=== PATIENT | male | born 1965 | race Caucasian/White ===

== ENCOUNTER 2018-03-26 18:21 | Inpatient (IN) | payer BC, OTHER ==
[2018-03-26] MEDS ORDERED: ONDANSETRON 4 MG/2 ML VIAL IVP STA ×2 (18:37→19:40)
[2018-03-26] MEDS ORDERED: SODIUM CHLORIDE 0.9% 1,000 ML IV ONE ×2 (18:37→19:39)
--- NOTE | 2018-03-26 18:42 | ED ---
General Adult HPI - General Chief complaint: Psychiatric Symptoms Stated complaint: EPS eval Time Seen by Provider: 03/26/18 18:25 Source: patient, EMS, RN notes reviewed Mode of arrival: EMS Limitations: no limitations - History of Present Illness Initial comments: This is a 53-year-old male presents emergency department because he is intoxicated. Patient states she's been vomiting all day today though he keeps drinking alcohol. Patient states she's here because it like to be detoxed. Patient denies any drug use. Patient denies suicidal or homicidal ideations. Patient denies any pain. Patient states his only complaint is a vomiting he wants to stop drinking. Patient denies headache patient denies numbness weakness. Patient denies chest pain palpitations difficulty breathing or shortness of breath. Patient denies any recent fever chills or cough. She denies abdominal pain. Patient remains nauseated. - Related Data Home Medications Medication Instructions Recorded Confirmed Losartan Potassium 100 mg PO DAILY 08/06/15 09/04/15 traZODone HCL 450 mg PO HS 08/06/15 09/04/15 Previous Rx's Medication Instructions Recorded ALPRAZolam [Xanax] 0.5 mg PO BID PRN #40 tablet 09/07/15 Omeprazole [PriLOSEC] 40 mg PO DAILY #30 capsule. 09/07/15 Allergies Allergy/AdvReac Type Severity Reaction Status Date / Time No Known Allergies Allergy Verified 03/26/18 18:27 Review of Systems ROS Statement: Those systems with pertinent positive or pertinent negative responses have been documented in the HPI. ROS Other: All systems not noted in ROS Statement are negative. Past Medical History Past Medical History: Hypertension, Pneumonia Additional Past Medical History / Comment(s): etoh abuse History of Any Multi-Drug Resistant Organisms: None Reported Past Surgical History: Breast Surgery Additional Past Surgical History / Comment(s): fatty mass removed from breast right 2005. wisdom teeth removed Past Anesthesia/Blood Transfusion Reactions: No Reported Reaction Past Psychological History: Anxiety, Depression Smoking Status: Former smoker Past Alcohol Use History: Abuse, Daily, Heavy Past Drug Use History: None Reported - Past Family History Father Additional Family Medical History / Comment(s): heavy etoh and depression General Exam - General Exam Comments Initial Comments: GENERAL: Patient is well-developed and well-nourished. Patient is nontoxic and well- hydrated and is in no acute distress. Patient appears intoxicated ENT: Neck is soft and supple. No significant lymphadenopathy is noted. Oropharynx is clear. Moist mucous membranes. Neck has full range of motion without eliciting any pain. EYES: The sclera were anicteric and conjunctiva were pink and moist. Extraocular movements were intact and pupils were equal round and reactive to light. Eyelids were unremarkable. PULMONARY: Unlabored respirations. Good breath sounds bilaterally. No audible rales rhonchi or wheezing was noted. CARDIOVASCULAR: There is a regular rate and rhythm without any murmurs gallops or rubs. ABDOMEN: Soft and nontender with normal bowel sounds. No palpable organomegaly was noted. There is no palpable pulsatile mass. SKIN: Skin is clear with no lesions or rashes and otherwise unremarkable. NEUROLOGIC: Patient is alert and oriented x3. Cranial nerves II through XII are grossly intact. Motor and sensory are also intact. Normal speech, volume and content. Symmetrical smile. MUSCULOSKELETAL: Normal extremities with adequate strength and full range of motion. No lower extremity swelling or edema. No calf tenderness. LYMPHATICS: No significant lymphadenopathy is noted PSYCHIATRIC: Normal psychiatric evaluation. Normal interpersonal interactions appears functionally intact in deals appropriately with others. No signs of depression. No signs of anxiety patient denies suicidal or homicidal ideations. Limitations: no limitations Course Vital Signs 03/26/18 18:27 Temperature 98.6 F Pulse Rate 104 H Respiratory 18 Rate Blood Pressure 132/70 O2 Sat by Pulse 98 Oximetry Medical Decision Making - Medical Decision Making Patient denied suicidal ideations to myself but he did tell nursing after I spoke with him that he was suicidal and he told EMS prior to me speaking to them that he was suicidal. Patient will be evaluated by psych after he is sober - Lab Data Result diagrams: 03/26/18 18:50 03/26/18 18:50 Lab Results 03/26/18 03/26/18 Range/Units 18:50 18:50 WBC 9.2 (3.8-10.6) k/uL RBC 4.98 (4.30-5.90) m/uL Hgb 16.3 (13.0-17.5) gm/dL Hct 48.0 (39.0-53.0) % MCV 96.4 (80.0-100.0) fL MCH 32.7 (25.0-35.0) pg MCHC 33.9 (31.0-37.0) g/dL RDW 17.7 H (11.5-15.5) % Plt Count 128 L (150-450) k/uL Neutrophils % 92 % Lymphocytes % 3 % Monocytes % 3 % Eosinophils % 1 % Basophils % 0 % Neutrophils # 8.5 H (1.3-7.7) k/uL Lymphocytes # 0.3 L (1.0-4.8) k/uL Monocytes # 0.3 (0-1.0) k/uL Eosinophils # 0.1 (0-0.7) k/uL Basophils # 0.0 (0-0.2) k/uL Anisocytosis Slight Macrocytosis Slight Sodium 137 (137-145) mmol/L Potassium 3.3 L (3.5-5.1) mmol/L Chloride 85 L (98-107) mmol/L Carbon Dioxide 18 L (22-30) mmol/L Anion Gap 34 mmol/L BUN 11 (9-20) mg/dL Creatinine 0.90 (0.66-1.25) mg/dL Est GFR (CKD-EPI)AfAm >90 (>60 ml/min/1.73 sqM) Est GFR (CKD-EPI)NonAf >90 (>60 ml/min/1.73 sqM) Glucose 115 H (74-99) mg/dL Calcium 8.4 (8.4-10.2) mg/dL Magnesium 1.9 (1.6-2.3) mg/dL Total Bilirubin 1.7 H (0.2-1.3) mg/dL AST 189 H (17-59) U/L ALT 163 H (21-72) U/L Alkaline Phosphatase 49 (38-126) U/L Total Protein 7.1 (6.3-8.2) g/dL Albumin 4.7 (3.5-5.0) g/dL Serum Alcohol 388 mg/dL Disposition Clinical Impression: Alcohol intoxication, Suicidal ideations Disposition: ADMITTED IP TO THIS HOSP Referrals: Wally Steward MD [Primary Care Provider] - 1-2 days Time of Disposition: 19:38
[2018-03-26] MEDS ORDERED: SODIUM CHLORIDE 0.9% 1,000 ML with MVI, ADULT NO.4 WITH VIT K 10 ML, THIAMINE 100 MG, F... IV ONE ×4 (19:00)
[2018-03-26 19:04] LABS: Anisocytosis Slight; Basophils % (A) 0 %; Eosinophils # (A) 0.1 k/uL (0-0.7); Eosinophils % (A) 1 %; HGB 16.3 gm/dL (13.0-17.5); Lymphocytes # (A) 0.3 k/uL (1.0-4.8); Lymphocytes % (A) 3 %; MCH 32.7 pg (25.0-35.0); MCHC 33.9 g/dL (31.0-37.0); MCV 96.4 fL (80.0-100.0); Macrocytosis Slight; Monocytes # (A) 0.3 k/uL (0-1.0); Monocytes % (A) 3 %; Neutrophils # (A) 8.5 k/uL (1.3-7.7); Neutrophils % (A) 92 %; Platelet Count 128 k/uL (150-450); RBC 4.98 m/uL (4.30-5.90); RDW 17.7 % (11.5-15.5); WBC 9.2 k/uL (3.8-10.6)
[2018-03-26 19:15] LABS: ALT 163 U/L (21-72); AST 189 U/L (17-59); Albumin 4.7 g/dL (3.5-5.0); Alkaline Phosphatase 49 U/L (38-126); Anion Gap 34 mmol/L; Blood Urea Nitrogen 11 mg/dL (9-20); Calcium 8.4 mg/dL (8.4-10.2); Carbon Dioxide 18 mmol/L (22-30); Chloride 85 mmol/L (98-107); Glucose 115 mg/dL (74-99); Magnesium 1.9 mg/dL (1.6-2.3); Potassium 3.3 mmol/L (3.5-5.1); Sodium 137 mmol/L (137-145); Total Bilirubin 1.7 mg/dL (0.2-1.3); Total Protein 7.1 g/dL (6.3-8.2)
[2018-03-26 19:29] LABS: Alcohol 388 mg/dL
[2018-03-26] MEDS ORDERED: LORazepam 2 MG/ML INJ IV PRN (19:39)
[2018-03-26] MEDS ORDERED: THIAMINE 100 MG/ML 2 ML VIAL IM STA (19:39)
[2018-03-26] MEDS: LORazepam 2 MG/ML INJ IV PRN ×3 (20:40→22:47)
[2018-03-26 21:49] LABS: Amphetamine Screen,Urine Not Detected (NotDetected); Barbiturate Screen,Urine Not Detected (NotDetected); Benzodiazepines Screen,Urine Not Detected (NotDetected); Cocaine Screen,Urine Not Detected (NotDetected); Methadone Screen, Urine Not Detected (NotDetected); Opiate Screen,Urine Not Detected (NotDetected); Oxycodone Screen, Urine Not Detected (NotDetected); Phencyclidine Screen,Urine Not Detected (NotDetected); Tricyclic Antidepressant,Urine Not Detected (NotDetected); Urn Cannabinoid Scrn Not Detected (NotDetected)
[2018-03-27] MEDS: LORazepam 2 MG/ML INJ IV PRN ×6 (01:55→23:24)
[2018-03-27] MEDS: ONDANSETRON 4 MG/2 ML VIAL IVP PRN (03:44)
[2018-03-27 07:17] LABS: Anisocytosis Slight; Basophils % (A) 0 %; Eosinophils # (A) 0.1 k/uL (0-0.7); Eosinophils % (A) 1 %; HCT 42.6 % (39.0-53.0); Lymphocytes # (A) 0.5 k/uL (1.0-4.8); Lymphocytes % (A) 5 %; MCH 31.7 pg (25.0-35.0); MCHC 32.8 g/dL (31.0-37.0); MCV 96.8 fL (80.0-100.0); Macrocytosis Slight; Monocytes # (A) 0.4 k/uL (0-1.0); Monocytes % (A) 4 %; Neutrophils # (A) 7.9 k/uL (1.3-7.7); Neutrophils % (A) 89 %; Platelet Count 128 k/uL (150-450); RDW 17.4 % (11.5-15.5)
[2018-03-27 07:29] LABS: Anion Gap 24 mmol/L; Blood Urea Nitrogen 17 mg/dL (9-20); Calcium 7.9 mg/dL (8.4-10.2); Carbon Dioxide 24 mmol/L (22-30); Chloride 87 mmol/L (98-107); Glucose 128 mg/dL (74-99); Potassium 3.6 mmol/L (3.5-5.1); Sodium 135 mmol/L (137-145)
[2018-03-27 07:35] LABS: Glucose,Whole Blood 143 mg/dL (75-99)
--- NOTE | 2018-03-27 08:44 | P.CONS ---
History of Present Illness - Reason for Consult Consult date: 03/27/18 GI bleed Requesting physician: Wally Steward - History of Present Illness 53-year-old male admitted with acute emesis intoxicated requesting assistance with alcohol abuse. Patient has been binge drinking liquor on a daily basis for 3 weeks. Prior to that he has been sober. He has a history of depression and EtOH abuse. Earlier this morning he had 2 large coffee-ground mixed burgundy-colored emesis total of about 300-400 mL. He is transferred to the ICU for further monitoring. Presently he is reporting some mild midepigastric discomfort. His last emesis was within a half hour personally witnessed a mixed of coffee-ground breast-colored bile. Sandostatin and intravenous Protonix started. Admission he will and 16.3 presently 14. Platelet 128. BUN 17. Creatinine 0.7. Total bilirubin 1.7. AST 189. ALT 163. Alkaline phosphates 49. Serum alcohol yesterday evening 388. Endoscopic history: 1. EGD August 2015 secondary to an upper GI bleed findings were severe erosive esophagitis with ulceration. Review of Systems Constitutional: Denies fever, chills, sweats, weight gain, or loss. HEENT: Negative for migraines, blurred vision or loss, earaches, drainage, tinnitus, oral mucosal lesions, dysphagia, or odynophagia. Cardiac: Negative for chest pain, arrhythmias, or palpitation. Respiratory: Negative for shortness of breath, hemoptysis, cough, or sputum production. Gastrointestinal: See HPI for pertinent findings. Genitourinary: Negative for hematuria, urgency, frequency, polyuria, dysuria, or penile discharge. Musculoskeletal: Negative for muscle aches, swelling, arthritis, and arthralgias. Neurologic: Negative for stroke or TIA. Endocrine: Negative for thyroid problems. Skin: Negative for rash or itching. Psychiatric: Negative history for depression and anxiety Past Medical History Past Medical History: Hypertension, Pneumonia Additional Past Medical History / Comment(s): etoh abuse History of Any Multi-Drug Resistant Organisms: None Reported Past Surgical History: Breast Surgery Additional Past Surgical History / Comment(s): fatty mass removed from breast right 2005. wisdom teeth removed Past Anesthesia/Blood Transfusion Reactions: No Reported Reaction Past Psychological History: Anxiety, Depression Smoking Status: Former smoker Past Alcohol Use History: Abuse, Daily, Heavy Past Drug Use History: None Reported - Past Family History Mother Family Medical History: No Reported History Father Additional Family Medical History / Comment(s): heavy etoh and depression Medications and Allergies Home Medications Medication Instructions Recorded Confirmed Type Losartan Potassium 100 mg PO DAILY 08/06/15 09/04/15 History traZODone HCL 450 mg PO HS 08/06/15 09/04/15 History ALPRAZolam [Xanax] 0.5 mg PO BID PRN #40 tablet 09/07/15 Rx Omeprazole [PriLOSEC] 40 mg PO DAILY #30 capsule. 09/07/15 Rx Allergies Allergy/AdvReac Type Severity Reaction Status Date / Time No Known Allergies Allergy Verified 03/26/18 18:27 Physical Exam Vitals: Vital Signs Temp Pulse Pulse Resp BP BP BP 03/27/18 06:59 98.7 F 141 H 20 125/77 03/27/18 04:17 99.3 F 120 H 18 136/70 03/26/18 22:36 99.8 F H 114 H 20 131/62 03/26/18 20:45 99.3 F 104 H 16 143/69 03/26/18 20:00 97.6 F 98 18 139/84 03/26/18 18:27 98.6 F 104 H 18 132/70 Pulse Ox 03/27/18 06:59 96 03/27/18 04:17 93 L 03/26/18 22:36 92 L 03/26/18 20:45 95 03/26/18 20:00 94 L 03/26/18 18:27 98 Intake and Output 03/26/18 03/27/18 03/27/18 22:59 06:59 14:59 Other: Voiding Method Toilet Urinal # Voids 2 2 Weight 90.718 kg General appearance: The patient is alert, oriented, in no acute distress. HET: Head is normocephalic and atraumatic. Pupils are equal and reactive. Oropharynx is clear without lesions. Neck: Supple without lymphadenopathy. Trachea midline. Heart: S1 S2. Regular rate and rhythm. Lungs: No crackles or wheezes are heard. Abdomen: Soft, mild midepigastric tenderness(, nondistended with bowel sounds. No peritoneal signs. No palpable organomegaly or masses. Extremities: Normal skin color and turgor. No cyanosis, rash, ulceration, clubbing, or edema. Radial and pedal pulses are 2/4 bilaterally. Neurological: No focal deficits. Strength and sensation are grossly intact. Results CBC & Chem 7: 03/27/18 07:05 03/27/18 07:05 Labs: Abnormal Lab Results - Last 24 Hours (Table) 03/26/18 03/26/18 03/27/18 Range/Units 18:50 18:50 07:05 RDW 17.7 H 17.4 H (11.5-15.5) % Plt Count 128 L 128 L (150-450) k/uL Neutrophils # 8.5 H 7.9 H (1.3-7.7) k/uL Lymphocytes # 0.3 L 0.5 L (1.0-4.8) k/uL Sodium (137-145) mmol/L Potassium 3.3 L (3.5-5.1) mmol/L Chloride 85 L (98-107) mmol/L Carbon Dioxide 18 L (22-30) mmol/L Glucose 115 H (74-99) mg/dL POC Glucose (mg/dL) (75-99) mg/dL Calcium (8.4-10.2) mg/dL Total Bilirubin 1.7 H (0.2-1.3) mg/dL AST 189 H (17-59) U/L ALT 163 H (21-72) U/L 03/27/18 03/27/18 Range/Units 07:05 07:32 RDW (11.5-15.5) % Plt Count (150-450) k/uL Neutrophils # (1.3-7.7) k/uL Lymphocytes # (1.0-4.8) k/uL Sodium 135 L (137-145) mmol/L Potassium (3.5-5.1) mmol/L Chloride 87 L (98-107) mmol/L Carbon Dioxide (22-30) mmol/L Glucose 128 H (74-99) mg/dL POC Glucose (mg/dL) 143 H (75-99) mg/dL Calcium 7.9 L (8.4-10.2) mg/dL Total Bilirubin (0.2-1.3) mg/dL AST (17-59) U/L ALT (21-72) U/L Assessment and Plan (1) Gastrointestinal hemorrhage Narrative/Plan: Acute upper GI bleed mixed coffee-ground mixed burgundy-colored emesis with a history of binge drinking daily 3 weeks underlying EtOH abuse and depression. Possible alcohol-induced erosive gastritis esophagitis possible peptic ulcer disease possible varices. Current Visit: No Status: Acute Code(s): K92.2 - GASTROINTESTINAL HEMORRHAGE , UNSPECIFIED SNOMED Code(s): 93785720 (2) Alcoholic hepatitis Current Visit: Yes Status: Acute Code(s): K70.10 - ALCOHOLIC HEPATITIS WITHOUT ASCITES SNOMED Code(s): 908436391 (3) Suicidal ideation Current Visit: Yes Status: Acute Code(s): R45.851 - SUICIDAL IDEATIONS SNOMED Code(s): 6052678 Plan: 1. EGD. Nothing by mouth. CBC every 6 hours. 2. IV Protonix 40 mg twice a day. Intravenous Sandostatin. 3. PT/INR. Serum alcohol reevaluation. 4. CIWA protocol. 5. Alcohol abstinence advised. 6. Social work consult patient requesting assistance for alcoholism. The premium service representative has discussed the risks, benefits and alternative therapies for the above-mentioned procedure and for both sedation/analgesia as well as necessary blood product administration, if indicated, as they pertain to this patient. The patient has indicated understanding and acceptance of the risks and procedures discussed. Thank you for this kind referral and the opportunity to participate in the care of your patient. This consultation was discussed with Dr. Do. The impression and plan of care have been directed as dictated.
[2018-03-27] MEDS: OCTREOTIDE 200 MCG in SODIUM CHLORIDE 0.9% 100 ML IV SCH ×2 (08:45→20:00)
[2018-03-27] MEDS ORDERED: SODIUM CHLORIDE 0.9% 1,000 ML IV ONE (09:01)
[2018-03-27 09:08] LABS: INR 1.1 (<1.2)
--- NOTE | 2018-03-27 09:08 | P.CNPUL ---
History of Present Illness Consult date: 03/27/18 Chief complaint: Upper GI bleeding History of present illness: A 53-year-old alcoholic coming in with acute alcohol intoxication and subsequently moved out to the ICU because of recurrent upper GI bleeding. His earlier this morning the patient has had multiple episodes of upper GI bleed was bringing up bright red blood and at times coffee-ground material in significant amounts. The patient has been estimated to throb approximately 400 mL of bloody material. He is feeling nauseous. No aspiration. No epistaxis. No melanotic stools. No abdominal pain. His alcohol level was above 300 at time of admission. He admits to binge drink alcohol. His been scoped approximately 3 years ago and he was found to have some distal esophagitis. He came in with a hemoglobin of 16.3 with subsequently dropped down to 14.0. He is tachycardic with a heart rate of 120 and going up to 1:30 sinus rhythm. He is producing urine output and he has adequate pulses in all 4 extremities. No ascites. He is awake and alert and following commands and answering questions appropriately. Renal function is also within normal limits. LFTs are abnormal with an AST of 189 and alkaline phosphatase of 49 and ALP of 163. GI is on the case. We are planning to do EGD within next few hours. Patient was started on IV Protonix. The patient was started on IV Sandostatin. Review of Systems Constitutional: Reports fatigue, Reports lethargy, Reports weight loss Eyes: denies blurred vision, denies bulging eye, denies decreased vision Ears: deny: decreased hearing, ear discharge, earache, tinnitus Ears, nose, mouth and throat: Denies headache, Denies sore throat Cardiovascular: Denies chest pain, Denies shortness of breath Respiratory: Denies cough Gastrointestinal: Reports bloating, Reports coffee ground emesis, Reports heartburn, Reports nausea Genitourinary: Reports as per HPI Musculoskeletal: Denies myalgias Musculoskeletal: absent: ankle pain, ankle stiffness, ankle swelling Integumentary: Denies pruritus, Denies rash Neurological: Denies numbness, Denies weakness Psychiatric: Denies anxiety, Denies depression Endocrine: Denies fatigue, Denies weight change Hematologic/Lymphatic: Reports as per HPI Allergic/Immunologic: Reports as per HPI Past Medical History Past Medical History: Hypertension, Pneumonia Additional Past Medical History / Comment(s): Alcoholism, previous history of upper GI bleed/esophagitis, anxiety, depression , hyperlipidemia History of Any Multi-Drug Resistant Organisms: None Reported Past Surgical History: Breast Surgery Additional Past Surgical History / Comment(s): fatty mass removed from breast right 2005, wisdom teeth removed Past Anesthesia/Blood Transfusion Reactions: No Reported Reaction Past Psychological History: Anxiety, Depression Smoking Status: Former smoker Past Alcohol Use History: Abuse, Daily, Heavy Additional Past Alcohol Use History / Comment(s): The patient binge drinks alcohol and he drank a fifth of vodka for yesterday. Past Drug Use History: None Reported - Past Family History Mother Family Medical History: No Reported History Father Additional Family Medical History / Comment(s): heavy etoh and depression Medications and Allergies Home Medications Medication Instructions Recorded Confirmed Type Losartan Potassium 100 mg PO DAILY 08/06/15 09/04/15 History traZODone HCL 450 mg PO HS 08/06/15 09/04/15 History ALPRAZolam [Xanax] 0.5 mg PO BID PRN #40 tablet 09/07/15 Rx Omeprazole [PriLOSEC] 40 mg PO DAILY #30 capsule. 09/07/15 Rx Allergies Allergy/AdvReac Type Severity Reaction Status Date / Time No Known Allergies Allergy Verified 03/26/18 18:27 Physical Exam Vitals: Vital Signs Temp Pulse Pulse Resp BP BP BP 03/27/18 06:59 98.7 F 141 H 20 125/77 03/27/18 04:17 99.3 F 120 H 18 136/70 03/26/18 22:36 99.8 F H 114 H 20 131/62 03/26/18 20:45 99.3 F 104 H 16 143/69 03/26/18 20:00 97.6 F 98 18 139/84 03/26/18 18:27 98.6 F 104 H 18 132/70 Pulse Ox 03/27/18 06:59 96 03/27/18 04:17 93 L 03/26/18 22:36 92 L 03/26/18 20:45 95 03/26/18 20:00 94 L 03/26/18 18:27 98 Intake and Output 03/26/18 03/27/18 03/27/18 22:59 06:59 14:59 Other: Voiding Method Toilet Urinal # Voids 2 2 Weight 90.718 kg Gen. appearance anxious, lethargic, looks fatigued and ill and he is having nausea and episodic emesis.Head exam was generally normal. There was no scleral icterus or corneal arcus. Mucous membranes were moist.Neck was supple and without jugular venous distension, thyromegaly, or carotid bruits. Carotids were easily palpable bilaterally. There was no adenopathy. Lung sounds are diminished and there is some scattered rhonchi heard total lung his bilaterally. No labored breathing.Cardiac exam revealed the PMI to be normally situated and sized. The rhythm was regular and no extrasystoles were noted during several minutes of auscultation. The first and second heart sounds were normal and physiologic splitting of the second heart sound was noted. There were no murmurs, rubs, clicks, or gallops.Abdominal exam revealed normal bowel sounds. The abdomen was soft, non-tender, and without masses, organomegaly, or appreciable enlargement of the abdominal aorta.Examination of the extremities revealed easily palpable radial, femoral and pedal pulses. There was no cyanosis , clubbing or edema.Examination of the skin revealed no evidence of significant rashes, suspicious appearing nevi or other concerning lesions. Neurologically awake and alert and is following commands and answering questions appropriately. Results - Laboratory Findings CBC and BMP: 03/27/18 07:05 03/27/18 07:05 Abnormal lab findings: Abnormal Labs 03/26/18 03/26/18 03/27/18 18:50 18:50 07:05 RDW 17.7 H 17.4 H Plt Count 128 L 128 L Neutrophils # 8.5 H 7.9 H Lymphocytes # 0.3 L 0.5 L Sodium Potassium 3.3 L Chloride 85 L Carbon Dioxide 18 L Glucose 115 H POC Glucose (mg/dL) Calcium Total Bilirubin 1.7 H AST 189 H ALT 163 H 03/27/18 03/27/18 07:05 07:32 RDW Plt Count Neutrophils # Lymphocytes # Sodium 135 L Potassium Chloride 87 L Carbon Dioxide Glucose 128 H POC Glucose (mg/dL) 143 H Calcium 7.9 L Total Bilirubin AST ALT Assessment and Plan Plan: Assessment 1 acute upper GI bleed, rule out esophageal variceal bleeding, rule out esophagitis, rule out peptic ulcer disease. 2 alcoholism 3 acute alcohol intoxication 4 alcoholic hepatitis 5 chronic anxiety/depression 6 sinus tachycardia secondary to above 7 questionable suicidal ideation/depression, psychiatric be asked to see the patient and the patient is a 24 hour sitter at all times. Plan Keep nothing by mouth. IV Protonix 40 minutes every 12 hours. Continue IV Sandostatin. Check amylase and lipase. Check correlation profile as soon as possible. Watch for any signs of delirium tremens and put the patient on CIWA protocol. Insert an NG tube. Stat GI consult for EGD. Check ammonia levels. SCD for DVT prophylaxis. Sitter at the bedside. Given an additional liter of IV fluids normal saline and continued IV NS at 150 mL an hour. Thiamine and folate. We'll continue to follow We'll continue to follow.
[2018-03-27 09:21] LABS: Amylase 58 U/L (30-110); Lipase 237 U/L (23-300)
[2018-03-27] MEDS ORDERED: SODIUM CHLORIDE 0.9% 2,000 ML IV ONE (10:09)
--- NOTE | 2018-03-27 10:15 | P.CN ---
Psychiatric Consult - . Consult date: 03/27/18 Consult:: IDENTIFYING DATA: Mr. Bauman is a 53-year-old male who has history of an alcohol use disorder. He presented to the ED on 03/26/2018 acutely intoxicated. He complained to the ED physician that he was vomiting all day although he continued to drink alcohol. He alleged came in hospital to "be detoxed." During the assessment process he expressed suicidal thoughts and the ED physician submitted a psychiatric consult. HISTORY OF PRESENT ILLNESS: Mr. Bauman was admitted to the ICU due to the severity of the alcohol withdrawal symptoms that included coffee-ground mixed burgundy colored emesis. I reviewed the medical record and attempted to interview the patient. He was in acute distress and was not able to fully engage in a psychiatric assessment. He stated he came to the hospital to stop drinking alcohol. He would be interested and referral to a residential substance abuse treatment once he is stable. At the time of our interview he denied thoughts of or suicide. PAST PSYCHIATRIC HISTORY: Unable to complete due to the severity of his medical symptoms. PAST MEDICAL HISTORY: According to record, he has a history of hypertension and pneumonia. ALLERGIES: NO KNOWN DRUG ALLERGIES. SUBSTANCE USE HISTORY: I was unable to give a detailed history of his alcohol use and alcohol use pattern because of the severity of his distress. He stated that he has been in several substance abuse treatment program including [facility] and [facility]. He has been involved with Alcoholics Anonymous intermittently since 2014. FAMILY PSYCHIATRIC/SUBSTANCE USE HISTORY: A cousin by suicide. SOCIAL HISTORY: At he lives alone in his home. MENTAL STATUS EXAM: He presented as a disheveled-appearing middle-aged male who was in acute distress. He was laying in a hospital bed with the one-to-one sitter and attendance. He had vomitus around his mouth and a basin next to him field with coffee ground emesis and bile-colored fluid. He had difficulty concentrating and attending to the interview. His speech was not spontaneous. He denied current suicidal ideation or wishes. He denied experiencing auditory, visual or olfactory hallucinations. IMPRESSIONS: Alcohol withdrawal, alcohol use disorder severe, alcohol induced mood disorder PLAN: Due to the severity of the patient distressed I was unable to complete a full psychiatric assessment. However, he denied current suicidal ideation, intent or plan. He is interested in substance abuse treatment and should be referred for residential substance abuse treatment prior to discharge. He is not appropriate for transfer to the psychiatric unit at this time. Thank you for the consult. 03/27/18 10:04
[2018-03-27 14:00] LABS: Anisocytosis Slight; HCT 28.2 % (39.0-53.0); MCH 32.5 pg (25.0-35.0); MCHC 32.6 g/dL (31.0-37.0); MCV 99.6 fL (80.0-100.0); Macrocytosis Slight; Mean Platelet Volume 8.5; Platelet Count 100 k/uL (150-450); RBC 2.83 m/uL (4.30-5.90); RDW 16.7 % (11.5-15.5); WBC 7.2 k/uL (3.8-10.6)
[2018-03-27 14:06] LABS: HGB 9.2 gm/dL (13.0-17.5)
[2018-03-27] MEDS: PANTOPRAZOLE 40 MG/10 ML VIAL IVP SCH ×2 (14:18→20:02)
[2018-03-27] MEDS: THIAMINE 100 MG TAB PO SCH ×2 (14:20→20:00)
[2018-03-27] MEDS ORDERED: IV FLUID CONTINUATION 1,000 ML IV ONE (16:02)
[2018-03-27] MEDS ORDERED: LIDOCAINE 1% INJ 10MG/ML (20 ML MDV) ONE (16:33)
[2018-03-27] MEDS ORDERED: PROPOFOL 10 MG/ML 20 ML VIAL IV ONE (16:33)
--- NOTE | 2018-03-27 17:23 | P.PCN ---
Date of Procedure: 03/27/18 Procedure(s) Performed: Procedure: Esophagogastroduodenoscopy Preoperative diagnosis: Upper GI bleeding and anemia. Postoperative diagnosis: 1. Hiatal hernia and significant esophagitis and possible, not actively bleeding, mucosal tear. 2. No esophageal varices. 3. Difficult evaluation of the stomach and duodenum because of significant amount of old dark blood and clots but no obvious pathology in the stomach and duodenum. Preparation and sedation: Were provided by anesthesia. Brief clinical history: Patient is a 53-year-old male admitted with acute emesis , intoxicated requesting assistance with alcohol abuse. Patient has been binge drinking liquor on a daily basis for 3 weeks. Prior to that he has been sober. He has a history of depression and EtOH abuse. The patient was moved to the intensive care unit because of ongoing vomiting of coffee-ground and burgundy colored material. Sandostatin and intravenous Protonix started. Admission Hb 16.3 then dropped to 14. Platelet 128. BUN 17. Creatinine 0.7. Total bilirubin 1.7. AST 189. ALT 163. Alkaline phosphates 49. Serum alcohol yesterday evening 388. Endoscopic history: EGD August 2015 secondary to an upper GI bleed findings were severe erosive esophagitis with ulceration. Other details are summarized in the history and physical and dictated consultation and progress notes. The patient continued to vomit dark blood and reddish secretions all morning and has been tachycardic and dropped his hemoglobin to 9.2. This evaluation is to assess for a source of active bleeding. Procedure: With the patient on his left lateral decubitus position and after informed consent and adequate sedation, I passed the Olympus-GIF 160 video upper endoscope through the cricopharyngeus down the esophagus. The endoscope was then passed into the stomach. Finally, the endoscope was passed the pylorus into the duodenum. I spent significant amount of time washing and observing for a source of bleeding. It was difficult to evaluate the stomach and duodenum because of significant amount of old dark blood and clots but I did not see any obvious pathology in the stomach and duodenum after thorough cleansing and suctioning. There was a hiatal hernia measuring around 2-3 cm and there was significant esophagitis with the esophagus almost completely covered with dark exudate. It is likely that there is a mucosal tear that is covered with exudate and not actively bleeding. I did not see any obvious esophageal varices. There was no active bleeding noted at the time of this exam. No biopsies or other interventions was indicated, then the endoscope was withdrawn. The patient tolerated the procedure well. Plan: The patient will be kept nothing by mouth except for ice chips. Will monitor his blood counts closely and continue PPI. He is also being managed for possible alcohol withdrawal.
[2018-03-27 18:37] LABS: Anisocytosis Slight; HCT 25.2 % (39.0-53.0); HGB 8.4 gm/dL (13.0-17.5); MCHC 33.2 g/dL (31.0-37.0); MCV 99.3 fL (80.0-100.0); Macrocytosis Slight; Mean Platelet Volume 8.9; Platelet Count 104 k/uL (150-450); RBC 2.53 m/uL (4.30-5.90); RDW 16.8 % (11.5-15.5); WBC 6.8 k/uL (3.8-10.6)
[2018-03-27] MEDS: SODIUM CHLORIDE 0.9% 1,000 ML IV SCH (20:01)
--- NOTE | 2018-03-27 22:15 | P.HPIM ---
History of Present Illness H&P Date: 03/27/18 Chief Complaint: Hematemesis This is a history and physical on a 53-year-old white male essentially admitted forRecurrent alcoholic binge drinking. Unfortunately, he has struggled with signitemesis at this hospitalization. He said upper GI/EGD done in the past which did not show significant varices or but's showed significant severe gastritis. He is not necessarily obtunded but Does not necessarily respond to commands but he gives me a familiar look almost seemingly recognizing who I am. The patient is otherwise a poor historian. Review of Systems ROS unobtainable: due to mental status All systems: negative Past Medical History Past Medical History: Hypertension, Pneumonia Additional Past Medical History / Comment(s): Alcoholism, previous history of upper GI bleed/esophagitis, anxiety, depression , hyperlipidemia History of Any Multi-Drug Resistant Organisms: None Reported Past Surgical History: Breast Surgery Additional Past Surgical History / Comment(s): fatty mass removed from breast right 2005, wisdom teeth removed Past Anesthesia/Blood Transfusion Reactions: No Reported Reaction Past Psychological History: Anxiety, Depression Smoking Status: Former smoker Past Alcohol Use History: Abuse, Daily, Heavy Additional Past Alcohol Use History / Comment(s): The patient binge drinks alcohol and he drank a fifth of vodka for yesterday. Past Drug Use History: None Reported - Past Family History Mother Family Medical History: No Reported History Father Additional Family Medical History / Comment(s): heavy etoh and depression Medications and Allergies Home Medications Medication Instructions Recorded Confirmed Type Losartan Potassium 100 mg PO DAILY 08/06/15 03/27/18 History traZODone HCL 450 mg PO HS 08/06/15 03/27/18 History Allergies Allergy/AdvReac Type Severity Reaction Status Date / Time No Known Allergies Allergy Verified 03/27/18 10:17 Physical Exam Vitals: Vital Signs Temp Pulse Pulse Resp BP BP BP 03/27/18 22:00 125 H 23 156/78 03/27/18 21:30 134 H 30 H 137/87 03/27/18 21:00 117 H 27 H 137/87 03/27/18 20:30 120 H 24 137/87 03/27/18 20:00 98.4 F 129 H 25 H 142/91 03/27/18 19:15 123 H 23 123/89 03/27/18 19:00 126 H 23 123/89 03/27/18 18:45 130 H 45 H 123/89 03/27/18 18:30 127 H 29 H 142/92 03/27/18 18:15 134 H 29 H 142/92 03/27/18 18:00 134 H 27 H 142/92 03/27/18 17:45 145 H 34 H 03/27/18 17:30 130 H 26 H 03/27/18 17:15 133 H 32 H 125/63 03/27/18 17:00 132 H 30 H 125/63 03/27/18 16:45 128 H 35 H 109/56 03/27/18 16:30 154 H 34 H 121/81 03/27/18 16:15 141 H 47 H 113/82 03/27/18 16:00 98.5 F 143 H 38 H 03/27/18 15:45 145 H 29 H 136/87 03/27/18 15:30 140 H 33 H 123/69 03/27/18 15:15 145 H 33 H 127/74 03/27/18 15:00 143 H 31 H 119/73 03/27/18 14:45 146 H 35 H 133/65 03/27/18 14:30 145 H 34 H 112/72 03/27/18 14:15 143 H 34 H 131/71 03/27/18 14:00 149 H 28 H 119/72 03/27/18 13:45 148 H 33 H 123/81 03/27/18 13:30 145 H 31 H 114/84 03/27/18 13:15 143 H 48 H 127/73 03/27/18 13:00 136 H 28 H 163/94 03/27/18 12:45 136 H 32 H 140/100 03/27/18 12:30 141 H 33 H 137/83 03/27/18 12:15 140 H 30 H 131/81 18 12:00 97.8 F 148 H 33 H 131/81 03/27/18 11:45 140 H 26 H 113/87 03/27/18 11:30 138 H 26 H 144/80 03/27/18 11:15 144 H 37 H 120/90 03/27/18 11:00 142 H 30 H 115/88 03/27/18 10:45 135 H 26 H 140/107 03/27/18 10:30 139 H 37 H 144/89 03/27/18 10:15 126 H 39 H 144/89 03/27/18 10:00 133 H 41 H 145/87 03/27/18 09:45 130 H 28 H 142/87 03/27/18 09:30 122 H 23 170/69 03/27/18 09:15 144 H 29 H 108/85 03/27/18 09:00 99.7 F H 132 H 37 H 149/99 03/27/18 08:45 138 H 22 134/77 03/27/18 08:30 140 H 43 H 134/77 03/27/18 08:15 129 H 43 H 140/100 03/27/18 08:09 139 H 25 H 140/100 03/27/18 06:59 98.7 F 141 H 20 125/77 03/27/18 04:17 99.3 F 120 H 18 136/70 03/26/18 22:36 99.8 F H 114 H 20 131/62 Pulse Ox 03/27/18 22:00 98 03/27/18 21:30 97 03/27/18 21:00 100 03/27/18 20:30 100 03/27/18 20:00 99 03/27/18 19:15 98 03/27/18 19:00 99 03/27/18 18:45 97 03/27/18 18:30 98 03/27/18 18:15 99 03/27/18 18:00 98 03/27/18 17:45 98 03/27/18 17:30 03/27/18 17:15 100 03/27/18 17:00 98 03/27/18 16:45 92 L 03/27/18 16:30 100 03/27/18 16:15 99 03/27/18 16:00 94 L 03/27/18 15:45 98 03/27/18 15:30 96 03/27/18 15:15 99 03/27/18 15:00 97 03/27/18 14:45 96 03/27/18 14:30 96 03/27/18 14:15 95 03/27/18 14:00 95 03/27/18 13:45 96 03/27/18 13:30 94 L 03/27/18 13:15 97 03/27/18 13:00 99 03/27/18 12:45 99 03/27/18 12:30 99 03/27/18 12:15 97 03/27/18 12:00 98 03/27/18 11:45 98 03/27/18 11:30 97 03/27/18 11:15 96 03/27/18 11:00 99 03/27/18 10:45 97 03/27/18 10:30 97 03/27/18 10:15 96 03/27/18 10:00 03/27/18 09:45 99 03/27/18 09:30 96 03/27/18 09:15 95 03/27/18 09:00 92 L 03/27/18 08:45 94 L 03/27/18 08:30 94 L 03/27/18 08:15 91 L 03/27/18 08:09 03/27/18 06:59 96 03/27/18 04:17 93 L 03/26/18 22:36 92 L Intake and Output 03/27/18 03/27/18 03/27/18 06:59 14:59 22:59 Intake Total 2750 1751 Output Total 1525 655 Balance 1225 1096 Intake: IV 2750 1650 0.9 2750 900 Intake, IV Titration 101 Amount Octreotide 200 mcg In 101 Sodium Chloride 0.9% 100 ml @ 25 MCG/HR 12.62 mls/ hr IV .Q8H1M [facility] Rx#: [id number] Output: Urine 925 655 Emesis 600 Other: Voiding Method Toilet Toilet Toilet Urinal Urinal Urinal # Voids 2 # Bowel Movements 1 - Constitutional General appearance: average body habitus, no cooperative, no no acute distress - EENT Eyes: no abnormal pupil - Respiratory Respiratory: bilateral: CTA - Cardiovascular Rhythm: regular Heart sounds: normal: S1, S2 Abnormal Heart Sounds: no S3 Gallop - Gastrointestinal General gastrointestinal: soft, no tenderness - Integumentary Integumentary: no rash - Neurologic Neurologic: CNII-XII intact - Psychiatric Psychiatric: no A&O x's 3, no intact judgment & insight Results CBC & Chem 7: 03/27/18 18:15 03/27/18 07:05 Labs: Abnormal Lab Results - Last 24 Hours (Table) 05/03/27/18 03/27/18 Range/Units 07:05 07:05 07:32 RBC (4.30-5.90) m/uL Hgb (13.0-17.5) gm/dL Hct (39.0-53.0) % RDW 17.4 H (11.5-15.5) % Plt Count 128 L (150-450) k/uL Neutrophils # 7.9 H (1.3-7.7) k/uL Lymphocytes # 0.5 L (1.0-4.8) k/uL Sodium 135 L (137-145) mmol/L Chloride 87 L (98-107) mmol/L Glucose 128 H (74-99) mg/dL POC Glucose (mg/dL) 143 H (75-99) mg/dL Calcium 7.9 L (8.4-10.2) mg/dL Ammonia (<30) umol/L 03/27/18 03/27/18 03/27/18 Range/Units 09:27 13:47 18:15 RBC 2.83 L 2.53 L (4.30-5.90) m/uL Hgb 9.2 L D 8.4 L (13.0-17.5) gm/dL Hct 28.2 L 25.2 L (39.0-53.0) % RDW 16.7 H 16.8 H (11.5-15.5) % Plt Count 100 L 104 L (150-450) k/uL Neutrophils # (1.3-7.7) k/uL Lymphocytes # (1.0-4.8) k/uL Sodium (137-145) mmol/L Chloride (98-107) mmol/L Glucose (74-99) mg/dL POC Glucose (mg/dL) (75-99) mg/dL Calcium (8.4-10.2) mg/dL Ammonia 56 H (<30) umol/L Assessment and Plan (1) Alcohol intoxication Current Visit: Yes Status: Acute Code(s): F10.129 - ALCOHOL ABUSE WITH INTOXICATION, UNSPECIFIED SNOMED Code(s): 16437007 (2) Alcoholic hepatitis Current Visit: Yes Status: Acute Code(s): K70.10 - ALCOHOLIC HEPATITIS WITHOUT ASCITES SNOMED Code(s): 337136551 (3) Gastrointestinal hemorrhage Current Visit: No Status: Acute Code(s): K92.2 - GASTROINTESTINAL HEMORRHAGE , UNSPECIFIED SNOMED Code(s): 15563005 Plan: The patient was transferred to the ICU for apprpriate observation and serial CBCs. We will go ahead and consult critical care and GI per Prognosis is guarded secondary to the significant hematemesis. We will continue to follow and check CBC in the a.m. Time with Patient: Greater than 30
[2018-03-27 22:51] LABS: Anisocytosis Slight; HCT 24.3 % (39.0-53.0); HGB 7.7 gm/dL (13.0-17.5); MCH 31.6 pg (25.0-35.0); MCHC 31.8 g/dL (31.0-37.0); MCV 99.2 fL (80.0-100.0); Macrocytosis Slight; Platelet Count 101 k/uL (150-450); RBC 2.45 m/uL (4.30-5.90); WBC 7.1 k/uL (3.8-10.6)
[2018-03-28] MEDS: LORazepam 2 MG/ML INJ IV PRN ×8 (00:30→23:23)
[2018-03-28] MEDS: ONDANSETRON 4 MG/2 ML VIAL IVP PRN (00:58)
[2018-03-28 01:57] LABS: Anisocytosis Slight; HGB 7.1 gm/dL (13.0-17.5); MCH 32.6 pg (25.0-35.0); MCHC 33.6 g/dL (31.0-37.0); MCV 97.1 fL (80.0-100.0); Macrocytosis Slight; Mean Platelet Volume 10.9; RBC 2.16 m/uL (4.30-5.90); RDW 16.7 % (11.5-15.5); WBC 5.5 k/uL (3.8-10.6)
[2018-03-28 02:29] LABS: ALT 343 U/L (21-72); AST 713 U/L (17-59); Albumin 2.8 g/dL (3.5-5.0); Alkaline Phosphatase 28 U/L (38-126); Anion Gap 11 mmol/L; Blood Urea Nitrogen 19 mg/dL (9-20); Calcium 6.9 mg/dL (8.4-10.2); Carbon Dioxide 28 mmol/L (22-30); Chloride 103 mmol/L (98-107); Glucose 130 mg/dL (74-99); Potassium 3.6 mmol/L (3.5-5.1); Sodium 142 mmol/L (137-145); Total Bilirubin 1.1 mg/dL (0.2-1.3); Total Protein 4.6 g/dL (6.3-8.2)
[2018-03-28 02:46] LABS: Platelet Count 78 k/uL (150-450)
[2018-03-28] MEDS: SODIUM CHLORIDE 0.9% 1,000 ML IV SCH ×4 (03:34→23:22)
[2018-03-28] MEDS ORDERED: Potassium Replacement Protocol 1 EACH MISC MISCELLANE PRN (04:34)
[2018-03-28] MEDS ORDERED: FUROSEMIDE 10 MG/ML 4 ML VIAL IV STA (05:53)
[2018-03-28] MEDS: POTASSIUM CHLORIDE 10 MEQ in WATER FOR INJECTION 1 100ML.BAG IVPB SCH ×4 (06:39→17:52)
[2018-03-28 07:10] LABS: Anisocytosis Slight; MCH 32.7 pg (25.0-35.0); MCHC 33.4 g/dL (31.0-37.0); MCV 97.8 fL (80.0-100.0); Macrocytosis Slight; Mean Platelet Volume 9.1; RBC 1.93 m/uL (4.30-5.90); RDW 16.6 % (11.5-15.5); WBC 4.3 k/uL (3.8-10.6)
[2018-03-28 07:17] LABS: HCT 18.9 % (39.0-53.0); HGB 6.3 gm/dL (13.0-17.5)
[2018-03-28 07:18] LABS: Platelet Count 94 k/uL (150-450)
--- NOTE | 2018-03-28 07:51 | P.PN ---
Subjective Progress Note Date: 03/28/18 Principal diagnosis: This is a continue present 53-year-old white male essentially admitted for hematemesis with binge alcohol episode. The patient struggles with depression. EGD did not show overt source of bleeding but most likely is a mucosal tear secondary to the severe hematemesis. No soft show varices is noted. No significant chest pain or shortness of breath. Significant agitation is noted and tremens is noted. Objective - Vital Signs Vital signs: Vital Signs Temp 99 F 03/28/18 05:53 Pulse 121 H 03/28/18 07:00 Resp 26 H 03/28/18 07:00 BP 148/87 03/28/18 07:00 Pulse Ox 100 03/28/18 07:00 Intake & Output 03/27/18 03/28/18 03/28/18 18:59 06:59 18:59 Intake Total 4051 1890 75 Output Total 1870 1635 350 Balance 2181 255 -275 Weight 83.6 kg Intake: IV 3950 1650 75 0.9 3200 1650 75 Intake, IV Titration 101 Amount Octreotide 200 mcg In 101 Sodium Chloride 0.9% 100 ml @ 25 MCG/HR 12.62 mls/ hr IV .Q8H1M [facility] Rx#: [id number] Oral 240 Output: Urine 1270 1635 350 Emesis 600 Other: Voiding Method Toilet Indwelling Catheter Urinal # Bowel Movements 1 1 - Constitutional General appearance: Present: average body habitus - EENT Eyes: Absent: abnormal pupil - Respiratory Respiratory: bilateral: CTA - Cardiovascular Rhythm: regular Heart sounds: normal: S1, S2 Abnormal Heart Sounds: Absent: S3 Gallop - Gastrointestinal General gastrointestinal: Present: soft. Absent: tenderness - Integumentary Integumentary: Absent: cyanotic, jaundiced - Psychiatric Psychiatric: Absent: intact judgment & insight - Labs CBC & Chem 7: 03/28/18 06:33 03/28/18 01:47 Labs: Abnormal Lab Results - Last 24 Hours (Table) 03/27/18 03/27/18 03/27/18 Range/Units 09:27 13:47 18:15 RBC 2.83 L 2.53 L (4.30-5.90) m/uL Hgb 9.2 L D 8.4 L (13.0-17.5) gm/dL Hct 28.2 L 25.2 L (39.0-53.0) % RDW 16.7 H 16.8 H (11.5-15.5) % Plt Count 100 L 104 L (150-450) k/uL Glucose (74-99) mg/dL Calcium (8.4-10.2) mg/dL AST (17-59) U/L ALT (21-72) U/L Alkaline Phosphatase (38-126) U/L Ammonia 56 H (<30) umol/L Total Protein (6.3-8.2) g/dL Albumin (3.5-5.0) g/dL Crossmatch 03/27/18 03/27/18 03/28/18 Range/Units 22:22 23:42 01:47 RBC 2.45 L 2.16 L (4.30-5.90) m/uL Hgb 7.7 L 7.1 L (13.0-17.5) gm/dL Hct 24.3 L 21.0 L (39.0-53.0) % RDW 17.0 H 16.7 H (11.5-15.5) % Plt Count 101 L 78 L (150-450) k/uL Glucose (74-99) mg/dL Calcium (8.4-10.2) mg/dL AST (17-59) U/L ALT (21-72) U/L Alkaline Phosphatase (38-126) U/L Ammonia (<30) umol/L Total Protein (6.3-8.2) g/dL Albumin (3.5-5.0) g/dL Crossmatch See Detail 03/28/18 03/28/18 Range/Units 01:47 06:33 RBC 1.93 L (4.30-5.90) m/uL Hgb 6.3 L* (13.0-17.5) gm/dL Hct 18.9 L* (39.0-53.0) % RDW 16.6 H (11.5-15.5) % Plt Count 94 L (150-450) k/uL Glucose 130 H (74-99) mg/dL Calcium 6.9 L (8.4-10.2) mg/dL AST 713 H (17-59) U/L ALT 343 H (21-72) U/L Alkaline Phosphatase 28 L (38-126) U/L Ammonia (<30) umol/L Total Protein 4.6 L (6.3-8.2) g/dL Albumin 2.8 L (3.5-5.0) g/dL Crossmatch Assessment and Plan (1) Alcohol intoxication Current Visit: Yes Status: Acute Code(s): F10.129 - ALCOHOL ABUSE WITH INTOXICATION, UNSPECIFIED SNOMED Code(s): 57508605 (2) Alcoholic hepatitis Current Visit: Yes Status: Acute Code(s): K70.10 - ALCOHOLIC HEPATITIS WITHOUT ASCITES SNOMED Code(s): 193046535 (3) Gastrointestinal hemorrhage Current Visit: No Status: Acute Code(s): K92.2 - GASTROINTESTINAL HEMORRHAGE , UNSPECIFIED SNOMED Code(s): 59721424 Plan: Transfuse per protocol. Watch H&H closely. Check CBC and CMP in a.m. Appreciate consultants input. See orders otherwise. Time with Patient: Greater than 30
--- NOTE | 2018-03-28 07:53 | XR ---
EXAMINATION TYPE: XR chest 1V portable DATE OF EXAM: 03/28/2018 COMPARISON: NONE INDICATION: Shortness of breath TECHNIQUE: Single frontal view of the chest is obtained. FINDINGS: The heart size is normal. The pulmonary vasculature is normal. The lungs are clear. Old left rib are evident. IMPRESSION: 1. No acute pulmonary process.
[2018-03-28] MEDS: PANTOPRAZOLE 40 MG/10 ML VIAL IVP SCH ×2 (08:13→20:24)
[2018-03-28] MEDS: PIPERACILLIN-TAZOBACTAM 3.375 GM in DEXTROSE/WATER 1 50ML.BAG IVPB SCH ×3 (08:28→23:36)
[2018-03-28 09:56] LABS: Glucose,Whole Blood 130 mg/dL (75-99)
[2018-03-28] MEDS: DILTIAZEM 50 MG in SODIUM CHLORIDE 0.9% 40 ML IV SCH ×4 (12:20→23:22)
[2018-03-28] MEDS: THIAMINE 100 MG TAB PO SCH ×2 (13:15→18:16)
--- NOTE | 2018-03-28 14:22 | P.PN ---
Subjective Progress Note Date: 03/28/18 53-year-old male patient is being seen in follow-up in the intensive care unit. The patient was admitted for upper GI bleeding. On today's evaluation, the patient is quite sedated. Overnight he went into delirium tremens and received a total of 60 mg of Ativan throughout the night. He is calm and comfortable and is currently into point restraints. No reported aspiration. He had a congested cough. He was started on empiric antibiotic coverage with IV Zosyn. He had a chest x-ray today that showed no acute abnormalities. In terms of the GI bleeding, the patient had upper GI bleed and this was further investigated by an EGD done yesterday which showed evidence of hiatal hernia and significant esophagitis and questionable mucosal tear that was not actively bleeding. There was no evidence of any portal hypertension or esophageal varices. There was significant amount of old dark blood and blood clots in the stomach and duodenum. The patient is on IV Protonix. The patient's hemoglobin had dropped down to 6.3 and the patient will be receiving 2 units of packed RBCs. Regulation profile is within normal limits. Renal function is also stable. Liver function tests are abnormal with an AST of 713 and an ALT of 343. The platelet count is at 94,000. Slightly tachycardic. Received approximately 5 L of IV fluids yesterday and the neck fluid balance over the past 24 hours has been in the order of 2.4 L positive. The patient subsequently this afternoon went into atrial fibrillation with rapid ventricular response. This was not associated with any hemodynamic instability. The patient was started on Cardizem drip at times becomes an hour for rate control. Echocardiogram is to follow. No chest pain for now. Objective - Vital Signs Vital signs: Vital Signs Temp 98.9 F 03/28/18 12:00 Pulse 118 H 03/28/18 13:00 Resp 22 03/28/18 13:00 BP 151/70 03/28/18 13:00 Pulse Ox 99 03/28/18 13:00 Intake & Output 03/27/18 03/28/18 03/28/18 18:59 06:59 18:59 Intake Total 4051 1890 1960.5 Output Total 1870 1635 1905 Balance 2181 255 55.5 Weight 83.6 kg Intake: IV 3950 1650 380 0.9 3200 1650 380 Intake, IV Titration 101 310.5 Amount Diltiazem 50 mg In Sodium 10.5 Chloride 0.9% 40 ml @ 10 MG/HR 10 mls/hr IV .Q5H [facility] Rx#:[id number] Octreotide 200 mcg In 101 Sodium Chloride 0.9% 100 ml @ 25 MCG/HR 12.62 mls/ hr IV .Q8H1M [facility] Rx#: [id number] Piperacillin-Tazobactam 3 50.0 .375 gm In Dextrose/Water 1 50ml.bag @ 12.5 mls/hr IVPB Q8HR [facility] Rx#: [id number] Potassium Chloride 10 meq 100 In Water For Injection 1 100ml.bag @ 100 mls/hr IVPB Q1H [facility] Rx#: [id number] Sodium Chloride 0.9% 1, 150 000 ml @ 150 mls/hr IV . Q6H40M [facility] Rx#:[id number] Oral 240 Blood Product 1220 Rc As-1 Unit 310 [id number] Rc As-1 Unit 310 [id number] Other 50 Rc As-1 Unit 50 [id number] Output: Urine 1270 1635 1905 Emesis 600 Other: Voiding Method Toilet Indwelling Catheter Incontinent Urinal Indwelling Catheter # Bowel Movements 1 1 - Exam Gen. appearance sedated and sleepy. No agitation. The patient is currently on 2 point restraints.. There was no scleral icterus or corneal arcus. Mucous membranes were moist.Neck was supple and without jugular venous distension, thyromegaly, or carotid bruits. Carotids were easily palpable bilaterally. There was no adenopathy. Lung sounds are diminished and there is some scattered rhonchi heard total lung his bilaterally. No labored breathing.Cardiac exam revealed the PMI to be normally situated and sized. The rhythm was regular and no extrasystoles were noted during several minutes of auscultation. The first and second heart sounds were normal and physiologic splitting of the second heart sound was noted. There were no murmurs, rubs, clicks, or gallops.Abdominal exam revealed normal bowel sounds. The abdomen was soft, non-tender, and without masses, organomegaly, or appreciable enlargement of the abdominal aorta.Examination of the extremities revealed easily palpable radial, femoral and pedal pulses. There was no cyanosis, clubbing or edema.Examination of the skin revealed no evidence of significant rashes, suspicious appearing nevi or other concerning lesions. Neurologically sedated this morning. The patient was having some agitation yesterday along with increased anxiety and restlessness and tremors consistent with delirium tremens. His neurologic exam remains nonfocal. - Labs CBC & Chem 7: 03/28/18 06:33 03/28/18 01:47 Labs: Abnormal Lab Results - Last 24 Hours (Table) 03/27/18 03/27/18 03/27/18 Range/Units 18:15 22:22 23:42 RBC 2.53 L 2.45 L (4.30-5.90) m/uL Hgb 8.4 L 7.7 L (13.0-17.5) gm/dL Hct 25.2 L 24.3 L (39.0-53.0) % RDW 16.8 H 17.0 H (11.5-15.5) % Plt Count 104 L 101 L (150-450) k/uL Glucose (74-99) mg/dL POC Glucose (mg/dL) (75-99) mg/dL Calcium (8.4-10.2) mg/dL AST (17-59) U/L ALT (21-72) U/L Alkaline Phosphatase (38-126) U/L Total Protein (6.3-8.2) g/dL Albumin (3.5-5.0) g/dL Crossmatch See Detail 03/28/18 03/28/18 03/28/18 Range/Units 01:47 01:47 06:33 RBC 2.16 L 1.93 L (4.30-5.90) m/uL Hgb 7.1 L 6.3 L* (13.0-17.5) gm/dL Hct 21.0 L 18.9 L* (39.0-53.0) % RDW 16.7 H 16.6 H (11.5-15.5) % Plt Count 78 L 94 L (150-450) k/uL Glucose 130 H (74-99) mg/dL POC Glucose (mg/dL) (75-99) mg/dL Calcium 6.9 L (8.4-10.2) mg/dL AST 713 H (17-59) U/L ALT 343 H (21-72) U/L Alkaline Phosphatase 28 L (38-126) U/L Total Protein 4.6 L (6.3-8.2) g/dL Albumin 2.8 L (3.5-5.0) g/dL Crossmatch 03/28/18 Range/Units 09:53 RBC (4.30-5.90) m/uL Hgb (13.0-17.5) gm/dL Hct (39.0-53.0) % RDW (11.5-15.5) % Plt Count (150-450) k/uL Glucose (74-99) mg/dL POC Glucose (mg/dL) 130 H (75-99) mg/dL Calcium (8.4-10.2) mg/dL AST (17-59) U/L ALT (21-72) U/L Alkaline Phosphatase (38-126) U/L Total Protein (6.3-8.2) g/dL Albumin (3.5-5.0) g/dL Crossmatch Assessment and Plan Plan: Assessment 1 acute upper GI bleed, secondary to severe distal esophagitis without evidence of an acute bleed. Is a questionable mucosal tear within the distal esophagus. The duodenum and the stomach are within normal limits. The patient had developed significant blood loss anemia secondary to upper GI bleeding. Hemoglobin dropped down to 6.3 and the patient will be receiving a total of 2 units of packed RBC today. 2 alcoholism, with acute alcohol intoxication, but admission 3 blood loss anemia secondary to upper GI bleeding, hemoglobin is down to 6.3 4 alcoholic hepatitis 5 chronic anxiety/depression 6 sinus tachycardia secondary to above 7 questionable suicidal ideation/depression, psychiatric ruled out this possibility of an acute suicidal ideation [place] please refer to their notes 8 alcoholic thrombocytopenia 9 sinus tachycardia secondary to intravascular volume depletion secondary to GI bleeding. 10 new-onset atrial fibrillation with rapid ventricular response, currently on Cardizem drip for rate control. Plan Keep nothing by mouth. Ativan for delirium tremens. Continue IV Protonix. Monitor mental status. Transfuse a total of 2 units of packed RBC and monitor the hemoglobin. Watch for any further signs of upper GI bleed. IV Sandostatin was discontinued. Sequential compression devices to lower extremities bilaterally for DVT prophylaxis. We'll continue to follow make further recommendations based on her progress. Obtain echocardiogram. Obtain thyroid function test. The patient will be kept in the intensive care unit.
[2018-03-28 15:08] LABS: Anisocytosis Slight; HCT 27.4 % (39.0-53.0); MCH 31.9 pg (25.0-35.0); MCHC 33.7 g/dL (31.0-37.0); MCV 94.5 fL (80.0-100.0); WBC 5.3 k/uL (3.8-10.6)
[2018-03-28 15:15] LABS: HGB 9.2 gm/dL (13.0-17.5); Platelet Count 90 k/uL (150-450)
[2018-03-28 18:14] LABS: Glucose,Whole Blood 108 mg/dL (75-99)
[2018-03-28 22:25] LABS: Potassium 3.5 mmol/L (3.5-5.1)
[2018-03-28] MEDS: POTASSIUM CHLORIDE ER 20 MEQ TAB.ER PO SCH (23:22)
[2018-03-28 23:26] LABS: Glucose,Whole Blood 92 mg/dL (75-99)
[2018-03-28] MEDS: INSULIN ASPART 100 UNIT/ML 1 ML 10 ML VIAL SQ SCH (23:28)
[2018-03-28] MEDS: MAG HYDROX/AL HYDROX/SIMETH 30 ML CUP PO PRN (23:39)
[2018-03-29] MEDS: POTASSIUM CHLORIDE ER 20 MEQ TAB.ER PO SCH (00:54)
[2018-03-29] MEDS ORDERED: LORazepam 2 MG/ML INJ ONE ×2 (02:00)
[2018-03-29 05:10] LABS: Hemoglobin A1C 5.1 % (4.0-6.0)
[2018-03-29 05:56] LABS: ALT 868 U/L (21-72); Albumin 2.5 g/dL (3.5-5.0); Alkaline Phosphatase 32 U/L (38-126); Anion Gap 9 mmol/L; Blood Urea Nitrogen 11 mg/dL (9-20); Calcium 7.2 mg/dL (8.4-10.2); Carbon Dioxide 31 mmol/L (22-30); Chloride 101 mmol/L (98-107); Glucose 77 mg/dL (74-99); Potassium 3.3 mmol/L (3.5-5.1); Sodium 141 mmol/L (137-145); Total Bilirubin 0.9 mg/dL (0.2-1.3); Total Protein 4.5 g/dL (6.3-8.2)
[2018-03-29 06:00] LABS: Anisocytosis Slight; HGB 7.8 gm/dL (13.0-17.5); MCH 32.3 pg (25.0-35.0); MCHC 34.1 g/dL (31.0-37.0); MCV 94.7 fL (80.0-100.0); Mean Platelet Volume 8.1; Platelet Count 107 k/uL (150-450); RBC 2.43 m/uL (4.30-5.90); WBC 3.9 k/uL (3.8-10.6)
[2018-03-29] MEDS: INSULIN ASPART 100 UNIT/ML 1 ML 10 ML VIAL SQ SCH ×4 (06:18→23:49)
[2018-03-29 06:19] LABS: Glucose,Whole Blood 88 mg/dL (75-99)
[2018-03-29 07:23] LABS: AST 1605 U/L (17-59)
--- NOTE | 2018-03-29 07:44 | P.PN ---
Subjective Principal diagnosis: This is a continue present 53-year-old white male essentially admitted for hematemesis with binge alcohol episode. The patient struggles with depression. EGD did not show overt source of bleeding but most likely is a mucosal tear secondary to the severe hematemesis. No soft show varices is noted. No significant chest pain or shortness of breath. Significant agitation is noted and tremens is noted. This continue present 53-year-old white male with alcoholic hepatitis and upper GI bleed most likely esophagitis with possible mucosal tear. However no active bleeding is otherwise noted as time. Hemoglobin was low yesterday he was given 2 units PRBC. Much more lucid today, no significant tremulousness. Objective - Vital Signs Vital signs: Vital Signs Temp 98.2 F 03/29/18 00:00 Pulse 85 03/29/18 07:00 Resp 23 03/29/18 07:00 BP 145/72 03/29/18 07:00 Pulse Ox 100 03/29/18 07:00 Intake & Output 03/28/18 03/29/18 03/29/18 18:59 06:59 18:59 Intake Total 2698.0 2057.667 Output Total 2147 805 Balance 551.0 1252.667 Weight 86.1 kg Intake: IV 380 1550 0.9 380 Piperacillin-Tazobactam 3 50 .375 gm In Dextrose/Water 1 50ml.bag @ 12.5 mls/hr IVPB Q8HR [facility] Rx#: [id number] Sodium Chloride 0.9% 1, 1500 000 ml @ 150 mls/hr IV . Q6H40M [facility] Rx#:[id number] Intake, IV Titration 1048.0 507.667 Amount Diltiazem 50 mg In Sodium 60.5 45.167 Chloride 0.9% 40 ml @ 10 MG/HR 10 mls/hr IV .Q5H [facility] Rx#:[id number] Piperacillin-Tazobactam 3 87.5 12.5 .375 gm In Dextrose/Water 1 50ml.bag @ 12.5 mls/hr IVPB Q8HR [facility] Rx#: [id number] Potassium Chloride 10 meq 100 In Water For Injection 1 100ml.bag @ 100 mls/hr IVPB Q1H [facility] Rx#: [id number] Potassium Chloride 10 meq 200 In Water For Injection 1 100ml.bag @ 100 mls/hr IVPB Q1H [facility] Rx#: [id number] Sodium Chloride 0.9% 1, 600 450 000 ml @ 150 mls/hr IV . Q6H40M [facility] Rx#:[id number] Blood Product 1220 Rc As-1 Unit 310 [id number] Rc As-1 Unit 310 [id number] Other 50 Rc As-1 Unit 50 [id number] Output: Urine 2147 805 Other: Voiding Method Incontinent Indwelling Catheter Indwelling Catheter # Bowel Movements 1 - Constitutional General appearance: Present: average body habitus - EENT Eyes: Absent: abnormal pupil - Neck Neck: Absent: lymphadenopathy - Respiratory Respiratory: bilateral: CTA - Cardiovascular Rhythm: regular Heart sounds: normal: S1, S2 Abnormal Heart Sounds: Absent: S3 Gallop - Gastrointestinal General gastrointestinal: Present: soft. Absent: tenderness - Neurologic Neurologic: Present: CNII-XII intact - Psychiatric Psychiatric: Present: A&O x's 3 - Labs CBC & Chem 7: 03/29/18 04:30 03/29/18 04:30 Labs: Abnormal Lab Results - Last 24 Hours (Table) 03/27/18 03/28/18 03/28/18 Range/Units 23:42 09:53 14:35 RBC 2.90 L (4.30-5.90) m/uL Hgb 9.2 L D (13.0-17.5) gm/dL Hct 27.4 L (39.0-53.0) % RDW 17.0 H (11.5-15.5) % Plt Count 90 L (150-450) k/uL Potassium (3.5-5.1) mmol/L Carbon Dioxide (22-30) mmol/L Creatinine (0.66-1.25) mg/dL POC Glucose (mg/dL) 130 H (75-99) mg/dL Calcium (8.4-10.2) mg/dL AST (17-59) U/L ALT (21-72) U/L Alkaline Phosphatase (38-126) U/L Total Protein (6.3-8.2) g/dL Albumin (3.5-5.0) g/dL Crossmatch See Detail 05/30/18 05/30/18 05/31/18 Range/Units 14:35 18:11 04:30 RBC (4.30-5.90) m/uL Hgb (13.0-17.5) gm/dL Hct (39.0-53.0) % RDW (11.5-15.5) % Plt Count (150-450) k/uL Potassium 3.1 L 3.3 L (3.5-5.1) mmol/L Carbon Dioxide 31 H (22-30) mmol/L Creatinine 0.59 L (0.66-1.25) mg/dL POC Glucose (mg/dL) 108 H (75-99) mg/dL Calcium 7.2 L (8.4-10.2) mg/dL AST 1605 H (17-59) U/L ALT 868 H (21-72) U/L Alkaline Phosphatase 32 L (38-126) U/L Total Protein 4.5 L (6.3-8.2) g/dL Albumin 2.5 L (3.5-5.0) g/dL Crossmatch 03/29/18 Range/Units 04:30 RBC 2.43 L (4.30-5.90) m/uL Hgb 7.8 L (13.0-17.5) gm/dL Hct 23.0 L (39.0-53.0) % RDW 17.0 H (11.5-15.5) % Plt Count 107 L (150-450) k/uL Potassium (3.5-5.1) mmol/L Carbon Dioxide (22-30) mmol/L Creatinine (0.66-1.25) mg/dL POC Glucose (mg/dL) (75-99) mg/dL Calcium (8.4-10.2) mg/dL AST (17-59) U/L ALT (21-72) U/L Alkaline Phosphatase (38-126) U/L Total Protein (6.3-8.2) g/dL Albumin (3.5-5.0) g/dL Crossmatch Assessment and Plan (1) Alcohol intoxication Current Visit: Yes Status: Acute Code(s): F10.129 - ALCOHOL ABUSE WITH INTOXICATION, UNSPECIFIED SNOMED Code(s): 40250639 (2) Alcoholic hepatitis Current Visit: Yes Status: Acute Code(s): K70.10 - ALCOHOLIC HEPATITIS WITHOUT ASCITES SNOMED Code(s): 631486221 (3) Gastrointestinal hemorrhage Current Visit: No Status: Acute Code(s): K92.2 - GASTROINTESTINAL HEMORRHAGE , UNSPECIFIED SNOMED Code(s): 30119360 Plan: Continue metabolic supplementation. Advance diet per consultants. Follow H&H and CBC closely. Check CBC and CMP in a.m. Hypokalemia, 20 meq to be added to IV fluid at this time. Prognosis is improving secondary to his stability. Appreciate support from consultants. Time with Patient: Less than 30
[2018-03-29] MEDS: 0.9% NACL WITH KCL 20 MEQ/L 1,000 ML IV SCH ×3 (08:10→20:25)
--- NOTE | 2018-03-29 08:12 | ECHOF ---
Referral Reason:new aFIB MEASUREMENTS -------- HEIGHT: 175.3 cm WEIGHT: 83.5 kg BP: 151/70 RVIDd: 3.0 cm (< 3.3) IVSd: 0.9 cm (0.6 - 1.1) LVIDd: 4.5 cm (3.9 - 5.3) LVPWd: 1.1 cm (0.6 - 1.1) IVSs: 1.1 cm LVIDs: 3.3 cm LVPWs: 1.2 cm LAESV Index (A-L): 18.65 ml/m Ao Diam: 3.6 cm (2.0 - 3.7) AV Cusp: 1.7 cm (1.5 - 2.6) LA Diam: 2.5 cm (2.7 - 3.8) MV E Christiano: 0.68 m/s MV DecT: 301 ms MV A Christiano: 0.84 m/s MV E/A Ratio: 0.81 RAP: 5.00 mmHg RVSP: 17.22 mmHg FINDINGS -------- Sinus rhythm. This was a technically adequate study. The left ventricular size is normal. Left ventricular wall thickness is normal. Overall left vent ricular systolic function is normal with, an EF between 55 - 60 %. The right ventricle is normal in size and function. Normal LA size by volume 22+/-6 ml/m2. The right atrium is normal in size. The aortic valve is trileaflet, and appears structurally normal. No aortic stenosis or regurgitation. The mitral valve is normal. There is trace to mild mitral regurgitation. Trace tricuspid regurgitation present. Right ventricular systolic pressure is normal at < 35 mmHg. There is no evidence of pulmonary hypertension. Trace/mild (physiologic) pulmonic regurgitation. The aortic root size is normal. Normal inferior vena cava with normal inspiratory collapse consistent with estimated right atrial pre ssure of 5 mmHg. There is no pericardial effusion. CONCLUSIONS -------- 1. Sinus rhythm. 2. This was a technically adequate study. 3. The left ventricular size is normal. 4. Left ventricular wall thickness is normal. 5. Overall left ventricular systolic function is normal with, an EF between 55 - 60 %. 6. Normal LA size by volume 22+/-6 ml/m2. 7. The aortic valve is trileaflet, and appears structurally normal. No aortic stenosis or regurgitati on. 8. There is trace to mild mitral regurgitation. 9. Trace tricuspid regurgitation present. 10. Right ventricular systolic pressure is normal at < 35 mmHg. 11. Trace/mild (physiologic) pulmonic regurgitation. 12. The aortic root size is normal. 13. There is no pericardial effusion. 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
[2018-03-29] MEDS: PANTOPRAZOLE 40 MG/10 ML VIAL IVP SCH ×2 (08:13→20:24)
[2018-03-29] MEDS: POTASSIUM BICARBONATE/CIT AC 20 MEQ TABLET.EFF NG-TUBE SCH ×2 (08:21→08:59)
[2018-03-29] MEDS: SODIUM CHLORIDE 0.9% 1,000 ML IV SCH (08:22)
[2018-03-29] MEDS: PIPERACILLIN-TAZOBACTAM 3.375 GM in DEXTROSE/WATER 1 50ML.BAG IVPB SCH ×3 (08:59→23:45)
[2018-03-29] MEDS: MAG HYDROX/AL HYDROX/SIMETH 30 ML CUP PO PRN ×3 (09:12→20:37)
--- NOTE | 2018-03-29 09:18 | P.PN ---
Subjective Progress Note Date: 03/29/18 Principal diagnosis: Acute upper GI bleed 53-year-old male admitted with acute hematemesis alcohol intoxication binge drinking 3 weeks status post EGD 2 days ago with findings of hiatal hernia and significant esophagitis not actively bleeding mucosal tear no esophageal varices. Experiencing some alcohol withdrawal yesterday as well as A. fib with RVR. IV Cardizem. No further hematemesis. Mild midepigastric discomfort. Hemoglobin 7.8. Elevated transaminases. Total bilirubin 0.9. Objective - Vital Signs Vital signs: Vital Signs Temp 99.4 F 03/29/18 08:00 Pulse 88 03/29/18 09:00 Resp 19 03/29/18 09:00 BP 140/83 03/29/18 09:00 Pulse Ox 100 03/29/18 09:00 Intake & Output 03/28/18 03/29/18 03/29/18 18:59 06:59 18:59 Intake Total 2698.0 2057.667 912.5 Output Total 2147 805 135 Balance 551.0 1252.667 777.5 Weight 86.1 kg Intake: IV 380 1550 47.5 0.9 380 Piperacillin-Tazobactam 3 50 12.5 .375 gm In Dextrose/Water 1 50ml.bag @ 12.5 mls/hr IVPB Q8HR [facility] Rx#: [id number] Sodium Chloride 0.9% 1, 1500 35 000 ml @ 150 mls/hr IV . Q6H40M [facility] Rx#:[id number] Intake, IV Titration 1048.0 507.667 265 Amount 0.9% NaCl with KCl 20 Meq 265 /l 1,000 ml @ 150 mls/hr IV .Q6H40M [facility] Rx#: [id number] Diltiazem 50 mg In Sodium 60.5 45.167 Chloride 0.9% 40 ml @ 10 MG/HR 10 mls/hr IV .Q5H [facility] Rx#:[id number] Piperacillin-Tazobactam 3 87.5 12.5 .375 gm In Dextrose/Water 1 50ml.bag @ 12.5 mls/hr IVPB Q8HR [facility] Rx#: [id number] Potassium Chloride 10 meq 100 In Water For Injection 1 100ml.bag @ 100 mls/hr IVPB Q1H [facility] Rx#: [id number] Potassium Chloride 10 meq 200 In Water For Injection 1 100ml.bag @ 100 mls/hr IVPB Q1H [facility] Rx#: [id number] Sodium Chloride 0.9% 1, 600 450 000 ml @ 150 mls/hr IV . Q6H40M [facility] Rx#:[id number] Oral 600 Blood Product 1220 Rc As-1 Unit 310 [id number] Rc As-1 Unit 310 [id number] Other 50 Rc As-1 Unit 50 [id number] Output: Urine 2147 805 135 Other: Voiding Method Incontinent Indwelling Catheter Indwelling Catheter Indwelling Catheter # Bowel Movements 1 - Exam General appearance: The patient is alert, oriented, in no acute distress. HET: Head is normocephalic and atraumatic. Pupils are equal and reactive. Oropharynx is clear without lesions. Neck: Supple without lymphadenopathy. Trachea midline. Heart: S1 S2. Lungs: No crackles or wheezes are heard. Abdomen: Soft, midepigastric tenderness, nondistended with bowel sounds. No peritoneal signs. No palpable organomegaly or masses. Extremities: Normal skin color and turgor. No cyanosis, rash, ulceration, clubbing, or edema. Radial and pedal pulses are 2/4 bilaterally. Aldana clear yady urine Neurological: No focal deficits. Strength and sensation are grossly intact. - Labs CBC & Chem 7: 03/29/18 04:30 03/29/18 04:30 Labs: Abnormal Lab Results - Last 24 Hours (Table) 03/27/18 03/28/18 03/28/18 Range/Units 23:42 09:53 14:35 RBC 2.90 L (4.30-5.90) m/uL Hgb 9.2 L D (13.0-17.5) gm/dL Hct 27.4 L (39.0-53.0) % RDW 17.0 H (11.5-15.5) % Plt Count 90 L (150-450) k/uL Potassium (3.5-5.1) mmol/L Carbon Dioxide (22-30) mmol/L Creatinine (0.66-1.25) mg/dL POC Glucose (mg/dL) 130 H (75-99) mg/dL Calcium (8.4-10.2) mg/dL AST (17-59) U/L ALT (21-72) U/L Alkaline Phosphatase (38-126) U/L Total Protein (6.3-8.2) g/dL Albumin (3.5-5.0) g/dL Crossmatch See Detail 03/28/18 03/28/18 03/29/18 Range/Units 14:35 18:11 04:30 RBC (4.30-5.90) m/uL Hgb (13.0-17.5) gm/dL Hct (39.0-53.0) % RDW (11.5-15.5) % Plt Count (150-450) k/uL Potassium 3.1 L 3.3 L (3.5-5.1) mmol/L Carbon Dioxide 31 H (22-30) mmol/L Creatinine 0.59 L (0.66-1.25) mg/dL POC Glucose (mg/dL) 108 H (75-99) mg/dL Calcium 7.2 L (8.4-10.2) mg/dL AST 1605 H (17-59) U/L ALT 868 H (21-72) U/L Alkaline Phosphatase 32 L (38-126) U/L Total Protein 4.5 L (6.3-8.2) g/dL Albumin 2.5 L (3.5-5.0) g/dL Crossmatch 03/29/18 Range/Units 04:30 RBC 2.43 L (4.30-5.90) m/uL Hgb 7.8 L (13.0-17.5) gm/dL Hct 23.0 L (39.0-53.0) % RDW 17.0 H (11.5-15.5) % Plt Count 107 L (150-450) k/uL Potassium (3.5-5.1) mmol/L Carbon Dioxide (22-30) mmol/L Creatinine (0.66-1.25) mg/dL POC Glucose (mg/dL) (75-99) mg/dL Calcium (8.4-10.2) mg/dL AST (17-59) U/L ALT (21-72) U/L Alkaline Phosphatase (38-126) U/L Total Protein (6.3-8.2) g/dL Albumin (3.5-5.0) g/dL Crossmatch Assessment and Plan (1) Gastrointestinal hemorrhage Narrative/Plan: Acute upper GI bleed status post EGD nonbleeding mucosal tear significant esophagitis no obvious pathology in the stomach or duodenum. No evidence of esophageal varices. Current Visit: No Status: Acute Code(s): K92.2 - GASTROINTESTINAL HEMORRHAGE , UNSPECIFIED SNOMED Code(s): 97510897 (2) Alcoholic hepatitis Current Visit: Yes Status: Acute Code(s): K70.10 - ALCOHOLIC HEPATITIS WITHOUT ASCITES SNOMED Code(s): 245002467 (3) Suicidal ideation Current Visit: Yes Status: Acute Code(s): R45.851 - SUICIDAL IDEATIONS SNOMED Code(s): 1116851 (4) Acute blood loss anemia Current Visit: Yes Status: Acute Code(s): D62 - ACUTE POSTHEMORRHAGIC ANEMIA SNOMED Code(s): 924316718 (5) Atrial fibrillation with RVR Current Visit: Yes Status: Acute Code(s): I48.91 - UNSPECIFIED ATRIAL FIBRILLATION SNOMED Code(s): 761482963651197 Plan: 1. Protonix 40 mg IV twice daily. CBC monitoring. Hepatitis screen. Ultrasound abdomen limited right upper quadrant. 2. Clear liquid diet advance as tolerated. We'll continue to follow. 3. CBC CMP PT/INR in a.m. Assessment and plan of care discussed with Dr. Bautista
[2018-03-29] MEDS: LORazepam 2 MG/ML INJ IV PRN ×4 (09:20→21:50)
[2018-03-29] MEDS: DILTIAZEM 50 MG in SODIUM CHLORIDE 0.9% 40 ML IV SCH ×2 (11:51→15:11)
[2018-03-29 12:14] LABS: Glucose,Whole Blood 107 mg/dL (75-99)
[2018-03-29 12:25] LABS: Anisocytosis Slight; Basophils % (A) 0 %; Eosinophils # (A) 0.1 k/uL (0-0.7); Eosinophils % (A) 1 %; HCT 24.4 % (39.0-53.0); HGB 8.5 gm/dL (13.0-17.5); Lymphocytes % (A) 24 %; MCH 32.6 pg (25.0-35.0); MCHC 34.8 g/dL (31.0-37.0); MCV 93.5 fL (80.0-100.0); Mean Platelet Volume 9.6; Monocytes # (A) 0.2 k/uL (0-1.0); Monocytes % (A) 3 %; Neutrophils % (A) 70 %; Platelet Count 119 k/uL (150-450); RBC 2.61 m/uL (4.30-5.90); RDW 16.5 % (11.5-15.5); WBC 4.3 k/uL (3.8-10.6)
[2018-03-29 12:29] LABS: Ionized Calcium 4.6 mg/dL (4.5-5.3)
[2018-03-29 12:34] LABS: Magnesium 2.2 mg/dL (1.6-2.3); Potassium 3.9 mmol/L (3.5-5.1)
[2018-03-29] MEDS: THIAMINE 100 MG TAB PO SCH ×2 (14:51→17:10)
--- NOTE | 2018-03-29 15:12 | US ---
EXAMINATION TYPE: US abdomen limited DATE OF EXAM: 03/29/2018 COMPARISON: NONE CLINICAL HISTORY: elevated liver enzymes. Elevated liver enzymes, exam done portable in ICU EXAM MEASUREMENTS: Liver Length: 18.2 cm Gallbladder Wall: 0.2 cm CBD: 0.5 cm Right Kidney: 9.4 x 6.0 x 6.3 cm Pancreas: tail obscured by overlying midline bowel gas Liver: mildly enlarged at 18.2cm, increased echogenicity throughout, heterogeneous limiting evaluati on for hepatic masses without any definite lesion seen at this time Gallbladder: Elongated, hyperechoic echoes with dependant portion, probable sludge, wall measures wn l Evidence for sonographic Rivas's sign: no CBD: visualized portions wnl, limited by overlying bowel gas Right Kidney: wnl IMPRESSION: 1. Elongated gallbladder approaching criteria for gallbladder hydrops. Biliary sludge with no other e vidence of acute cholecystitis. 2. Findings most compatible with hepatic steatosis, appearing moderate in degree.
--- NOTE | 2018-03-29 16:02 | P.PN ---
Subjective Progress Note Date: 03/29/18 53-year-old male patient is being seen in follow-up in the intensive care unit. The patient was admitted for upper GI bleeding. On today's evaluation, the patient is quite sedated. Overnight he went into delirium tremens and received a total of 60 mg of Ativan throughout the night. He is calm and comfortable and is currently into point restraints. No reported aspiration. He had a congested cough. He was started on empiric antibiotic coverage with IV Zosyn. He had a chest x-ray today that showed no acute abnormalities. In terms of the GI bleeding, the patient had upper GI bleed and this was further investigated by an EGD done yesterday which showed evidence of hiatal hernia and significant esophagitis and questionable mucosal tear that was not actively bleeding. There was no evidence of any portal hypertension or esophageal varices. There was significant amount of old dark blood and blood clots in the stomach and duodenum. The patient is on IV Protonix. The patient's hemoglobin had dropped down to 6.3 and the patient will be receiving 2 units of packed RBCs. Regulation profile is within normal limits. Renal function is also stable. Liver function tests are abnormal with an AST of 713 and an ALT of 343. The platelet count is at 94,000. Slightly tachycardic. Received approximately 5 L of IV fluids yesterday and the neck fluid balance over the past 24 hours has been in the order of 2.4 L positive. The patient subsequently this afternoon went into atrial fibrillation with rapid ventricular response. This was not associated with any hemodynamic instability. The patient was started on Cardizem drip at times becomes an hour for rate control. Echocardiogram is to follow. No chest pain for now. On today's evaluation of 03/29/2018, this patient is much more alert and awake following commands and answering questions. He is oriented to time and place and people. No focal neurological deficits. No hallucinations. No delusions. No suicidal ideation. No agitation. No tremors. The patient was able to tolerate some clear liquid diet. No ongoing episodes of upper GI bleeding. No abdominal distention. Abnormalities in the LFTs were noted and the patient has typical manifestation of alcoholic hepatitis with elevated in and AST and ALT. Nevertheless, there is no evidence of any hepatic encephalopathy and the patient is hemodynamically stable at this point. His hemoglobin is also stable. He received a total of 2 units of packed RBCs yesterday and his hemoglobin is up to 8.5. Renal function remains stable. His cardiac rhythm is sinus. Echo was done and the patient has an ejection fraction of 55-60%. No valvular abnormalities. No edema lower extremities. No other complaints otherwise for now. Objective - Vital Signs Vital signs: Vital Signs Temp 98.6 F 03/29/18 12:00 Pulse 100 03/29/18 15:00 Resp 13 03/29/18 15:00 BP 126/84 03/29/18 15:00 Pulse Ox 100 03/29/18 15:00 Intake & Output 03/28/18 03/29/18 03/29/18 18:59 06:59 18:59 Intake Total 2698.0 2107.667 1883.333 Output Total 2147 805 1335 Balance 551.0 1302.667 548.333 Weight 86.1 kg Intake: IV 380 1550 85.0 0.9 380 Piperacillin-Tazobactam 3 50 50.0 .375 gm In Dextrose/Water 1 50ml.bag @ 12.5 mls/hr IVPB Q8HR [facility] Rx#: [id number] Sodium Chloride 0.9% 1, 1500 35 000 ml @ 150 mls/hr IV . Q6H40M [facility] Rx#:[id number] Intake, IV Titration 1048.0 230.367 3766.333 Amount 0.9% NaCl with KCl 20 Meq 1165 /l 1,000 ml @ 150 mls/hr IV .Q6H40M [facility] Rx#: [id number] Diltiazem 50 mg In Sodium 60.5 95.167 33.333 Chloride 0.9% 40 ml @ 10 MG/HR 10 mls/hr IV .Q5H [facility] Rx#:[id number] Piperacillin-Tazobactam 3 87.5 12.5 .375 gm In Dextrose/Water 1 50ml.bag @ 12.5 mls/hr IVPB Q8HR [facility] Rx#: [id number] Potassium Chloride 10 meq 100 In Water For Injection 1 100ml.bag @ 100 mls/hr IVPB Q1H [facility] Rx#: [id number] Potassium Chloride 10 meq 200 In Water For Injection 1 100ml.bag @ 100 mls/hr IVPB Q1H [facility] Rx#: [id number] Sodium Chloride 0.9% 1, 600 450 000 ml @ 150 mls/hr IV . Q6H40M [facility] Rx#:[id number] Oral 600 Blood Product 1220 Rc As-1 Unit 310 [id number] Rc As-1 Unit 310 [id number] Other 50 Rc As-1 Unit 50 [id number] Output: Urine 2147 805 1335 Other: Voiding Method Incontinent Indwelling Catheter Indwelling Catheter Indwelling Catheter # Bowel Movements 1 - Exam Gen. appearance, comfortable awake and alert and there is no focal neurological deficits. Head is atraumatic normocephalic, There was no scleral icterus or corneal arcus. Mucous membranes were moist. Neck was supple and without jugular venous distension, thyromegaly, or carotid bruits. Carotids were easily palpable bilaterally. There was no adenopathy. Lung sounds are diminished and there is some scattered rhonchi heard total lung his bilaterally. No labored breathing. Cardiac exam revealed the PMI to be normally situated and sized. The rhythm was regular and no extrasystoles were noted during several minutes of auscultation. The first and second heart sounds were normal and physiologic splitting of the second heart sound was noted. There were no murmurs, rubs, clicks, or gallops. Abdominal exam revealed normal bowel sounds. The abdomen was soft, non-tender, and without masses, organomegaly, or appreciable enlargement of the abdominal aorta.Examination of the extremities revealed easily palpable radial, femoral and pedal pulses. There was no cyanosis, clubbing or edema. Examination of the skin revealed no evidence of significant rashes, suspicious appearing nevi or other concerning lesions. Neurologically the patient is intact awake and alert and there is no focal neurological deficit at this point. - Labs CBC & Chem 7: 03/29/18 12:08 03/29/18 12:08 Labs: Abnormal Lab Results - Last 24 Hours (Table) 03/28/18 03/29/18 03/29/18 Range/Units 18:11 04:30 04:30 RBC 2.43 L (4.30-5.90) m/uL Hgb 7.8 L (13.0-17.5) gm/dL Hct 23.0 L (39.0-53.0) % RDW 17.0 H (11.5-15.5) % Plt Count 107 L (150-450) k/uL Potassium 3.3 L (3.5-5.1) mmol/L Carbon Dioxide 31 H (22-30) mmol/L Creatinine 0.59 L (0.66-1.25) mg/dL POC Glucose (mg/dL) 108 H (75-99) mg/dL Calcium 7.2 L (8.4-10.2) mg/dL AST 1605 H (17-59) U/L ALT 868 H (21-72) U/L Alkaline Phosphatase 32 L (38-126) U/L Total Protein 4.5 L (6.3-8.2) g/dL Albumin 2.5 L (3.5-5.0) g/dL 03/29/18 03/29/18 Range/Units 12:08 12:12 RBC 2.61 L (4.30-5.90) m/uL Hgb 8.5 L (13.0-17.5) gm/dL Hct 24.4 L (39.0-53.0) % RDW 16.5 H (11.5-15.5) % Plt Count 119 L (150-450) k/uL Potassium (3.5-5.1) mmol/L Carbon Dioxide (22-30) mmol/L Creatinine (0.66-1.25) mg/dL POC Glucose (mg/dL) 107 H (75-99) mg/dL Calcium (8.4-10.2) mg/dL AST (17-59) U/L ALT (21-72) U/L Alkaline Phosphatase (38-126) U/L Total Protein (6.3-8.2) g/dL Albumin (3.5-5.0) g/dL Assessment and Plan Plan: Assessment 1 acute upper GI bleed, secondary to severe distal esophagitis without evidence of an acute bleed. Is a questionable mucosal tear within the distal esophagus. The duodenum and the stomach are within normal limits. The patient is stable and the patient is not having any further episodes of bleeding for now. His hemoglobin dropped as low as 6.3 and the patient got transfused with packed RBCs. He is currently on IV Protonix. He is tolerating clear liquid diet. 2 alcoholism, with acute alcohol intoxication at the time of admission which has recovered and the patient is back to normal mentation. 3 blood loss anemia secondary to upper GI bleeding, hemoglobin is up to 8.5 4 alcoholic hepatitis, with elevation in AST and ALT. We'll monitor the findings and will add steroids if there is persistent elevation of the liver function tests. 5 chronic anxiety/depression 6 sinus tachycardia secondary to above, improved 7 questionable suicidal ideation/depression, psychiatric, nonsuicidal based on psychiatric evaluation 8 alcoholic thrombocytopenia 9 sinus tachycardia secondary to intravascular volume depletion secondary to GI bleeding. 10 new-onset atrial fibrillation with rapid ventricular response, currently on Cardizem drip for rate control. The patient is converted back to normal sinus rhythm and the echo of the heart came back within normal limits. Plan We will advance diet as tolerated. Continue IV Protonix. Monitor hemoglobin. Monitor the cardiac rhythm. IV Zosyn as an empiric antibiotic coverage for any possible aspiration. Watch for any change in mentation or signs of the extremities. Monitor liver function tests and add steroids if the patient continues to have elevation of the LFTs. We'll continue to follow.
[2018-03-29 17:19] LABS: Glucose,Whole Blood 180 mg/dL (75-99)
[2018-03-29 18:39] LABS: Anisocytosis Slight; HGB 8.1 gm/dL (13.0-17.5); MCH 31.5 pg (25.0-35.0); MCHC 33.6 g/dL (31.0-37.0); MCV 93.7 fL (80.0-100.0); Platelet Count 135 k/uL (150-450); RBC 2.56 m/uL (4.30-5.90); RDW 16.5 % (11.5-15.5); WBC 4.4 k/uL (3.8-10.6)
[2018-03-29 18:49] LABS: Hepatitis A Antibody IgM Non-Reactive (Non-Reactive); Hepatitis B Core IgM Non-Reactive (Non-Reactive)
[2018-03-29 18:55] LABS: Magnesium 2.1 mg/dL (1.6-2.3); Potassium 3.6 mmol/L (3.5-5.1)
[2018-03-29] MEDS ORDERED: POTASSIUM BICARBONATE/CIT AC 20 MEQ TABLET.EFF NG-TUBE SCH (20:00)
[2018-03-29 23:18] LABS: Glucose,Whole Blood 134 mg/dL (75-99)
[2018-03-30] MEDS: LORazepam 2 MG/ML INJ IV PRN ×5 (00:11→23:58)
[2018-03-30 00:33] LABS: Anisocytosis Slight; HCT 23.7 % (39.0-53.0); MCH 31.9 pg (25.0-35.0); MCV 93.9 fL (80.0-100.0); Mean Platelet Volume 8.5; Platelet Count 147 k/uL (150-450); RBC 2.52 m/uL (4.30-5.90); RDW 16.5 % (11.5-15.5); WBC 4.1 k/uL (3.8-10.6)
[2018-03-30 00:42] LABS: Magnesium 2.2 mg/dL (1.6-2.3); Potassium 3.9 mmol/L (3.5-5.1)
[2018-03-30] MEDS: 0.9% NACL WITH KCL 20 MEQ/L 1,000 ML IV SCH (03:31)
[2018-03-30 04:54] LABS: Anisocytosis Slight; Basophils % (A) 0 %; Eosinophils # (A) 0.1 k/uL (0-0.7); Eosinophils % (A) 2 %; HCT 24.5 % (39.0-53.0); HGB 8.4 gm/dL (13.0-17.5); Lymphocytes # (A) 1.1 k/uL (1.0-4.8); Lymphocytes % (A) 28 %; MCH 32.3 pg (25.0-35.0); MCHC 34.2 g/dL (31.0-37.0); MCV 94.3 fL (80.0-100.0); Mean Platelet Volume 8.1; Monocytes # (A) 0.2 k/uL (0-1.0); Monocytes % (A) 4 %; Neutrophils # (A) 2.4 k/uL (1.3-7.7); Neutrophils % (A) 64 %; Platelet Count 166 k/uL (150-450); RBC 2.59 m/uL (4.30-5.90); RDW 16.4 % (11.5-15.5); WBC 3.7 k/uL (3.8-10.6)
[2018-03-30 05:08] LABS: ALT 963 U/L (21-72); Albumin 2.8 g/dL (3.5-5.0); Alkaline Phosphatase 36 U/L (38-126); Anion Gap 6 mmol/L; Blood Urea Nitrogen 6 mg/dL (9-20); Calcium 7.8 mg/dL (8.4-10.2); Carbon Dioxide 26 mmol/L (22-30); Chloride 102 mmol/L (98-107); Glucose 89 mg/dL (74-99); Magnesium 2.2 mg/dL (1.6-2.3); Sodium 134 mmol/L (137-145); Total Bilirubin 0.7 mg/dL (0.2-1.3); Total Protein 4.8 g/dL (6.3-8.2)
[2018-03-30 05:14] LABS: AST 920 U/L (17-59)
[2018-03-30 05:29] LABS: Phosphorus 1.2 mg/dL (2.5-4.5)
[2018-03-30] MEDS ORDERED: Phosphorus Replacement Protoco 1 EACH MISC MISCELLANE PRN (05:34)
[2018-03-30] MEDS: POTASSIUM PHOSPHATE 10 MMOL in SODIUM CHLORIDE 0.9% 250 ML IV SCH ×3 (06:23→11:44)
--- NOTE | 2018-03-30 08:14 | P.PN ---
Subjective Principal diagnosis: This is a continue present 53-year-old white male essentially admitted for hematemesis with binge alcohol episode. The patient struggles with depression. EGD did not show overt source of bleeding but most likely is a mucosal tear secondary to the severe hematemesis. No soft show varices is noted. No significant chest pain or shortness of breath. Significant agitation is noted and tremens is noted. This can impression a 53-year-old white male with known history of alcoholism and had binge episode with significant hematemesis. The patient is now stabilizing and through his withdrawal.. The patient states significant epigastric pain most likely related to the retching. Mucosal tears most likely however EGD does not show any source of active bleeding or significant ulceration or varices. Objective - Vital Signs Vital signs: Vital Signs Temp 98.3 F 03/30/18 04:00 Pulse 80 03/30/18 07:00 Resp 22 03/30/18 07:00 BP 151/93 03/30/18 07:00 Pulse Ox 97 03/30/18 07:00 Intake & Output 03/29/18 03/30/18 03/30/18 18:59 06:59 18:59 Intake Total 2368.166 1850 365 Output Total 1810 2305 500 Balance 558.166 -455 -135 Weight 88.9 kg Intake: IV 110.0 75 0 0.9 0 Piperacillin-Tazobactam 3 75.0 75 .375 gm In Dextrose/Water 1 50ml.bag @ 12.5 mls/hr IVPB Q8HR [facility] Rx#: [id number] Sodium Chloride 0.9% 1, 35 000 ml @ 150 mls/hr IV . Q6H40M [facility] Rx#:[id number] Intake, IV Titration 0320.749 3432 125 Amount 0.9% NaCl with KCl 20 Meq 1615 1650 /l 1,000 ml @ 150 mls/hr IV .Q6H40M [facility] Rx#: [id number] Diltiazem 50 mg In Sodium 43.166 Chloride 0.9% 40 ml @ 10 MG/HR 10 mls/hr IV .Q5H [facility] Rx#:[id number] Potassium Phosphate 10 125 125 mmol In Sodium Chloride 0 .9% 250 ml @ 125 mls/hr IV Q2H [facility] Rx#:[id number] Oral 600 240 Output: Urine 1810 2305 500 Other: Voiding Method Indwelling Catheter Indwelling Catheter # Voids 0 - Constitutional General appearance: Present: average body habitus - EENT Eyes: Absent: anicteric sclerae - Respiratory Respiratory: bilateral: CTA - Cardiovascular Rhythm: regular Heart sounds: normal: S1 Abnormal Heart Sounds: Absent: S3 Gallop - Gastrointestinal General gastrointestinal: Present: normal bowel sounds, soft - Musculoskeletal Musculoskeletal: Present: generalized weakness - Labs CBC & Chem 7: 03/30/18 04:27 03/30/18 04:27 Labs: Abnormal Lab Results - Last 24 Hours (Table) 03/29/18 03/29/18 03/29/18 Range/Units 12:08 12:12 17:18 WBC (3.8-10.6) k/uL RBC 2.61 L (4.30-5.90) m/uL Hgb 8.5 L (13.0-17.5) gm/dL Hct 24.4 L (39.0-53.0) % RDW 16.5 H (11.5-15.5) % Plt Count 119 L (150-450) k/uL Sodium (137-145) mmol/L BUN (9-20) mg/dL Creatinine (0.66-1.25) mg/dL POC Glucose (mg/dL) 107 H 180 H (75-99) mg/dL Calcium (8.4-10.2) mg/dL Phosphorus (2.5-4.5) mg/dL AST (17-59) U/L ALT (21-72) U/L Alkaline Phosphatase (38-126) U/L Total Protein (6.3-8.2) g/dL Albumin (3.5-5.0) g/dL 03/29/18 03/29/18 03/30/18 Range/Units 18:15 23:16 00:19 WBC (3.8-10.6) k/uL RBC 2.56 L 2.52 L (4.30-5.90) m/uL Hgb 8.1 L 8.0 L (13.0-17.5) gm/dL Hct 24.0 L 23.7 L (39.0-53.0) % RDW 16.5 H 16.5 H (11.5-15.5) % Plt Count 135 L 147 L (150-450) k/uL Sodium (137-145) mmol/L BUN (9-20) mg/dL Creatinine (0.66-1.25) mg/dL POC Glucose (mg/dL) 134 H (75-99) mg/dL Calcium (8.4-10.2) mg/dL Phosphorus (2.5-4.5) mg/dL AST (17-59) U/L ALT (21-72) U/L Alkaline Phosphatase (38-126) U/L Total Protein (6.3-8.2) g/dL Albumin (3.5-5.0) g/dL 03/30/18 03/30/18 Range/Units 04:27 04:27 WBC 3.7 L (3.8-10.6) k/uL RBC 2.59 L (4.30-5.90) m/uL Hgb 8.4 L (13.0-17.5) gm/dL Hct 24.5 L (39.0-53.0) % RDW 16.4 H (11.5-15.5) % Plt Count (150-450) k/uL Sodium 134 L (137-145) mmol/L BUN 6 L (9-20) mg/dL Creatinine 0.53 L (0.66-1.25) mg/dL POC Glucose (mg/dL) (75-99) mg/dL Calcium 7.8 L (8.4-10.2) mg/dL Phosphorus 1.2 L* (2.5-4.5) mg/dL AST 920 H (17-59) U/L ALT 963 H (21-72) U/L Alkaline Phosphatase 36 L (38-126) U/L Total Protein 4.8 L (6.3-8.2) g/dL Albumin 2.8 L (3.5-5.0) g/dL Assessment and Plan (1) Alcohol intoxication Current Visit: Yes Status: Acute Code(s): F10.129 - ALCOHOL ABUSE WITH INTOXICATION, UNSPECIFIED SNOMED Code(s): 75946803 (2) Alcoholic hepatitis Current Visit: Yes Status: Acute Code(s): K70.10 - ALCOHOLIC HEPATITIS WITHOUT ASCITES SNOMED Code(s): 281307929 (3) Gastrointestinal hemorrhage Current Visit: No Status: Acute Code(s): K92.2 - GASTROINTESTINAL HEMORRHAGE , UNSPECIFIED SNOMED Code(s): 16380442 Plan: Continue current regimen or treatment. Anticipate transfer once cleared by consultants. Dr. Billings's group will be covering for the weekend. Continue GI prophylaxis and advance diet as tolerated. Check CBC and CMP in a.m. See orders otherwise.
[2018-03-30] MEDS: INSULIN ASPART 100 UNIT/ML 1 ML 10 ML VIAL SQ SCH ×4 (08:35→20:59)
[2018-03-30] MEDS: PIPERACILLIN-TAZOBACTAM 3.375 GM in DEXTROSE/WATER 1 50ML.BAG IVPB SCH (08:35)
[2018-03-30] MEDS: PANTOPRAZOLE 40 MG/10 ML VIAL IVP SCH ×2 (08:35→20:55)
--- NOTE | 2018-03-30 08:40 | P.PN ---
Subjective Progress Note Date: 03/30/18 Principal diagnosis: Acute upper GI bleed 53-year-old male admitted with acute hematemesis alcohol intoxication binge drinking 3 weeks status post EGD 3 days ago with findings of hiatal hernia and significant esophagitis not actively bleeding mucosal tear with no evidence of esophageal varices. No further hematemesis. Mild midepigastric discomfort. Hemoglobin 8.4 Transaminases improving. Afebrile. US abdomen no focal mass; biliary sludge. Hepatomegaly. CBD 0.5 cm. Hepatitis screen pending. Objective - Vital Signs Vital signs: Vital Signs Temp 98.3 F 03/30/18 04:00 Pulse 72 03/30/18 06:00 Resp 17 03/30/18 06:00 BP 163/89 03/30/18 06:00 Pulse Ox 97 03/30/18 06:00 Intake & Output 03/29/18 03/30/18 03/30/18 18:59 06:59 18:59 Intake Total 2368.166 1850 Output Total 1810 2305 Balance 558.166 -455 Weight 88.9 kg Intake: IV 110.0 75 Piperacillin-Tazobactam 3 75.0 75 .375 gm In Dextrose/Water 1 50ml.bag @ 12.5 mls/hr IVPB Q8HR [facility] Rx#: [id number] Sodium Chloride 0.9% 1, 35 000 ml @ 150 mls/hr IV . Q6H40M [facility] Rx#:[id number] Intake, IV Titration 9810.237 2172 Amount 0.9% NaCl with KCl 20 Meq 1615 1650 /l 1,000 ml @ 150 mls/hr IV .Q6H40M [facility] Rx#: [id number] Diltiazem 50 mg In Sodium 43.166 Chloride 0.9% 40 ml @ 10 MG/HR 10 mls/hr IV .Q5H [facility] Rx#:[id number] Potassium Phosphate 10 125 mmol In Sodium Chloride 0 .9% 250 ml @ 125 mls/hr IV Q2H [facility] Rx#:[id number] Oral 600 Output: Urine 1810 2305 Other: Voiding Method Indwelling Catheter Indwelling Catheter # Voids 0 - Exam General appearance: The patient is alert, oriented, in no acute distress. HET: Head is normocephalic and atraumatic. Pupils are equal and reactive. Oropharynx is clear without lesions. Neck: Supple without lymphadenopathy. Trachea midline. Heart: S1 S2. Lungs: No crackles or wheezes are heard. Abdomen: Soft, midepigastric tenderness, nondistended with bowel sounds. No peritoneal signs. No palpable organomegaly or masses. Extremities: Normal skin color and turgor. No cyanosis, rash, ulceration, clubbing, or edema. Radial and pedal pulses are 2/4 bilaterally. Aldana clear yady urine Neurological: No focal deficits. Strength and sensation are grossly intact. - Labs CBC & Chem 7: 03/30/18 04:27 03/30/18 04:27 Labs: Abnormal Lab Results - Last 24 Hours (Table) 03/29/18 03/29/18 03/29/18 Range/Units 12:08 12:12 17:18 WBC (3.8-10.6) k/uL RBC 2.61 L (4.30-5.90) m/uL Hgb 8.5 L (13.0-17.5) gm/dL Hct 24.4 L (39.0-53.0) % RDW 16.5 H (11.5-15.5) % Plt Count 119 L (150-450) k/uL Sodium (137-145) mmol/L BUN (9-20) mg/dL Creatinine (0.66-1.25) mg/dL POC Glucose (mg/dL) 107 H 180 H (75-99) mg/dL Calcium (8.4-10.2) mg/dL Phosphorus (2.5-4.5) mg/dL AST (17-59) U/L ALT (21-72) U/L Alkaline Phosphatase (38-126) U/L Total Protein (6.3-8.2) g/dL Albumin (3.5-5.0) g/dL 03/29/18 03/29/18 03/30/18 Range/Units 18:15 23:16 00:19 WBC (3.8-10.6) k/uL RBC 2.56 L 2.52 L (4.30-5.90) m/uL Hgb 8.1 L 8.0 L (13.0-17.5) gm/dL Hct 24.0 L 23.7 L (39.0-53.0) % RDW 16.5 H 16.5 H (11.5-15.5) % Plt Count 135 L 147 L (150-450) k/uL Sodium (137-145) mmol/L BUN (9-20) mg/dL Creatinine (0.66-1.25) mg/dL POC Glucose (mg/dL) 134 H (75-99) mg/dL Calcium (8.4-10.2) mg/dL Phosphorus (2.5-4.5) mg/dL AST (17-59) U/L ALT (21-72) U/L Alkaline Phosphatase (38-126) U/L Total Protein (6.3-8.2) g/dL Albumin (3.5-5.0) g/dL 03/30/18 03/30/18 Range/Units 04:27 04:27 WBC 3.7 L (3.8-10.6) k/uL RBC 2.59 L (4.30-5.90) m/uL Hgb 8.4 L (13.0-17.5) gm/dL Hct 24.5 L (39.0-53.0) % RDW 16.4 H (11.5-15.5) % Plt Count (150-450) k/uL Sodium 134 L (137-145) mmol/L BUN 6 L (9-20) mg/dL Creatinine 0.53 L (0.66-1.25) mg/dL POC Glucose (mg/dL) (75-99) mg/dL Calcium 7.8 L (8.4-10.2) mg/dL Phosphorus 1.2 L* (2.5-4.5) mg/dL AST 920 H (17-59) U/L ALT 963 H (21-72) U/L Alkaline Phosphatase 36 L (38-126) U/L Total Protein 4.8 L (6.3-8.2) g/dL Albumin 2.8 L (3.5-5.0) g/dL Assessment and Plan (1) Gastrointestinal hemorrhage Narrative/Plan: Acute upper GI bleed status post EGD nonbleeding mucosal tear significant esophagitis no obvious pathology in the stomach or duodenum. No evidence of esophageal varices. Current Visit: No Status: Acute Code(s): K92.2 - GASTROINTESTINAL HEMORRHAGE , UNSPECIFIED SNOMED Code(s): 29907224 (2) Alcoholic hepatitis Current Visit: Yes Status: Acute Code(s): K70.10 - ALCOHOLIC HEPATITIS WITHOUT ASCITES SNOMED Code(s): 645197781 (3) Suicidal ideation Current Visit: Yes Status: Acute Code(s): R45.851 - SUICIDAL IDEATIONS SNOMED Code(s): 3514415 (4) Acute blood loss anemia Current Visit: Yes Status: Acute Code(s): D62 - ACUTE POSTHEMORRHAGIC ANEMIA SNOMED Code(s): 918375262 (5) Atrial fibrillation with RVR Current Visit: Yes Status: Acute Code(s): I48.91 - UNSPECIFIED ATRIAL FIBRILLATION SNOMED Code(s): 861946154906154 (6) Hepatomegaly Current Visit: Yes Status: Chronic Code(s): R16.0 - HEPATOMEGALY, NOT ELSEWHERE CLASSIFIED SNOMED Code(s): 96776711 Plan: 1. Protonix 40 mg IV twice daily. CBC monitoring. Hepatitis screen pending. Ultrasound abdomen reviewed. 2. Diet advance as tolerated. We'll continue to follow. 3. INR stable. Assessment and plan of care discussed with Dr. Bautista
--- NOTE | 2018-03-30 09:15 | P.PN ---
Subjective Progress Note Date: 03/30/18 Principal diagnosis: GI bleed secondary to severe distal esophagitis with questionable mucosal tear within the distal esophagus, alcoholism, blood loss anemia 53-year-old male patient is being seen in follow-up in the intensive care unit. The patient was admitted for upper GI bleeding. On today's evaluation, the patient is quite sedated. Overnight he went into delirium tremens and received a total of 60 mg of Ativan throughout the night. He is calm and comfortable and is currently into point restraints. No reported aspiration. He had a congested cough. He was started on empiric antibiotic coverage with IV Zosyn. He had a chest x-ray today that showed no acute abnormalities. In terms of the GI bleeding, the patient had upper GI bleed and this was further investigated by an EGD done yesterday which showed evidence of hiatal hernia and significant esophagitis and questionable mucosal tear that was not actively bleeding. There was no evidence of any portal hypertension or esophageal varices. There was significant amount of old dark blood and blood clots in the stomach and duodenum. The patient is on IV Protonix. The patient's hemoglobin had dropped down to 6.3 and the patient will be receiving 2 units of packed RBCs. Regulation profile is within normal limits. Renal function is also stable. Liver function tests are abnormal with an AST of 713 and an ALT of 343. The platelet count is at 94,000. Slightly tachycardic. Received approximately 5 L of IV fluids yesterday and the neck fluid balance over the past 24 hours has been in the order of 2.4 L positive. The patient subsequently this afternoon went into atrial fibrillation with rapid ventricular response. This was not associated with any hemodynamic instability. The patient was started on Cardizem drip at times becomes an hour for rate control. Echocardiogram is to follow. No chest pain for now. On today's evaluation of 03/29/2018, this patient is much more alert and awake following commands and answering questions. He is oriented to time and place and people. No focal neurological deficits. No hallucinations. No delusions. No suicidal ideation. No agitation. No tremors. The patient was able to tolerate some clear liquid diet. No ongoing episodes of upper GI bleeding. No abdominal distention. Abnormalities in the LFTs were noted and the patient has typical manifestation of alcoholic hepatitis with elevated in and AST and ALT. Nevertheless, there is no evidence of any hepatic encephalopathy and the patient is hemodynamically stable at this point. His hemoglobin is also stable. He received a total of 2 units of packed RBCs yesterday and his hemoglobin is up to 8.5. Renal function remains stable. His cardiac rhythm is sinus. Echo was done and the patient has an ejection fraction of 55-60%. No valvular abnormalities. No edema lower extremities. No other complaints otherwise for now. On 03/30/2018 patient seen again in the intensive care unit. He is awake alert , denies any acute distress, no further hematemesis, no tarry stools. Patient' s blood pressure this morning was noted to be elevated at 170/80, patient has been off vasopressors. His liver enzymes are trending down, hemoglobin is stable at 8.4, patient was transfused with 2 units of packed red blood cells this admission but has not required any blood transfusions in the last 24 hours. He remains in sinus tachycardia, heart rate is better controlled, at 100 -105 BPM. We will restart patient's losartan this morning, patient continues on Protonix IV twice a day. Patient continues on CIWA protocol, he denies any suicidal ideations, he was seen by psychiatry and suicidal precautions have been lifted. He remains stable, denies any dyspnea, denies any chest pain, lung sounds are clear to auscultation this morning, he is afebrile, no leukocytosis. We will discontinue the Zosyn. Increase activity, sit up in the chair, we'll discontinue the Aldana. Patient will transfer out of the unit to regular medical surgical floor today. Objective - Vital Signs Vital signs: Vital Signs Temp 98.3 F 03/30/18 04:00 Pulse 80 03/30/18 07:00 Resp 22 03/30/18 07:00 BP 151/93 03/30/18 07:00 Pulse Ox 97 03/30/18 07:00 Intake & Output 03/29/18 03/30/18 03/30/18 18:59 06:59 18:59 Intake Total 2368.166 1850 365 Output Total 1810 2305 500 Balance 558.166 -455 -135 Weight 88.9 kg Intake: IV 110.0 75 0 0.9 0 Piperacillin-Tazobactam 3 75.0 75 .375 gm In Dextrose/Water 1 50ml.bag @ 12.5 mls/hr IVPB Q8HR [facility] Rx#: [id number] Sodium Chloride 0.9% 1, 35 000 ml @ 150 mls/hr IV . Q6H40M [facility] Rx#:[id number] Intake, IV Titration 6177.655 5834 125 Amount 0.9% NaCl with KCl 20 Meq 1615 1650 /l 1,000 ml @ 150 mls/hr IV .Q6H40M [facility] Rx#: [id number] Diltiazem 50 mg In Sodium 43.166 Chloride 0.9% 40 ml @ 10 MG/HR 10 mls/hr IV .Q5H [facility] Rx#:[id number] Potassium Phosphate 10 125 125 mmol In Sodium Chloride 0 .9% 250 ml @ 125 mls/hr IV Q2H [facility] Rx#:[id number] Oral 600 240 Output: Urine 1810 2305 500 Other: Voiding Method Indwelling Catheter Indwelling Catheter # Voids 0 - Exam Gen. appearance, comfortable awake and alert and there is no focal neurological deficits. Head is atraumatic normocephalic, There was no scleral icterus or corneal arcus. Mucous membranes were moist. Neck was supple and without jugular venous distension, thyromegaly, or carotid bruits. Carotids were easily palpable bilaterally. There was no adenopathy. Lung sounds are clear. No labored breathing. Cardiac exam revealed the PMI to be normally situated and sized. The rhythm was regular and no extrasystoles were noted during several minutes of auscultation. The first and second heart sounds were normal and physiologic splitting of the second heart sound was noted. There were no murmurs, rubs, clicks, or gallops. Abdominal exam revealed normal bowel sounds. The abdomen was soft, non-tender, and without masses, organomegaly, or appreciable enlargement of the abdominal aorta.Examination of the extremities revealed easily palpable radial, femoral and pedal pulses. There was no cyanosis, clubbing or edema. Examination of the skin revealed no evidence of significant rashes, suspicious appearing nevi or other concerning lesions. Neurologically the patient is intact awake and alert and there is no focal neurological deficit at this point. - Labs CBC & Chem 7: 03/30/18 04:27 03/30/18 04:27 Labs: Abnormal Lab Results - Last 24 Hours (Table) 03/29/18 03/29/18 03/29/18 Range/Units 12:08 12:12 17:18 WBC (3.8-10.6) k/uL RBC 2.61 L (4.30-5.90) m/uL Hgb 8.5 L (13.0-17.5) gm/dL Hct 24.4 L (39.0-53.0) % RDW 16.5 H (11.5-15.5) % Plt Count 119 L (150-450) k/uL Sodium (137-145) mmol/L BUN (9-20) mg/dL Creatinine (0.66-1.25) mg/dL POC Glucose (mg/dL) 107 H 180 H (75-99) mg/dL Calcium (8.4-10.2) mg/dL Phosphorus (2.5-4.5) mg/dL AST (17-59) U/L ALT (21-72) U/L Alkaline Phosphatase (38-126) U/L Total Protein (6.3-8.2) g/dL Albumin (3.5-5.0) g/dL 03/29/18 03/29/18 03/30/18 Range/Units 18:15 23:16 00:19 WBC (3.8-10.6) k/uL RBC 2.56 L 2.52 L (4.30-5.90) m/uL Hgb 8.1 L 8.0 L (13.0-17.5) gm/dL Hct 24.0 L 23.7 L (39.0-53.0) % RDW 16.5 H 16.5 H (11.5-15.5) % Plt Count 135 L 147 L (150-450) k/uL Sodium (137-145) mmol/L BUN (9-20) mg/dL Creatinine (0.66-1.25) mg/dL POC Glucose (mg/dL) 134 H (75-99) mg/dL Calcium (8.4-10.2) mg/dL Phosphorus (2.5-4.5) mg/dL AST (17-59) U/L ALT (21-72) U/L Alkaline Phosphatase (38-126) U/L Total Protein (6.3-8.2) g/dL Albumin (3.5-5.0) g/dL 03/30/18 03/30/18 Range/Units 04:27 04:27 WBC 3.7 L (3.8-10.6) k/uL RBC 2.59 L (4.30-5.90) m/uL Hgb 8.4 L (13.0-17.5) gm/dL Hct 24.5 L (39.0-53.0) % RDW 16.4 H (11.5-15.5) % Plt Count (150-450) k/uL Sodium 134 L (137-145) mmol/L BUN 6 L (9-20) mg/dL Creatinine 0.53 L (0.66-1.25) mg/dL POC Glucose (mg/dL) (75-99) mg/dL Calcium 7.8 L (8.4-10.2) mg/dL Phosphorus 1.2 L* (2.5-4.5) mg/dL AST 920 H (17-59) U/L ALT 963 H (21-72) U/L Alkaline Phosphatase 36 L (38-126) U/L Total Protein 4.8 L (6.3-8.2) g/dL Albumin 2.8 L (3.5-5.0) g/dL Assessment and Plan Plan: Assessment 1 acute upper GI bleed, secondary to severe distal esophagitis without evidence of an acute bleed. Is a questionable mucosal tear within the distal esophagus. The duodenum and the stomach are within normal limits. The patient is stable and the patient is not having any further episodes of bleeding for now. His hemoglobin dropped as low as 6.3 and the patient got transfused with packed RBCs. He is currently on IV Protonix. He has been tolerating clear liquid diet , with no recurrence of GI bleeding, and patient's diet will be advanced to low fiber today. 2 alcoholism, with acute alcohol intoxication at the time of admission which has recovered and the patient is back to normal mentation. 3 blood loss anemia secondary to upper GI bleeding, hemoglobin is up to 8.5 4 alcoholic hepatitis, with elevation in AST and ALT. We'll monitor the findings and will add steroids if there is persistent elevation of the liver function tests. 5 chronic anxiety/depression 6 sinus tachycardia secondary to above, improved 7 questionable suicidal ideation/depression, psychiatric, nonsuicidal based on psychiatric evaluation 8 alcoholic thrombocytopenia 9 sinus tachycardia secondary to intravascular volume depletion secondary to GI bleeding. 10 new-onset atrial fibrillation with rapid ventricular response, currently on Cardizem drip for rate control. The patient is converted back to normal sinus rhythm and the echo of the heart came back within normal limits. Plan We'll discontinue patient's IV fluids, patient is tolerating clear liquid diet, his diet is being advanced to low fiber diet today. Remains hemodynamically stable, slightly hypertensive, will restart home dose losartan. Discontinue indwelling catheter, activity, with patient sit up at the bedside. We'll discontinue Zosyn. Hemoglobin remains stable, no recurrence of hematemesis or black tarry stools. Patient is stable to transfer to regular medical surgical floor. I performed a history & physical examination of the patient and discussed their management with my nurse practitioner, Carmella Chew. I reviewed the nurse practitioner's note and agree with the documented findings and plan of care. Lung sounds are clear. The findings and the impression was discussed with the patient. I attest to the documentation by the nurse practitioner. Time with Patient: Greater than 30
[2018-03-30] MEDS: LOSARTAN 50 MG TAB PO SCH (10:22)
[2018-03-30] MEDS: MAG HYDROX/AL HYDROX/SIMETH 30 ML CUP PO PRN (10:22)
[2018-03-30] MEDS: THIAMINE 100 MG TAB PO SCH ×2 (11:44→17:40)
[2018-03-30 11:51] LABS: Glucose,Whole Blood 121 mg/dL (75-99)
[2018-03-30 12:12] LABS: Glucose,Whole Blood 119 mg/dL (75-99)
[2018-03-30 14:37] VITALS: BMI 28.9
[2018-03-30 17:48] LABS: Glucose,Whole Blood 115 mg/dL (75-99)
[2018-03-30 20:37] LABS: Glucose,Whole Blood 129 mg/dL (75-99)
[2018-03-30 22:07] VITALS: RESP 16
[2018-03-31] MEDS: MAG HYDROX/AL HYDROX/SIMETH 30 ML CUP PO PRN ×2 (00:03→07:30)
[2018-03-31] MEDS: LORazepam 2 MG/ML INJ IV PRN ×3 (01:56→07:30)
[2018-03-31 06:30] VITALS: BP 163/101; PULSE 85; TEMP 98.7
[2018-03-31 07:24] LABS: Glucose,Whole Blood 99 mg/dL (75-99)
[2018-03-31 07:28] LABS: Anisocytosis Slight; Basophils % (A) 0 %; Eosinophils # (A) 0.1 k/uL (0-0.7); Eosinophils % (A) 2 %; HCT 26.4 % (39.0-53.0); HGB 8.9 gm/dL (13.0-17.5); Lymphocytes # (A) 1.2 k/uL (1.0-4.8); Lymphocytes % (A) 33 %; MCH 32.2 pg (25.0-35.0); MCHC 33.7 g/dL (31.0-37.0); MCV 95.7 fL (80.0-100.0); Macrocytosis Slight; Monocytes # (A) 0.3 k/uL (0-1.0); Monocytes % (A) 8 %; Neutrophils # (A) 2.1 k/uL (1.3-7.7); Neutrophils % (A) 55 %; Platelet Count 253 k/uL (150-450); RBC 2.75 m/uL (4.30-5.90); RDW 16.7 % (11.5-15.5); WBC 3.8 k/uL (3.8-10.6)
[2018-03-31] MEDS: INSULIN ASPART 100 UNIT/ML 1 ML 10 ML VIAL SQ SCH ×2 (07:29→12:54)
[2018-03-31] MEDS: LOSARTAN 50 MG TAB PO SCH (07:29)
[2018-03-31 07:38] LABS: ALT 577 U/L (21-72); AST 171 U/L (17-59); Albumin 2.8 g/dL (3.5-5.0); Alkaline Phosphatase 34 U/L (38-126); Anion Gap 9 mmol/L; Blood Urea Nitrogen 4 mg/dL (9-20); Calcium 8.1 mg/dL (8.4-10.2); Carbon Dioxide 25 mmol/L (22-30); Chloride 104 mmol/L (98-107); Glucose 92 mg/dL (74-99); Magnesium 2.2 mg/dL (1.6-2.3); Phosphorus 2.6 mg/dL (2.5-4.5); Potassium 3.7 mmol/L (3.5-5.1); Sodium 138 mmol/L (137-145); Total Bilirubin 0.4 mg/dL (0.2-1.3); Total Protein 4.8 g/dL (6.3-8.2)
[2018-03-31] MEDS ORDERED: PANTOPRAZOLE 40 MG TABLET PO SCH (09:00)
--- NOTE | 2018-03-31 10:02 | PN ---
PROGRESS NOTE DATE OF SERVICE: March 31, 2018 Patient is a 53-year-old white male with history of heavy alcoholism, admitted to the hospital with acute upper GI bleed. He underwent an upper endoscopy by Dr. Do 3 days ago and was noted to have severe esophagitis and hiatal hernia and large amount of blood in the stomach. The patient in the meantime continues to do well. He did not have any further episodes of nausea, vomiting. He is on a regular diet, tolerating well. He was also noted to have elevated serum transaminases during this hospitalization. Ultrasound of the abdomen showed hepatomegaly. Hepatitis serologies for A, B, and C are pending. PHYSICAL EXAMINATION: He appears comfortable in no apparent distress. Vital signs are stable. Blood pressure 174/90, pulse rate 90, temperature 98.5 HEENT examination unremarkable. Conjunctivae pink. Sclerae anicteric. Oral cavity no lesions. Neck no jugular venous distention or lymph node enlargement. Chest was clear to auscultation. HEART: Regular rate and rhythm. ABDOMEN: Soft. Bowel sounds are positive. No organomegaly. Extremities: No pedal edema. Skin no rashes. NEUROLOGIC: Alert and oriented x3. No focal deficits. LAB: At the time of admission to the hospital: AST was 1605 and today it is 171, ALT peaked at 963 and today it is 577, T bilirubin 0.4, alkaline phosphatase is 34. Hepatitis serologies for A, B, and C are negative. IMPRESSION: 1. Acute upper gastrointestinal bleed secondary to severe esophagitis and hiatal hernia. Presently on Protonix. No further bleeding. Hemoglobin remains stable. 2. Elevated serum transaminases with ALT and AST in the range of 1000, which are gradually improving. Hepatitis serologies for A, B, and C are negative. The patient does have a component of acute alcoholic hepatitis, but it is superimposed with other acute hepatitis possibly medication. In any event serum transaminases are gradually improving. Ultrasound of the abdomen showed hepatomegaly and fatty infiltration. 3. Chronic atrial fibrillation with RVR, which is under control. RECOMMENDATION: 1. Continue with regular diet. 2. Continue Protonix 40 mg twice daily. 3. Repeat LFTs in the morning and if he continues to improve, he can be discharged home with an outpatient follow up in 1-2 weeks. Thank you for this consultation. MMODL / IJN: [id number] /
[2018-03-31 11:14] LABS: Glucose,Whole Blood 149 mg/dL (75-99)
--- NOTE | 2018-03-31 12:03 | P.PN ---
Subjective Progress Note Date: 03/31/18 Principal diagnosis: Alcohol intoxication, suicidal ideation This is a 53-year-old male patient who presented to the hospital secondary to hematemesis with binge alcohol drinking. Patient underwent EGD that did not show any evidence of ulcer, he did have esophagitis and some noted blood clots stomach. Patient has been on Protonix and continues to describe discomfort when he tries to eat. He has not had any bloody bowel movements and his hemoglobin is stable. Patient states he has good stable outpatient plan for his psychiatric needs including a designated counselor, family and work support. Patient denies any suicidal ideations at this time. He denies any chest discomfort or shortness of breath. Objective - Vital Signs Vital signs: Vital Signs Temp 98.7 F 03/31/18 05:40 Pulse 85 03/31/18 05:40 Resp 16 03/31/18 05:40 BP 163/101 03/31/18 05:40 Pulse Ox 100 03/31/18 05:40 Intake & Output 03/30/18 03/31/18 03/31/18 18:59 06:59 18:59 Intake Total 1105 1190 Output Total 3900 700 280 Balance -2795 490 -280 Weight 88.9 kg 86 kg Intake: IV 500 600 0.9 0 600 Potassium Phosphate 10 500 mmol In Sodium Chloride 0 .9% 250 ml @ 125 mls/hr IV Q2H [facility] Rx#:[id number] Intake, IV Titration 125 Amount Potassium Phosphate 10 125 mmol In Sodium Chloride 0 .9% 250 ml @ 125 mls/hr IV Q2H [facility] Rx#:[id number] Oral 480 590 Output: Urine 3900 700 280 Other: Voiding Method Indwelling Catheter Toilet Toilet Urinal Urinal Incontinent Incontinent # Voids 0 6 - Labs CBC & Chem 7: 03/31/18 06:48 03/31/18 06:48 Labs: Abnormal Lab Results - Last 24 Hours (Table) 03/30/18 03/30/18 03/30/18 Range/Units 11:58 17:32 20:35 RBC (4.30-5.90) m/uL Hgb (13.0-17.5) gm/dL Hct (39.0-53.0) % RDW (11.5-15.5) % BUN (9-20) mg/dL Creatinine (0.66-1.25) mg/dL POC Glucose (mg/dL) 119 H 115 H 129 H (75-99) mg/dL Calcium (8.4-10.2) mg/dL AST (17-59) U/L ALT (21-72) U/L Alkaline Phosphatase (38-126) U/L Total Protein (6.3-8.2) g/dL Albumin (3.5-5.0) g/dL 03/31/18 03/31/18 03/31/18 Range/Units 06:48 06:48 11:12 RBC 2.75 L (4.30-5.90) m/uL Hgb 8.9 L (13.0-17.5) gm/dL Hct 26.4 L (39.0-53.0) % RDW 16.7 H (11.5-15.5) % BUN 4 L (9-20) mg/dL Creatinine 0.47 L (0.66-1.25) mg/dL POC Glucose (mg/dL) 149 H (75-99) mg/dL Calcium 8.1 L (8.4-10.2) mg/dL AST 171 H (17-59) U/L ALT 577 H (21-72) U/L Alkaline Phosphatase 34 L (38-126) U/L Total Protein 4.8 L (6.3-8.2) g/dL Albumin 2.8 L (3.5-5.0) g/dL Assessment and Plan Assessment: Acute GI bleed, upper Alcohol intoxication Alcoholic hepatitis Suicidal ideation Plan: Continue with current regimen. The patient is receiving PPI and Maalox but continues to have discomfort. I will add Carafate to his medication regimen. Recheck labs in the morning and continue to follow his liver enzymes and hemoglobin closely.
--- NOTE | 2018-03-31 12:28 | P.PN ---
Subjective Progress Note Date: 03/31/18 Principal diagnosis: GI bleed secondary to severe distal esophagitis with questionable mucosal tear within the distal esophagus, alcoholism, blood loss anemia. 53-year-old male patient is being seen in follow-up in the intensive care unit. The patient was admitted for upper GI bleeding. On today's evaluation, the patient is quite sedated. Overnight he went into delirium tremens and received a total of 60 mg of Ativan throughout the night. He is calm and comfortable and is currently into point restraints. No reported aspiration. He had a congested cough. He was started on empiric antibiotic coverage with IV Zosyn. He had a chest x-ray today that showed no acute abnormalities. In terms of the GI bleeding, the patient had upper GI bleed and this was further investigated by an EGD done yesterday which showed evidence of hiatal hernia and significant esophagitis and questionable mucosal tear that was not actively bleeding. There was no evidence of any portal hypertension or esophageal varices. There was significant amount of old dark blood and blood clots in the stomach and duodenum. The patient is on IV Protonix. The patient's hemoglobin had dropped down to 6.3 and the patient will be receiving 2 units of packed RBCs. Regulation profile is within normal limits. Renal function is also stable. Liver function tests are abnormal with an AST of 713 and an ALT of 343. The platelet count is at 94,000. Slightly tachycardic. Received approximately 5 L of IV fluids yesterday and the neck fluid balance over the past 24 hours has been in the order of 2.4 L positive. The patient subsequently this afternoon went into atrial fibrillation with rapid ventricular response. This was not associated with any hemodynamic instability. The patient was started on Cardizem drip at times becomes an hour for rate control. Echocardiogram is to follow. No chest pain for now. On today's evaluation of 03/29/2018, this patient is much more alert and awake following commands and answering questions. He is oriented to time and place and people. No focal neurological deficits. No hallucinations. No delusions. No suicidal ideation. No agitation. No tremors. The patient was able to tolerate some clear liquid diet. No ongoing episodes of upper GI bleeding. No abdominal distention. Abnormalities in the LFTs were noted and the patient has typical manifestation of alcoholic hepatitis with elevated in and AST and ALT. Nevertheless, there is no evidence of any hepatic encephalopathy and the patient is hemodynamically stable at this point. His hemoglobin is also stable. He received a total of 2 units of packed RBCs yesterday and his hemoglobin is up to 8.5. Renal function remains stable. His cardiac rhythm is sinus. Echo was done and the patient has an ejection fraction of 55-60%. No valvular abnormalities. No edema lower extremities. No other complaints otherwise for now. On 03/30/2018 patient seen again in the intensive care unit. He is awake alert , denies any acute distress, no further hematemesis, no tarry stools. Patient' s blood pressure this morning was noted to be elevated at 170/80, patient has been off vasopressors. His liver enzymes are trending down, hemoglobin is stable at 8.4, patient was transfused with 2 units of packed red blood cells this admission but has not required any blood transfusions in the last 24 hours. He remains in sinus tachycardia, heart rate is better controlled, at 100 -105 BPM. We will restart patient's losartan this morning, patient continues on Protonix IV twice a day. Patient continues on CIWA protocol, he denies any suicidal ideations, he was seen by psychiatry and suicidal precautions have been lifted. He remains stable, denies any dyspnea, denies any chest pain, lung sounds are clear to auscultation this morning, he is afebrile, no leukocytosis. We will discontinue the Zosyn. Increase activity, sit up in the chair, we'll discontinue the Aldana. Patient will transfer out of the unit to regular medical surgical floor today. The patient is seen again today 03/31/2018 in follow-up on the regular medical floor. He is currently resting quite comfortably in bed. No complaints currently. He is maintaining good O2 saturations up to the 100% on room air. He has been afebrile. No tachycardia. No tachypnea. Slightly hypertensive. Current hemoglobin 8.9. No further active bleeding. Objective - Vital Signs Vital signs: Vital Signs Temp 98.7 F 03/31/18 05:40 Pulse 85 03/31/18 05:40 Resp 16 03/31/18 05:40 BP 163/101 03/31/18 05:40 Pulse Ox 100 03/31/18 05:40 Intake & Output 03/30/18 03/31/18 03/31/18 18:59 06:59 18:59 Intake Total 1105 1190 Output Total 3900 700 280 Balance -2795 490 -280 Weight 88.9 kg 86 kg Intake: IV 500 600 0.9 0 600 Potassium Phosphate 10 500 mmol In Sodium Chloride 0 .9% 250 ml @ 125 mls/hr IV Q2H [facility] Rx#:[id number] Intake, IV Titration 125 Amount Potassium Phosphate 10 125 mmol In Sodium Chloride 0 .9% 250 ml @ 125 mls/hr IV Q2H [facility] Rx#:[id number] Oral 480 590 Output: Urine 3900 700 280 Other: Voiding Method Indwelling Catheter Toilet Toilet Urinal Urinal Incontinent Incontinent # Voids 0 6 - Exam Gen. appearance, comfortable awake and alert and there is no focal neurological deficits. Head is atraumatic normocephalic, There was no scleral icterus or corneal arcus. Mucous membranes were moist. Neck was supple and without jugular venous distension, thyromegaly, or carotid bruits. Carotids were easily palpable bilaterally. There was no adenopathy. Lung sounds are clear. No labored breathing. Cardiac exam revealed the PMI to be normally situated and sized. The rhythm was regular and no extrasystoles were noted during several minutes of auscultation. The first and second heart sounds were normal and physiologic splitting of the second heart sound was noted. There were no murmurs, rubs, clicks, or gallops. Abdominal exam revealed normal bowel sounds. The abdomen was soft, non-tender, and without masses, organomegaly, or appreciable enlargement of the abdominal aorta.Examination of the extremities revealed easily palpable radial, femoral and pedal pulses. There was no cyanosis, clubbing or edema. Examination of the skin revealed no evidence of significant rashes, suspicious appearing nevi or other concerning lesions. Neurologically the patient is intact awake and alert and there is no focal neurological deficit at this point. - Labs CBC & Chem 7: 03/31/18 06:48 03/31/18 06:48 Labs: Abnormal Lab Results - Last 24 Hours (Table) 03/30/18 03/30/18 03/31/18 Range/Units 17:32 20:35 06:48 RBC 2.75 L (4.30-5.90) m/uL Hgb 8.9 L (13.0-17.5) gm/dL Hct 26.4 L (39.0-53.0) % RDW 16.7 H (11.5-15.5) % BUN (9-20) mg/dL Creatinine (0.66-1.25) mg/dL POC Glucose (mg/dL) 115 H 129 H (75-99) mg/dL Calcium (8.4-10.2) mg/dL AST (17-59) U/L ALT (21-72) U/L Alkaline Phosphatase (38-126) U/L Total Protein (6.3-8.2) g/dL Albumin (3.5-5.0) g/dL 03/31/18 03/31/18 Range/Units 06:48 11:12 RBC (4.30-5.90) m/uL Hgb (13.0-17.5) gm/dL Hct (39.0-53.0) % RDW (11.5-15.5) % BUN 4 L (9-20) mg/dL Creatinine 0.47 L (0.66-1.25) mg/dL POC Glucose (mg/dL) 149 H (75-99) mg/dL Calcium 8.1 L (8.4-10.2) mg/dL AST 171 H (17-59) U/L ALT 577 H (21-72) U/L Alkaline Phosphatase 34 L (38-126) U/L Total Protein 4.8 L (6.3-8.2) g/dL Albumin 2.8 L (3.5-5.0) g/dL Assessment and Plan Assessment: Assessment 1 acute upper GI bleed, secondary to severe distal esophagitis without evidence of an acute bleed. Is a questionable mucosal tear within the distal esophagus. The duodenum and the stomach are within normal limits. The patient is stable and the patient is not having any further episodes of bleeding for now. His hemoglobin dropped as low as 6.3 and the patient got transfused with packed RBCs. He is currently on IV Protonix. He has been tolerating a low fiber diet , with no recurrence of GI bleeding, 2 alcoholism, with acute alcohol intoxication at the time of admission which has recovered and the patient is back to normal mentation. 3 blood loss anemia secondary to upper GI bleeding, hemoglobin is up to 8.9 4 alcoholic hepatitis, with elevation in AST and ALT. Improving. 5 chronic anxiety/depression 6 sinus tachycardia secondary to above, improved 7 questionable suicidal ideation/depression, psychiatric, nonsuicidal based on psychiatric evaluation 8 alcoholic thrombocytopenia 9 sinus tachycardia secondary to intravascular volume depletion secondary to GI bleeding. 10 new-onset atrial fibrillation with rapid ventricular response, currently on Cardizem drip for rate control. The patient is converted back to normal sinus rhythm and the echo of the heart came back within normal limits. Plan The patient was seen and evaluated by Dr. Garcia. He is stable from the pulmonary and critical care standpoint. We'll see the patient on as-needed basis. I, the cosigning physician, performed a history & physical examination of the patient. Lungs sounds are clear. Maintaining good O2 saturations in the 90s on room air. I discussed the assessment and plan of care with my nurse practitioner, Jess Cordova. I attest to the above note as dictated by her.
[2018-03-31] MEDS ORDERED: SUCRALFATE 1 GM TAB PO SCH (12:30)
[2018-03-31 12:37] LABS: Glucose,Whole Blood 129 mg/dL (75-99)
--- NOTE | 2018-03-31 12:48 | P.DS ---
Providers Date of admission: 03/27/18 09:13 Attending physician: Wally Steward Consults: 03/26/18 19:41 Consult Physician Urgent Consulting Provider: Dillon Blum Consult Reason/Comments: Suicidal ideations Do you want consulting provider notified?: Yes 03/27/18 07:10 Consult Physician Routine Consulting Provider: Huma Bautista Consult Reason/Comments: gi bleed, etoh Do you want consulting provider notified?: Yes 03/27/18 07:11 Consult Physician Routine Consulting Provider: Frank Alves Consult Reason/Comments: icu management Do you want consulting provider notified?: Yes Primary care physician: Wally Steward Hospital Course: Please see progress note dated for today. The patient was reevaluated and he is ready for discharge home. He will follow-up with his primary care physician and resume his psychiatric care. Patient has no evidence of delirium tremens. He is awake alert and oriented. Ambulating without any difficulties. Patient Condition at Discharge: Stable Plan - Discharge Summary New Discharge Prescriptions: New Mag Hydrox/Al Hydrox/Simeth [Maalox] 20 ml PO QID PRN #30 cup PRN Reason: Heartburn Omeprazole [PriLOSEC] 20 mg PO AC-BID #60 cap Thiamine [Vitamin B-1] 100 mg PO BID@1200,1700 #30 tab Metoprolol Tartrate 25 mg PO BID #60 tab Continue Losartan Potassium 100 mg PO DAILY Discontinued traZODone HCL 450 mg PO HS Discharge Medication List Losartan Potassium 100 mg PO DAILY 08/06/15 [History] Mag Hydrox/Al Hydrox/Simeth [Maalox] 20 ml PO QID PRN #30 cup 03/31/18 [Rx] Metoprolol Tartrate 25 mg PO BID #60 tab 03/31/18 [Rx] Omeprazole [PriLOSEC] 20 mg PO AC-BID #60 cap 03/31/18 [Rx] Thiamine [Vitamin B-1] 100 mg PO BID@1200,1700 #30 tab 03/31/18 [Rx] Follow up Appointment(s)/Referral(s): Wally Steward MD [Primary Care Provider] - 3 Days Discharge Disposition: HOME SELF-CARE
[2018-03-31] MEDS: THIAMINE 100 MG TAB PO SCH (13:06)
== END 2018-03-31 14:22 | disposition home or self-care (01) | DRG 391 ==
LOC: EC 18:21 → 4MS4W 19:38 → 6ICU 03-27 08:08 → OBSVTOIN 03-27 09:13 → 5MS5E 03-30 15:23
PROVIDERS: ADMIT Family Medicine; ATTEND Family Medicine
PROC: 0DJ08ZZ Inspection of Upper Intestinal Tract, Via Natural or Artificial Opening Endoscopic (ICD-10-PCS; principal; 2018-03-27 08:05)
PROC: 30233N1 Transfusion of Nonautologous Red Blood Cells into Peripheral Vein, Percutaneous Approach (ICD-10-PCS; 2018-03-28)
DX: K20.9 Esophagitis, unspecified (principal); K22.6 Gastro-esophageal laceration-hemorrhage syndrome; D62 Acute posthemorrhagic anemia; F10.231 Alcohol dependence with withdrawal delirium; R45.851 Suicidal ideations; D69.6 Thrombocytopenia, unspecified; E78.5 Hyperlipidemia, unspecified; E86.9 Volume depletion, unspecified; F10.229 Alcohol dependence with intoxication, unspecified; F32.9 Major depressive disorder, single episode, unspecified; F41.9 Anxiety disorder, unspecified; I10 Essential (primary) hypertension; I48.2 Chronic atrial fibrillation; K22.8 Other specified diseases of esophagus; K29.70 Gastritis, unspecified, without bleeding; K44.9 Diaphragmatic hernia without obstruction or gangrene; K70.10 Alcoholic hepatitis without ascites; Z79.899 Other long term (current) drug therapy; Z81.8 Family history of other mental and behavioral disorders; Z87.19 Personal history of other diseases of the digestive system; Z87.891 Personal history of nicotine dependence; Y90.8 Blood alcohol level of 240 mg/100 ml or more
CPT/HCPCS: 36415; 43235; 71045; 76705; 80048; 80053; 80074; 80306; 80320; 82075; 82140; 82150; 82330; 83036; 83690; 83735; 84100; 84132; 84443; 85025; 85027; 85610; 86850; 86900; 86901; 86920; 93306; 96365; 96366; 96372; 96375; 96376; 99285

== ENCOUNTER 2020-01-06 17:08 | Inpatient (IN) | payer OTHER ==
[2020-01-06] MEDS ORDERED: OCTREOTIDE 500 MCG in SODIUM CHLORIDE 0.9% 250 ML IV STA (17:26)
[2020-01-06] MEDS ORDERED: OCTREOTIDE 100 MCG/ML INJ IVP STA (17:26)
[2020-01-06] MEDS ORDERED: PANTOPRAZOLE 40 MG/10 ML VIAL IVP STA (17:26)
[2020-01-06] MEDS ORDERED: SODIUM CHLORIDE 0.9% 1,000 ML IV STA ×3 (17:26→18:31)
[2020-01-06] MEDS ORDERED: METOCLOPRAMIDE 5 MG/ML 2 ML VIAL IVP STA (17:28)
[2020-01-06 18:01] LABS: Basophils % (A) 0 %; Eosinophils % (A) 0 %; HCT 45.5 % (39.0-53.0); HGB 15.3 gm/dL (13.0-17.5); Lymphocytes # (A) 1.9 k/uL (1.0-4.8); Lymphocytes % (A) 15 %; MCH 28.9 pg (25.0-35.0); MCHC 33.7 g/dL (31.0-37.0); MCV 85.8 fL (80.0-100.0); Mean Platelet Volume 7.9; Monocytes # (A) 0.8 k/uL (0-1.0); Monocytes % (A) 6 %; Neutrophils # (A) 10.3 k/uL (1.3-7.7); Neutrophils % (A) 78 %; Platelet Count 398 k/uL (150-450); RDW 14.1 % (11.5-15.5); WBC 13.1 k/uL (3.8-10.6)
[2020-01-06 18:16] LABS: ALT 37 U/L (4-49); AST 100 U/L (17-59); African American GFR (CKD) >90 (>60 ml/min/1.73 sqM); Albumin 4.5 g/dL (3.5-5.0); Alkaline Phosphatase 55 U/L (38-126); Anion Gap 19 mmol/L; Blood Urea Nitrogen 16 mg/dL (9-20); Calcium 8.3 mg/dL (8.4-10.2); Carbon Dioxide 23 mmol/L (22-30); Chloride 93 mmol/L (98-107); Glucose 100 mg/dL (74-99); Magnesium 2.7 mg/dL (1.6-2.3); Non-African American GFR(CKD) >90 (>60 ml/min/1.73 sqM); Sodium 135 mmol/L (137-145); Total Bilirubin 1.2 mg/dL (0.2-1.3); Total Protein 7.6 g/dL (6.3-8.2)
[2020-01-06 18:27] LABS: Potassium 5.1 mmol/L (3.5-5.1)
[2020-01-06 18:28] LABS: Alcohol 364 mg/dL; INR 0.9 (<1.2); Prothrombin Time 9.9 sec (9.0-12.0)
--- NOTE | 2020-01-06 18:55 | ED ---
GI Bleed HPI - General Chief complaint: GI Bleed Stated complaint: ETOH/GI Bleed Time Seen by Provider: 01/06/20 17:13 Source: EMS Mode of arrival: EMS Limitations: altered mental status - History of Present Illness Initial comments: This 54-year-old white male presents via EMS for some hematemesis. He presents from home and apparently has been drinking heavily. He apparently does have a history of alcohol abuse but was sober for 2 years up until last week. The patient is severely intoxicated and will not give any relevant history. He apparently does have a history of previous esophageal varices from 2 years ago. He is unable to give me any history in regard to how much she drinks per day, or how much blood he vomited up. History is extremely limited due to the degree of intoxication. He does present with hiccups. - Related Data Home Medications Medication Instructions Recorded Confirmed Losartan Potassium 100 mg PO DAILY 08/06/15 03/27/18 Previous Rx's Medication Instructions Recorded Mag Hydrox/Al Hydrox/Simeth 20 ml PO QID PRN #30 cup 03/31/18 [Maalox] Metoprolol Tartrate 25 mg PO BID #60 tab 03/31/18 Omeprazole [PriLOSEC] 20 mg PO AC-BID #60 cap 03/31/18 Thiamine [Vitamin B-1] 100 mg PO BID@1200,1700 #30 tab 03/31/18 Allergies Allergy/AdvReac Type Severity Reaction Status Date / Time No Known Allergies Allergy Verified 03/27/18 10:17 Review of Systems ROS Statement: Those systems with pertinent positive or pertinent negative responses have been documented in the HPI. ROS Other: All systems not noted in ROS Statement are negative. Past Medical History Past Medical History: Hypertension, Pneumonia Additional Past Medical History / Comment(s): Alcoholism, previous history of upper GI bleed/esophagitis, anxiety, depression , hyperlipidemia History of Any Multi-Drug Resistant Organisms: None Reported Past Surgical History: Breast Surgery Additional Past Surgical History / Comment(s): fatty mass removed from breast right 2005, wisdom teeth removed Past Anesthesia/Blood Transfusion Reactions: No Reported Reaction Past Psychological History: Anxiety, Depression Smoking Status: Former smoker Past Alcohol Use History: Abuse, Daily, Heavy Past Drug Use History: None Reported - Past Family History Mother Family Medical History: No Reported History Father Additional Family Medical History / Comment(s): heavy etoh and depression General Exam - General Exam Comments Initial Comments: GENERAL: The patient is well nourished and well hydrated. VITAL SIGNS: Heart rate, blood pressure, respiratory rate reviewed as recorded in nurse's notes. EYES: Pupils are round and reactive. Extraocular movements are intact. No conjunctival / lid redness or swelling. ENT: No external evidence of injury, swelling, or ecchymosis. Airway is patent. Throat is clear. NECK: Nontender. No swelling or evidence of injury. No subcutaneous emphysema. Trachea is midline. No thyroid mass. HEART: Regular rate and rhythm. Good peripheral pulses. LUNGS/CHEST: Breath sounds clear and equal bilaterally. No rales, rhonchi, or wheezes. No ecchymosis, subcutaneous emphysema, or tenderness. ABDOMEN: Abdomen soft without tenderness. No palpable masses or organomegaly. No peritoneal signs. No abdominal wall swelling or ecchymosis. EXTREMITIES: No extremity tenderness. Normal muscle tone and function. No thoracolumbar tenderness. NEUROLOGIC: Slurred speech noted which is essentially unintelligible. Not following commands well, appears intoxicated, strong order of alcohol present. SKIN: No abrasions or ecchymosis is noted. No induration or masses noted. PSYCHIATRIC: Alert but appears intoxicated. Limitations: altered mental status Course Vital Signs 01/06/20 01/06/20 17:15 18:19 Temperature 97.9 F Pulse Rate 110 H Respiratory 16 Rate Blood Pressure 153/93 125/84 O2 Sat by Pulse 98 Oximetry Procedures - Nitro Protocol (Time Out) Nurse: Inna Rose Medical Decision Making - Medical Decision Making The patient was seen and examined. All diagnostics were reviewed. An IV is established. He does receive IV fluids and Protonix intravenously. He also receives some octreotide bolus and drip. The patient has a significantly elevated alcohol level at 354. His lactic acid is also elevated. He does have the pickups and therefore some Reglan is also started. He also receives some Zofran intravenously and route to the hospital. The patient is appearing stable on recheck. It is felt as though he would require admission to the hospital for further treatment. Case is discussed with Dr. Steward and he would like gastroenterology to consult. - Lab Data Result diagrams: 01/06/20 17:14 01/06/20 17:14 Lab Results 01/06/20 01/06/20 01/06/20 Range/Units 17:14 17:14 17:14 WBC 13.1 H (3.8-10.6) k/uL RBC 5.30 (4.30-5.90) m/uL Hgb 15.3 (13.0-17.5) gm/dL Hct 45.5 (39.0-53.0) % MCV 85.8 (80.0-100.0) fL MCH 28.9 (25.0-35.0) pg MCHC 33.7 (31.0-37.0) g/dL RDW 14.1 (11.5-15.5) % Plt Count 398 (150-450) k/uL Neutrophils % 78 % Lymphocytes % 15 % Monocytes % 6 % Eosinophils % 0 % Basophils % 0 % Neutrophils # 10.3 H (1.3-7.7) k/uL Lymphocytes # 1.9 (1.0-4.8) k/uL Monocytes # 0.8 (0-1.0) k/uL Eosinophils # 0.0 (0-0.7) k/uL Basophils # 0.0 (0-0.2) k/uL PT 9.9 (9.0-12.0) sec INR 0.9 (<1.2) APTT 23.0 (22.0-30.0) sec Sodium 135 L (137-145) mmol/L Potassium 5.1 (3.5-5.1) mmol/L Chloride 93 L (98-107) mmol/L Carbon Dioxide 23 (22-30) mmol/L Anion Gap 19 mmol/L BUN 16 (9-20) mg/dL Creatinine 0.76 (0.66-1.25) mg/dL Est GFR (CKD-EPI)AfAm >90 (>60 ml/min/1.73 sqM) Est GFR (CKD-EPI)NonAf >90 (>60 ml/min/1.73 sqM) Glucose 100 H (74-99) mg/dL Plasma Lactic Acid Sukh (0.7-2.0) mmol/L Calcium 8.3 L (8.4-10.2) mg/dL Magnesium 2.7 H (1.6-2.3) mg/dL Total Bilirubin 1.2 (0.2-1.3) mg/dL AST 100 H (17-59) U/L ALT 37 (4-49) U/L Alkaline Phosphatase 55 (38-126) U/L Troponin I (0.000-0.034) ng/mL Total Protein 7.6 (6.3-8.2) g/dL Albumin 4.5 (3.5-5.0) g/dL Serum Alcohol 364 H* mg/dL Blood Type Blood Type Recheck Bld Type Recheck Status Antibody Screen Spec Expiration Date 01/06/20 01/06/20 01/06/20 Range/Units 17:14 17:14 17:14 WBC (3.8-10.6) k/uL RBC (4.30-5.90) m/uL Hgb (13.0-17.5) gm/dL Hct (39.0-53.0) % MCV (80.0-100.0) fL MCH (25.0-35.0) pg MCHC (31.0-37.0) g/dL RDW (11.5-15.5) % Plt Count (150-450) k/uL Neutrophils % % Lymphocytes % % Monocytes % % Eosinophils % % Basophils % % Neutrophils # (1.3-7.7) k/uL Lymphocytes # (1.0-4.8) k/uL Monocytes # (0-1.0) k/uL Eosinophils # (0-0.7) k/uL Basophils # (0-0.2) k/uL PT (9.0-12.0) sec INR (<1.2) APTT (22.0-30.0) sec Sodium (137-145) mmol/L Potassium (3.5-5.1) mmol/L Chloride (98-107) mmol/L Carbon Dioxide (22-30) mmol/L Anion Gap mmol/L BUN (9-20) mg/dL Creatinine (0.66-1.25) mg/dL Est GFR (CKD-EPI)AfAm (>60 ml/min/1.73 sqM) Est GFR (CKD-EPI)NonAf (>60 ml/min/1.73 sqM) Glucose (74-99) mg/dL Plasma Lactic Acid Sukh 4.5 H* (0.7-2.0) mmol/L Calcium (8.4-10.2) mg/dL Magnesium (1.6-2.3) mg/dL Total Bilirubin (0.2-1.3) mg/dL AST (17-59) U/L ALT (4-49) U/L Alkaline Phosphatase (38-126) U/L Troponin I <0.012 (0.000-0.034) ng/mL Total Protein (6.3-8.2) g/dL Albumin (3.5-5.0) g/dL Serum Alcohol mg/dL Blood Type A Positive Blood Type Recheck A Pos Bld Type Recheck Status No Antibody Screen NEGATIVE Spec Expiration Date 01/09/2020 - 2313 Disposition Clinical Impression: Alcohol intoxication, Upper GI bleed, Alcohol abuse, Dehydration, Lactic acidosis, Esophageal varices Disposition: ADMITTED IP TO THIS HOSP Condition: Fair Is patient prescribed a controlled substance at d/c from ED?: No Time of Disposition: 19:02 Decision Date: 01/06/20 Decision Time: 19:02
[2020-01-06] MEDS ORDERED: NALOXONE 0.4 MG/ML 1 ML VIAL IV PRN (19:05)
[2020-01-06] MEDS ORDERED: THIAMINE 100 MG/ML 2 ML VIAL IM STA (19:08)
[2020-01-06] MEDS ORDERED: LORazepam 2 MG/ML INJ IV PRN ×2 (19:08)
[2020-01-06] MEDS: THIAMINE 100 MG TAB PO SCH (19:12)
[2020-01-06] MEDS: PANTOPRAZOLE 40 MG/10 ML VIAL IV SCH (21:24)
[2020-01-06] MEDS: LORazepam 2 MG/ML INJ IV PRN (22:36)
[2020-01-07 03:53] LABS: Basophils % (A) 0 %; Eosinophils % (A) 0 %; HCT 36.2 % (39.0-53.0); Lymphocytes # (A) 1.3 k/uL (1.0-4.8); Lymphocytes % (A) 14 %; MCH 29.3 pg (25.0-35.0); MCHC 33.8 g/dL (31.0-37.0); MCV 86.8 fL (80.0-100.0); Mean Platelet Volume 7.7; Monocytes # (A) 0.6 k/uL (0-1.0); Monocytes % (A) 7 %; Neutrophils % (A) 77 %; Platelet Count 272 k/uL (150-450); RBC 4.17 m/uL (4.30-5.90); RDW 13.9 % (11.5-15.5)
[2020-01-07 04:05] LABS: African American GFR (CKD) >90 (>60 ml/min/1.73 sqM); Anion Gap 12 mmol/L; Blood Urea Nitrogen 15 mg/dL (9-20); Calcium 7.5 mg/dL (8.4-10.2); Carbon Dioxide 25 mmol/L (22-30); Chloride 97 mmol/L (98-107); Glucose 77 mg/dL (74-99); Non-African American GFR(CKD) >90 (>60 ml/min/1.73 sqM); Potassium 3.9 mmol/L (3.5-5.1); Sodium 134 mmol/L (137-145)
[2020-01-07 04:46] LABS: HGB 12.2 gm/dL (13.0-17.5)
[2020-01-07] MEDS: LORazepam 2 MG/ML INJ IV PRN ×8 (05:03→23:57)
--- NOTE | 2020-01-07 07:16 | P.HPIM ---
History of Present Illness H&P Date: 01/07/20 Chief Complaint: Acute alcohol intoxication This is history of physical 54-year-old white male with known history of recurrent alcoholism. He he has had difficulty at work and was slowly working to obtain his [employer] license back. However, he had an episode of binge drinki ng for the last 24-48 hours. He was appropriately evaluated and because of his hematemesis, he is admitted for appropriate treatment. GIs now consulted. No fever or chills. He is starting to come back to lucidity and does answer questions appropriately. I do remember if there is a history of delirium tremens in the past. Review of Systems Constitutional: Reports fatigue, Denies chronic pain Ears, nose, mouth and throat: Denies headache, Denies sore throat Cardiovascular: Denies chest pain, Denies shortness of breath Respiratory: Denies cough Gastrointestinal: Reports hematemesis, Reports nausea, Reports vomiting, Denies abdominal pain, Denies diarrhea Musculoskeletal: Denies myalgias Past Medical History Past Medical History: Hypertension, Pneumonia Additional Past Medical History / Comment(s): Alcoholism, previous history of upper GI bleed/esophagitis, anxiety, depression , hyperlipidemia History of Any Multi-Drug Resistant Organisms: None Reported Past Surgical History: Breast Surgery Additional Past Surgical History / Comment(s): fatty mass removed from breast right 2005, wisdom teeth removed Past Anesthesia/Blood Transfusion Reactions: No Reported Reaction Past Psychological History: Anxiety, Depression Smoking Status: Never smoker Past Alcohol Use History: Abuse, Daily, Heavy Additional Past Alcohol Use History / Comment(s): The patient binge drinks alcohol and he drank a fifth of vodka today and every day for the past few weeks. Past Drug Use History: None Reported - Past Family History Mother Family Medical History: No Reported History Father Additional Family Medical History / Comment(s): heavy etoh and depression Medications and Allergies Home Medications Medication Instructions Recorded Confirmed Type Losartan Potassium 100 mg PO DAILY 08/06/15 01/06/20 History traZODone HCL 450 mg PO HS 01/06/20 01/06/20 History Allergies Allergy/AdvReac Type Severity Reaction Status Date / Time No Known Allergies Allergy Verified 01/06/20 19:21 Physical Exam Vitals: Vital Signs Temp Pulse Pulse Resp BP BP Pulse Ox 01/07/20 01:00 99.2 F 95 117/66 93 L 01/06/20 21:25 98.6 F 98 18 119/74 96 01/06/20 20:30 98.2 F 103 H 18 132/72 95 01/06/20 19:37 109 H 18 138/78 96 01/06/20 18:57 124 H 16 129/77 92 L 01/06/20 18:19 125/84 01/06/20 17:15 97.9 F 110 H 16 153/93 98 Intake and Output 01/06/20 01/07/20 01/07/20 22:59 06:59 14:59 Output Total 150 Balance -150 Output: Emesis 150 Other: # Voids 1 Weight 95.254 kg - Constitutional General appearance: no acute distress - EENT Eyes: EOMI - Neck Neck: no lymphadenopathy - Respiratory Respiratory: bilateral: CTA - Cardiovascular Rhythm: regular Heart sounds: normal: S1, S2 Abnormal Heart Sounds: no S3 Gallop - Gastrointestinal General gastrointestinal: soft - Integumentary Integumentary: no cellulitis - Neurologic Neurologic: CNII-XII intact Results CBC & Chem 7: 01/07/20 03:38 01/07/20 03:38 Labs: Abnormal Lab Results - Last 24 Hours (Table) 01/06/20 01/06/20 01/06/20 Range/Units 17:14 17:14 17:14 WBC 13.1 H (3.8-10.6) k/uL RBC (4.30-5.90) m/uL Hgb (13.0-17.5) gm/dL Hct (39.0-53.0) % Neutrophils # 10.3 H (1.3-7.7) k/uL Sodium 135 L (137-145) mmol/L Chloride 93 L (98-107) mmol/L Glucose 100 H (74-99) mg/dL Plasma Lactic Acid Sukh 4.5 H* (0.7-2.0) mmol/L Calcium 8.3 L (8.4-10.2) mg/dL Magnesium 2.7 H (1.6-2.3) mg/dL AST 100 H (17-59) U/L Serum Alcohol 364 H* mg/dL 01/06/20 01/06/20 01/07/20 Range/Units 19:45 23:42 03:38 WBC (3.8-10.6) k/uL RBC 4.17 L (4.30-5.90) m/uL Hgb 12.2 L D (13.0-17.5) gm/dL Hct 36.2 L (39.0-53.0) % Neutrophils # (1.3-7.7) k/uL Sodium (137-145) mmol/L Chloride (98-107) mmol/L Glucose (74-99) mg/dL Plasma Lactic Acid Sukh 3.7 H* 3.3 H* (0.7-2.0) mmol/L Calcium (8.4-10.2) mg/dL Magnesium (1.6-2.3) mg/dL AST (17-59) U/L Serum Alcohol mg/dL 01/07/20 01/07/20 Range/Units 03:38 03:38 WBC (3.8-10.6) k/uL RBC (4.30-5.90) m/uL Hgb (13.0-17.5) gm/dL Hct (39.0-53.0) % Neutrophils # (1.3-7.7) k/uL Sodium 134 L (137-145) mmol/L Chloride 97 L (98-107) mmol/L Glucose (74-99) mg/dL Plasma Lactic Acid Sukh 2.9 H* (0.7-2.0) mmol/L Calcium 7.5 L (8.4-10.2) mg/dL Magnesium (1.6-2.3) mg/dL AST (17-59) U/L Serum Alcohol mg/dL Thrombosis Risk Factor Assmnt - Choose All That Apply Any of the Below Risk Factors Present?: Yes Each Factor Represents 1 point: Age 41-60 years, Obesity (BMI >25) Other Risk Factors: No Other congenital or acquired thrombophilia - If yes, enter type in comment: No Thrombosis Risk Factor Assessment Total Risk Factor Score: 2 Thrombosis Risk Factor Assessment Level: Low Risk Assessment and Plan (1) Alcohol abuse Current Visit: Yes Status: Acute Code(s): F10.10 - ALCOHOL ABUSE, UNCOMPLICATED SNOMED Code(s): 37705868 (2) Alcohol intoxication Current Visit: Yes Status: Acute Code(s): F10.129 - ALCOHOL ABUSE WITH INTOXICATION, UNSPECIFIED SNOMED Code(s): 45283396 (3) Esophageal varices Current Visit: Yes Status: Acute Code(s): I85.00 - ESOPHAGEAL VARICES WITHOUT BLEEDING SNOMED Code(s): 89296570 (4) Upper GI bleed Current Visit: Yes Status: Acute Code(s): K92.2 - GASTROINTESTINAL HEMORRHAGE, UNSPECIFIED SNOMED Code(s): 60338531 Plan: Approach with standard appropriate alcohol withdrawal protocols. Better B-12, thiamine and folate supplementation as needed. Check CBC and CMP in a.m. Because of his hematemesis, consult GI. Question need for EGD if he continues to have hematemesis. Prognosis is guarded time. Restart home medications when nothing by mouth was resolved.
[2020-01-07] MEDS: THIAMINE 100 MG TAB PO SCH ×2 (09:46→17:24)
[2020-01-07] MEDS: MULTIVITAMINS, THERA 1 EACH TAB PO SCH (09:46)
[2020-01-07] MEDS: PANTOPRAZOLE 40 MG/10 ML VIAL IV SCH ×2 (09:46→20:28)
[2020-01-07] MEDS: LOSARTAN 50 MG TAB PO SCH (09:46)
[2020-01-07] MEDS: ONDANSETRON 4 MG/2 ML VIAL IVP PRN (11:02)
--- NOTE | 2020-01-08 00:13 | CONS ---
CONSULTATION DATE OF SERVICE: 01/07/2020 REQUESTING PHYSICIAN: Dr. Steward. REASON FOR CONSULTATION: Hematemesis. The patient is a 54-year-old pleasant white male who came into the emergency room after having several episodes of hematemesis that started yesterday. He has history of heavy alcoholism and he was drinking for the last two days. He had about 3 or 4 episodes of hematemesis, came into the emergency room and subsequently admitted to the hospital for further evaluation. Hemoglobin is stable at 12.8 g/dL. At admission it was 15 g/dL. Had a similar episode two years ago and had an upper endoscopy which revealed severe esophagitis. PAST MEDICAL HISTORY: Alcohol abuse, hypertension, anxiety, depression and gastroesophageal reflux disease. PAST SURGICAL HISTORY: Right breast fatty mass removed and EGD in the past. SOCIAL HISTORY: Heavy alcohol use. No smoking. MEDICATIONS AT HOME: Losartan and Trazodone. ALLERGIES: None. FAMILY HISTORY: Mother, unremarkable. Father, alcohol use and depression. SOCIAL HISTORY: Heavy alcohol use. REVIEW OF SYSTEMS: CARDIOPULMONARY: No chest pain, shortness of breath. : No dysuria or hematuria. MUSCULOSKELETAL: Unremarkable. SKIN: Unremarkable. ENDOCRINE: Unremarkable. PSYCHIATRY: Unremarkable. NEUROLOGY: Unremarkable. ENT/VISION: Unremarkable. CONSTITUTIONAL: No weight loss. No fever, chills. PHYSICAL EXAMINATION: Appears comfortable, no apparent distress. Vital signs are stable. Blood pressure is a 124/72, pulse rate 87, temperature 98.8. HEENT examination unremarkable. Conjunctivae pink. Sclerae anicteric. Oral cavity, no lesions. NECK: No JVD or lymph node enlargement. CHEST: Clear to auscultation. HEART: Regular rate and rhythm. ABDOMEN: Soft. Mild tenderness in the epigastric area. Bowel sounds are positive. No organomegaly. EXTREMITIES: No pedal edema. SKIN: No rashes. NEURO: He is alert and oriented x3. No focal deficits. LABS: WBC 9, hemoglobin 12.2, platelets normal. Basic metabolic panel is within normal limits. Plasma lactic acid was 3.3, today it was 1.2. ALT and AST, T-bilirubin, alkaline phosphatase are all within normal limits except for AST of 100. Serum alcohol level was 364. IMPRESSION: 1. Acute alcoholic intoxication, gradually improving. 2. Upper gastrointestinal bleed. The patient had several episodes of hematemesis. Hemoglobin dropped from 15 to 12.2 g/dL. He is currently hemodynamically stable. He did not have any episodes of upper gastrointestinal bleed since being in the hospital, most likely related to severe esophagitis, but cannot rule out peptic ulcer disease or esophageal varices. RECOMMENDATIONS: 1. Protonix 40 mg q.12 hours. 2. Clear liquid diet. 3. We will proceed with an upper endoscopy tomorrow. Discussed with him the risks, benefits and complications of the procedure and he is agreeable to it. Thank you for this consultation. MMODL / IJN: [id number] /
[2020-01-08] MEDS: MULTIVITAMINS, THERA 1 EACH TAB PO SCH (07:07)
[2020-01-08] MEDS: THIAMINE 100 MG TAB PO SCH ×2 (07:08→17:31)
[2020-01-08 07:19] LABS: HCT 35.6 % (39.0-53.0); HGB 11.6 gm/dL (13.0-17.5); MCH 28.7 pg (25.0-35.0); MCHC 32.6 g/dL (31.0-37.0); MCV 88.1 fL (80.0-100.0); Mean Platelet Volume 7.5; Platelet Count 235 k/uL (150-450); RBC 4.04 m/uL (4.30-5.90); RDW 13.9 % (11.5-15.5); WBC 7.5 k/uL (3.8-10.6)
[2020-01-08] MEDS: LOSARTAN 50 MG TAB PO SCH (07:25)
[2020-01-08] MEDS: ONDANSETRON 4 MG/2 ML VIAL IVP PRN (07:25)
[2020-01-08] MEDS: PANTOPRAZOLE 40 MG/10 ML VIAL IV SCH ×2 (07:25→19:51)
[2020-01-08 07:27] LABS: ALT 34 U/L (4-49); AST 56 U/L (17-59); African American GFR (CKD) >90 (>60 ml/min/1.73 sqM); Albumin 3.1 g/dL (3.5-5.0); Alkaline Phosphatase 41 U/L (38-126); Anion Gap 5 mmol/L; Blood Urea Nitrogen 9 mg/dL (9-20); Calcium 8.3 mg/dL (8.4-10.2); Carbon Dioxide 31 mmol/L (22-30); Chloride 97 mmol/L (98-107); Glucose 92 mg/dL (74-99); Non-African American GFR(CKD) >90 (>60 ml/min/1.73 sqM); Potassium 3.9 mmol/L (3.5-5.1); Sodium 133 mmol/L (137-145); Total Bilirubin 0.9 mg/dL (0.2-1.3); Total Protein 5.4 g/dL (6.3-8.2)
[2020-01-08] MEDS: LORazepam 2 MG/ML INJ IV PRN ×3 (10:46→16:19)
[2020-01-08] MEDS ORDERED: PROPOFOL 10 MG/ML 20 ML VIAL IV ONE (13:14)
[2020-01-08] MEDS ORDERED: LIDOCAINE 1% INJ 10MG/ML (20 ML MDV) ONE (13:14)
[2020-01-08] MEDS ORDERED: IV FLUID CONTINUATION 1,000 ML IV ONE (13:18)
--- NOTE | 2020-01-08 13:28 | P.PCN ---
Date of Procedure: 01/08/20 Procedure(s) Performed: BRIEF HISTORY: Patient is a 54-year-old, pleasant, white male with history of heavy alcoholism admitted to the hospital with hematemesis.. PROCEDURE PERFORMED: Esophagogastroduodenoscopy with biopsy. PREOPERATIVE DIAGNOSIS: UGI bleed. IV sedation per anesthesia. PROCEDURE: After informed consent was obtained, the patient was brought into the endoscopy unit. IV sedation was administered by Anesthesia under continuous monitoring. Initially the Olympus GIF-140 video endoscope was inserted into the mouth. Esophagus intubated without any difficulty. It was gradually advanced into the stomach and duodenum and carefully examined. The bulb and the second part of the duodenum appeared normal. The scope at this time was withdrawn to the stomach, adequately insufflated with air, and upon careful examination, mucosa of the antrum, body, cardia and the fundus appeared normal. The scope was then withdrawn into the esophagus. The GE junction was located at 39 cm from the incisors. There was a 2 cm ulceration noted at the GE junction which was biopsied. There was a severe ulcerated esophagitis extending from 25-40 cm from the incisors consistent with severe reflux esophagitis. Also there was a small segment of Landa's esophagus extending from 35-35 cm from the incisors and multiple biopsies were done from this area. Proximal cervical esophagus appeared normal and the patient tolerated the procedure well. IMPRESSION: 1. Severe ulcerative esophagitis extending from 30-40 cm from the incisors consistent with severe reflux esophagitis. 2. Long segment Landa's esophagus extending from 25-35 cm from the incisors status post multiple biopsies. 3. 2 cm clean-based GE junction ulcer status post biopsy RECOMMENDATIONS: The findings of this examination were discussed with the patient. He will continue with Protonix 40 mg twice daily and remain abstinent from alcohol. Start him on a full liquid diet and advance as tolerated. Repeat CBC in the morning..
--- NOTE | 2020-01-09 08:39 | P.DS ---
Providers Date of admission: 01/06/20 19:03 Attending physician: Wally Steward Consults: 01/06/20 19:06 Consult Physician Urgent Consulting Provider: Huma Bautista Consult Reason/Comments: gi bleed, hx varices Do you want consulting provider notified?: Yes Primary care physician: Wally Steward - Discharge Diagnosis(es) (1) Alcohol abuse Current Visit: Yes Status: Acute (2) Alcohol intoxication Current Visit: Yes Status: Acute (3) Esophageal varices Current Visit: Yes Status: Acute (4) Upper GI bleed Current Visit: Yes Status: Acute Hospital Course: This is a discharge summary 54-year-old white male essentially admitted for alcoholic binge. GI bleed was noted. He ended up having EGD which showed reflux esophagitis. The patient is not tolerating diet. Once GI clears the patient anticipate discharge later today. The patient's follow-up with me in 5- 7 days Patient Condition at Discharge: Fair Plan - Discharge Summary Discharge Rx Participant: Yes New Discharge Prescriptions: New Pantoprazole Sodium [Protonix] 40 mg PO BID #60 tablet. Continue Losartan Potassium 100 mg PO DAILY traZODone HCL 450 mg PO HS Discharge Medication List Losartan Potassium 100 mg PO DAILY 08/06/15 [History] traZODone HCL 450 mg PO HS 01/06/20 [History] Pantoprazole Sodium [Protonix] 40 mg PO BID #60 tablet. 01/09/20 [Rx]
[2020-01-09 08:45] VITALS: BP 149/91; PULSE 87; RESP 18; TEMP 98.8
[2020-01-09] MEDS: PANTOPRAZOLE 40 MG/10 ML VIAL IV SCH (08:53)
[2020-01-09] MEDS: LOSARTAN 50 MG TAB PO SCH (08:53)
[2020-01-09] MEDS: MULTIVITAMINS, THERA 1 EACH TAB PO SCH (08:53)
[2020-01-09] MEDS: THIAMINE 100 MG TAB PO SCH (08:53)
[2020-01-09] MEDS ORDERED: PANTOPRAZOLE 40 MG TABLET PO STA (11:04)
--- NOTE | 2020-01-09 11:44 | CDI ---
Documentation Clarification Form Date: 01/09/2020 11:41:22 AM From: Kirsten Saucedo RN, CCDS Admit Date: 01/06/2020 07:03:00 PM Patient Name: Maik Bauman Visit Number: [id number] ATTENTION: The Clinical Documentation Specialists (CDI) and [facility] Coding Staff appreciate your assistance in clarifying documentation. Please respond to the clarification below the line at the bottom and electronically sign. The CDI & [facility] Coding staff will review the response and follow-up if needed. Please note: Queries are made part of the Legal Health Record. If you have any questions, please contact the author of this message via ITS. Dr. Wally Vásquez declining Hgb and Hct have been noted and lacks specificity to accurately reflect your patients severity of condition and clarification is needed. History/Risk Factors: ETOH, Upper GIB, Esophagitis Clinical indicators: 01/07 EGD:"heavy alcoholism admitted to the hospital with hematemesis. Severe ulcerative esophagitis extending from 30-40 cm from the incisors consistent with severe reflux esophagitis. Long segment Landa's esophagus extending from 25-35 cm from the incisors status post multiple biopsies. 2 cm clean-based GE junction ulcer status post biopsy." 01/05-01/07 Hemoglobin: 15.3/12.2/11.6 01/05-01/07 Hematocrit: 45.5/36.2/35.6 Treatment: Monitoring labs 01/05 2L IVF bolus 0.9% NS In order to capture the severity of condition, please clarify the clinical significance of the declining Hgb/Hct in a patient with an upper GIB and etiology if known: Acute blood loss anemia-This is the correct additional dx Acute on chronic blood loss anemia Chronic blood loss anemia Iron deficiency anemia Nutritional anemia Anemia of chronic disease Unable to determine Other, please specify (Last Revision: July 2017) MTDD
--- NOTE | 2020-01-10 00:05 | PN ---
PROGRESS NOTE DATE OF SERVICE: 01/09/2020 The patient is a 54 -year-old pleasant white male admitted to the hospital with upper GI bleed. He underwent an upper endoscopy yesterday that showed severe reflux esophagitis in the GE junction as well as Landa's esophagus. He is on Protonix 40 mg twice daily. No further bleeding. He wants to be discharged home today. PHYSICAL EXAMINATION: Appears comfortable in no apparent distress. Vital signs stable. Blood pressure 149/91. Pulse rate 87. Temperature 98.8. HEENT: Unremarkable. Conjunctivae pink. Sclerae anicteric. Oral cavity no lesions. NECK: No JVD or lymph node enlargement. CHEST: Clear to auscultation. HEART: Regular rate and rhythm. ABDOMEN: Soft. Bowel sounds are positive. No organomegaly. EXTREMITIES no pedal edema. NEUROLOGICAL: He is alert and oriented times three. No focal deficits. LAB DATA: WBC 4.8. Hemoglobin 7.6, platelets normal. Basic metabolic panel within normal limits. IMPRESSION: 1. Acute upper gastrointestinal bleed status post EGD ulcerative esophagitis and Landa's esophagus as well as 2 cm GE junction ulcer that was biopsied, which are still pending. Presently on Protonix 40 mg twice daily, doing well. No further episodes of bleeding. 2. Heavy alcohol abuse. RECOMMENDATIONS: 1. Start him on Prilosec 20 mg twice daily. 2. Abstinence from alcohol. 3. Await biopsy results. 4. Follow up in the office in 2 weeks. Thank you for this consultation. MMODL / IJN: [id number] /
--- NOTE | 2020-01-14 11:54 | CDI ---
Documentation Clarification Form Date: 01/14/2020 11:25:46 AM From: Shelly Romeo Phone: If you have a question about this query, please contact Paloma Bansal [employer] at [phone] between 8am and 5pm. Admit Date: 01/06/2020 07:03:00 PM Patient Name: Maik Bauman Visit Number: [id number] Discharge Date: 01/09/2020 03:33:00 PM ATTENTION: The Clinical Documentation Specialists (CDI) and [facility] Coding Staff appreciate your assistance in clarifying documentation. Please respond to the clarification below the line at the bottom and electronically sign. The CDI & [facility] Coding staff will review the response and follow-up if needed. Please note: Queries are made part of the Legal Health Record. If you have any questions, please contact the author of this message via ITS. Dr. Wally Steward Patient presents with alcohol intoxication and hematemesis. ER notes and DCS document esophageal varices. Please clarify if esophageal varices were the cause of the hematemesis. If esophageal varices were bleeding. EGD/colonoscopy performed and findings: severe ulceratiave esophagitis with severe reflux esophagitis. Long segment lo's esophagus. Clean based GE junction ulcer. Vital Signs: 97.9 F, 110 bpm, 153/93 98% RA Other Clinical Indicators: hematemesis. ABLA Treatment: EGD BX Medication: Protinix abstain from alcohol Consults: GI In your professional opinion, can you please clarify the underlying cause of GI bleed if known? Esophageal varices with bleeding Reflux Esophagitis Lo's esophagus Other, please specify Unable to determine-this is the correct findings for this patient. MTDD
== END 2020-01-09 15:33 | disposition home or self-care (01) | DRG 381 ==
LOC: EC 17:08 → 4SSUR 19:03
PROVIDERS: ADMIT Family Medicine; ATTEND Family Medicine
PROC: 0DB58ZX Excision of Esophagus, Via Natural or Artificial Opening Endoscopic, Diagnostic (ICD-10-PCS; principal; 2020-01-08 11:50)
PROC: 0DB48ZX Excision of Esophagogastric Junction, Via Natural or Artificial Opening Endoscopic, Diagnostic (ICD-10-PCS; principal; 2020-01-08 11:50)
DX: K22.11 Ulcer of esophagus with bleeding (principal); E87.2 Acidosis; D62 Acute posthemorrhagic anemia; I85.00 Esophageal varices without bleeding; K21.0 Gastro-esophageal reflux disease with esophagitis; F10.229 Alcohol dependence with intoxication, unspecified; F32.9 Major depressive disorder, single episode, unspecified; F41.9 Anxiety disorder, unspecified; I10 Essential (primary) hypertension; Y90.8 Blood alcohol level of 240 mg/100 ml or more; E78.5 Hyperlipidemia, unspecified; E86.0 Dehydration; K25.9 Gastric ulcer, unspecified as acute or chronic, without hemorrhage or perforation; Z81.8 Family history of other mental and behavioral disorders; Z87.891 Personal history of nicotine dependence; Z87.01 Personal history of pneumonia (recurrent)
CPT/HCPCS: 36415; 43239; 80048; 80053; 80320; 83605; 83735; 84484; 85025; 85027; 85610; 85730; 86850; 86900; 86901; 88305; 88312; 88313; 93005; 96361; 96365; 96366; 96372; 96375; 96376; 99285

== ENCOUNTER 2020-01-31 21:18 | Observation (INO) | payer OTHER ==
[2020-01-31] MEDS ORDERED: SODIUM CHLORIDE 0.9% 500 ML 500 ML IV STA (21:27)
[2020-01-31] MEDS ORDERED: LORazepam 2 MG/ML INJ IV PRN ×2 (21:27)
[2020-01-31] MEDS ORDERED: SODIUM CHLORIDE 0.9% 1,000 ML IV STA ×3 (21:27→22:25)
[2020-01-31] MEDS ORDERED: THIAMINE 100 MG/ML 2 ML VIAL IM STA (21:27)
[2020-01-31] MEDS ORDERED: ONDANSETRON 4 MG/2 ML VIAL IVP STA (21:27)
[2020-01-31] MEDS ORDERED: PANTOPRAZOLE 40 MG/10 ML VIAL IVP STA (21:27)
--- NOTE | 2020-01-31 21:30 | ED ---
Alcohol HPI - General Chief Complaint: Alcohol Stated Complaint: ETOH Time Seen by Provider: 01/31/20 21:27 Source: patient, EMS, RN notes reviewed, old records reviewed Mode of arrival: EMS Limitations: altered mental status, physical limitation - History of Present Illness MD Complaint: alcohol intoxication, alcohol dependence Last Drink: just M[employer] -: hour(s) Previous Visits for Alcohol Intoxication?: Yes Recent Trauma: No Associated Symptoms: nausea, vomiting, hematemesis Treatments Prior to Arrival: none Chronic Alcohol Use: Yes - Related Data Home Medications Medication Instructions Recorded Confirmed Losartan Potassium 100 mg PO DAILY 08/06/15 01/06/20 traZODone HCL 450 mg PO HS 01/06/20 01/06/20 Previous Rx's Medication Instructions Recorded Omeprazole [PriLOSEC] 40 mg PO BID #60 cap 01/09/20 Allergies Allergy/AdvReac Type Severity Reaction Status Date / Time No Known Allergies Allergy Verified 01/31/20 21:31 Review of Systems ROS Statement: Those systems with pertinent positive or pertinent negative responses have been documented in the HPI. ROS Other: All systems not noted in ROS Statement are negative. Past Medical History Past Medical History: Hypertension, Pneumonia Additional Past Medical History / Comment(s): Alcoholism, previous history of upper GI bleed/esophagitis, anxiety, depression , hyperlipidemia History of Any Multi-Drug Resistant Organisms: None Reported Past Surgical History: Breast Surgery Additional Past Surgical History / Comment(s): fatty mass removed from breast right 2005, wisdom teeth removed Past Anesthesia/Blood Transfusion Reactions: No Reported Reaction Past Psychological History: Anxiety, Depression Smoking Status: Never smoker Past Alcohol Use History: Abuse, Daily, Heavy Past Drug Use History: None Reported - Past Family History Mother Family Medical History: No Reported History Father Additional Family Medical History / Comment(s): heavy etoh and depression General Exam Limitations: altered mental status, physical limitation General appearance: appears intoxicated, anxious Head exam: Present: atraumatic, normocephalic, normal inspection Eye exam: Present: normal appearance, PERRL, EOMI. Absent: scleral icterus, conjunctival injection, periorbital swelling ENT exam: Present: normal exam, mucous membranes dry Neck exam: Present: normal inspection. Absent: tenderness, meningismus, lymphadenopathy Respiratory exam: Present: normal lung sounds bilaterally. Absent: respiratory distress, wheezes, rales, rhonchi, stridor Cardiovascular Exam: Present: normal rhythm, tachycardia, normal heart sounds. Absent: systolic murmur, diastolic murmur, rubs, gallop, clicks GI/Abdominal exam: Present: soft, normal bowel sounds. Absent: distended, tenderness, guarding, rebound, rigid Extremities exam: Present: normal inspection, full ROM, normal capillary refill. Absent: tenderness, pedal edema, joint swelling, calf tenderness Back exam: Present: normal inspection Neurological exam: Present: alert, oriented X3, CN II-XII intact Psychiatric exam: Present: normal affect, normal mood Skin exam: Present: warm, dry, intact, normal color. Absent: rash Course Vital Signs 01/31/20 01/31/20 21:20 22:04 Temperature 98.2 F Pulse Rate 122 H 110 H Respiratory 18 26 H Rate Blood Pressure 155/92 140/89 O2 Sat by Pulse 100 97 Oximetry - Reevaluation(s) Reevaluation #1: 01/31/20 22:22 medical record is reviewed Reevaluation #2: 01/31/20 22:22 Patient with no active vomiting of blood Medical Decision Making - Lab Data Result diagrams: 01/31/20 21:35 01/31/20 21:35 Lab Results 01/31/20 01/31/20 01/31/20 Range/Units 21:35 21:35 21:35 WBC 9.9 (3.8-10.6) k/uL RBC 4.90 (4.30-5.90) m/uL Hgb 14.3 (13.0-17.5) gm/dL Hct 42.1 (39.0-53.0) % MCV 86.0 (80.0-100.0) fL MCH 29.2 (25.0-35.0) pg MCHC 33.9 (31.0-37.0) g/dL RDW 14.3 (11.5-15.5) % Plt Count 430 (150-450) k/uL Neutrophils % 78 % Lymphocytes % 15 % Monocytes % 4 % Eosinophils % 1 % Basophils % 1 % Neutrophils # 7.7 (1.3-7.7) k/uL Lymphocytes # 1.5 (1.0-4.8) k/uL Monocytes # 0.4 (0-1.0) k/uL Eosinophils # 0.1 (0-0.7) k/uL Basophils # 0.1 (0-0.2) k/uL PT 9.7 (9.0-12.0) sec INR 0.9 (<1.2) Sodium 138 (137-145) mmol/L Potassium 5.4 H (3.5-5.1) mmol/L Chloride 94 L (98-107) mmol/L Carbon Dioxide 25 (22-30) mmol/L Anion Gap 19 mmol/L BUN 15 (9-20) mg/dL Creatinine 0.72 (0.66-1.25) mg/dL Est GFR (CKD-EPI)AfAm >90 (>60 ml/min/1.73 sqM) Est GFR (CKD-EPI)NonAf >90 (>60 ml/min/1.73 sqM) Glucose 89 (74-99) mg/dL Calcium 8.5 (8.4-10.2) mg/dL Phosphorus 4.6 H (2.5-4.5) mg/dL Magnesium 2.2 (1.6-2.3) mg/dL Total Bilirubin 1.0 (0.2-1.3) mg/dL AST 80 H (17-59) U/L ALT 56 H (4-49) U/L Alkaline Phosphatase 64 (38-126) U/L Ammonia (<30) umol/L Total Protein 7.6 (6.3-8.2) g/dL Albumin 4.7 (3.5-5.0) g/dL Lipase 238 (23-300) U/L Serum Alcohol 447 H* mg/dL Blood Type Blood Type Recheck Bld Type Recheck Status Antibody Screen Spec Expiration Date 01/31/20 01/31/20 Range/Units 21:35 21:35 WBC (3.8-10.6) k/uL RBC (4.30-5.90) m/uL Hgb (13.0-17.5) gm/dL Hct (39.0-53.0) % MCV (80.0-100.0) fL MCH (25.0-35.0) pg MCHC (31.0-37.0) g/dL RDW (11.5-15.5) % Plt Count (150-450) k/uL Neutrophils % % Lymphocytes % % Monocytes % % Eosinophils % % Basophils % % Neutrophils # (1.3-7.7) k/uL Lymphocytes # (1.0-4.8) k/uL Monocytes # (0-1.0) k/uL Eosinophils # (0-0.7) k/uL Basophils # (0-0.2) k/uL PT (9.0-12.0) sec INR (<1.2) Sodium (137-145) mmol/L Potassium (3.5-5.1) mmol/L Chloride (98-107) mmol/L Carbon Dioxide (22-30) mmol/L Anion Gap mmol/L BUN (9-20) mg/dL Creatinine (0.66-1.25) mg/dL Est GFR (CKD-EPI)AfAm (>60 ml/min/1.73 sqM) Est GFR (CKD-EPI)NonAf (>60 ml/min/1.73 sqM) Glucose (74-99) mg/dL Calcium (8.4-10.2) mg/dL Phosphorus (2.5-4.5) mg/dL Magnesium (1.6-2.3) mg/dL Total Bilirubin (0.2-1.3) mg/dL AST (17-59) U/L ALT (4-49) U/L Alkaline Phosphatase (38-126) U/L Ammonia <9 (<30) umol/L Total Protein (6.3-8.2) g/dL Albumin (3.5-5.0) g/dL Lipase (23-300) U/L Serum Alcohol mg/dL Blood Type A Positive Blood Type Recheck A Pos Bld Type Recheck Status No Antibody Screen NEGATIVE Spec Expiration Date 02/03/2020 9364 Critical Care Time Critical Care Time: Yes Total Critical Care Time: 31 Disposition Clinical Impression: Alcohol abuse, Dehydration, Upper GI bleed Disposition: ADMITTED IP TO THIS [facility] Condition: Serious Is patient prescribed a controlled substance at d/c from ED?: No Referrals: Wally Steward MD [Primary Care Provider] - 1-2 days
[2020-01-31 21:52] LABS: Basophils # (A) 0.1 k/uL (0-0.2); Basophils % (A) 1 %; Eosinophils # (A) 0.1 k/uL (0-0.7); Eosinophils % (A) 1 %; HCT 42.1 % (39.0-53.0); HGB 14.3 gm/dL (13.0-17.5); Lymphocytes # (A) 1.5 k/uL (1.0-4.8); Lymphocytes % (A) 15 %; MCH 29.2 pg (25.0-35.0); MCHC 33.9 g/dL (31.0-37.0); Monocytes # (A) 0.4 k/uL (0-1.0); Monocytes % (A) 4 %; Neutrophils # (A) 7.7 k/uL (1.3-7.7); Neutrophils % (A) 78 %; Platelet Count 430 k/uL (150-450); RDW 14.3 % (11.5-15.5); WBC 9.9 k/uL (3.8-10.6)
[2020-01-31 22:02] LABS: ALT 56 U/L (4-49); AST 80 U/L (17-59); African American GFR (CKD) >90 (>60 ml/min/1.73 sqM); Albumin 4.7 g/dL (3.5-5.0); Alkaline Phosphatase 64 U/L (38-126); Anion Gap 19 mmol/L; Blood Urea Nitrogen 15 mg/dL (9-20); Calcium 8.5 mg/dL (8.4-10.2); Carbon Dioxide 25 mmol/L (22-30); Chloride 94 mmol/L (98-107); Glucose 89 mg/dL (74-99); Magnesium 2.2 mg/dL (1.6-2.3); Non-African American GFR(CKD) >90 (>60 ml/min/1.73 sqM); Phosphorus 4.6 mg/dL (2.5-4.5); Potassium 5.4 mmol/L (3.5-5.1); Sodium 138 mmol/L (137-145); Total Protein 7.6 g/dL (6.3-8.2)
[2020-01-31 22:04] LABS: INR 0.9 (<1.2); Prothrombin Time 9.7 sec (9.0-12.0)
[2020-01-31 22:14] LABS: Alcohol 447 mg/dL
[2020-01-31] MEDS ORDERED: SODIUM CHLORIDE 0.9% 1,000 ML IV ONE (22:25)
[2020-01-31] MEDS: THIAMINE 100 MG TAB PO SCH (23:33)
[2020-02-01 00:08] LABS: Appearance,Urine Clear (Clear); Bilirubin,Urine Negative (Negative); Blood,Urine Trace (Negative); Color,Urine Yellow; Glucose,Urine (UA) Negative (Negative); Ketones,Urine 3+ (Negative); Leukocyte Esterase,Urine Negative (Negative); Mucus,Urine Occasional /hpf; Nitrite,Urine Negative (Negative); PH, Urine 5.5 (5.0-8.0); Protein,Urine 1+ (Negative); RBC,Urine <1 /hpf (0-5); Specific Gravity,Urine 1.016 (1.001-1.035); Urobilinogen,Urine <2.0 mg/dL (<2.0); WBC,Urine 1 /hpf (0-5)
[2020-02-01 00:12] LABS: Amphetamine Screen,Urine Not Detected (NotDetected); Barbiturate Screen,Urine Not Detected (NotDetected); Benzodiazepines Screen,Urine Not Detected (NotDetected); Cocaine Screen,Urine Not Detected (NotDetected); Methadone Screen, Urine Not Detected (NotDetected); Opiate Screen,Urine Not Detected (NotDetected); Oxycodone Screen, Urine Not Detected (NotDetected); Phencyclidine Screen,Urine Not Detected (NotDetected); Tricyclic Antidepressant,Urine Not Detected (NotDetected); Urn Cannabinoid Scrn Detected (NotDetected)
[2020-02-01] MEDS: LORazepam 2 MG/ML INJ IV PRN ×3 (03:47→13:48)
[2020-02-01 04:33] LABS: Basophils % (A) 0 %; Eosinophils % (A) 0 %; HCT 39.5 % (39.0-53.0); HGB 13.1 gm/dL (13.0-17.5); Lymphocytes % (A) 21 %; MCH 28.9 pg (25.0-35.0); MCHC 33.2 g/dL (31.0-37.0); MCV 86.9 fL (80.0-100.0); Mean Platelet Volume 6.7; Monocytes # (A) 0.4 k/uL (0-1.0); Monocytes % (A) 4 %; Neutrophils # (A) 6.9 k/uL (1.3-7.7); Neutrophils % (A) 72 %; Platelet Count 423 k/uL (150-450); RBC 4.55 m/uL (4.30-5.90); RDW 14.4 % (11.5-15.5); WBC 9.5 k/uL (3.8-10.6)
[2020-02-01] MEDS: THIAMINE 100 MG TAB PO SCH ×2 (07:57→17:21)
[2020-02-01 09:36] LABS: Basophils % (A) 0 %; Eosinophils % (A) 0 %; HCT 36.8 % (39.0-53.0); HGB 11.9 gm/dL (13.0-17.5); Lymphocytes # (A) 0.9 k/uL (1.0-4.8); Lymphocytes % (A) 13 %; MCH 28.7 pg (25.0-35.0); MCHC 32.4 g/dL (31.0-37.0); MCV 88.5 fL (80.0-100.0); Mean Platelet Volume 7.1; Monocytes # (A) 0.3 k/uL (0-1.0); Monocytes % (A) 4 %; Neutrophils # (A) 5.5 k/uL (1.3-7.7); Neutrophils % (A) 81 %; Platelet Count 334 k/uL (150-450); RBC 4.16 m/uL (4.30-5.90); RDW 14.3 % (11.5-15.5); WBC 6.7 k/uL (3.8-10.6)
--- NOTE | 2020-02-01 11:04 | P.HPIM ---
History of Present Illness On-call hospitalist covering Dr. Steward over the weekend, Dr. Steward will resume the care of the patient on Monday02/03/20 This is a pleasant 55 years old male with past medical history of GI bleed, depression, hypertension Was recently admitted to the hospital earlier this month, his status post EGD showing severe ulcerative esophagitis about 10 cm and long segment Landa's esophagus, with pathology report of the biopsy is Negative for intestinal metaplasia and negative for fungal organisms 2 cm gastroesophageal junction ulcer with pathology report is Negative for intestinal metaplasia He presents with nausea vomiting about twice and hematemesis, as it was blood in his vomitus. However he denies abdominal pain, no dizziness. Also patient was complaining of from drinking problem and he wants to quit drinking, is drinking about fifth of liquor/vodka Every day He was drinking alcohol just prior to coming to the hospital, also I denies smoking but he admits to dipping marijuana He denies chest pain or dyspnea He denies depression or suicidal ideation Vital showing patient is tachycardic about 109, he is afebrile on blood pressure is a stable at 106/68 this morning, his saturating 98% on 3 L. Hemoglobin is dropping slightly from 13.1 down to 11.9, CBC is unremarkable, mild hyperkalemia at 5.4, results BMP is unremarkable, ever enzymes slightly elevated with AST at 80 and ALT at 56. Urine analysis is not suspicious of infection. Urine drug screen is positive for marijuana Alcohol level was elevated at 447 on admission On admission he was started on Protonix IV, he got elbowed 3 L and a half of normal saline and continued at a rate of 100 mL per hour, also started on CIWA protocol and same Review of Systems CONSTITUTIONAL: No fever, no malaise, no fatigue. HEENT: No recent visual problems or hearing problems. Denied any sore throat. CARDIOVASCULAR: No orthopnea, PND, no palpitations, no syncope. PULMONARY: No shortness of breath, no cough, no hemoptysis. GASTROINTESTINAL: No diarrhea, Normoactive bowel sounds. NEUROLOGICAL: No headaches, no weakness, no numbness. HEMATOLOGICAL: Denies any bleeding or petechiae. GENITOURINARY: Denies any burning micturition, frequency, or urgency. MUSCULOSKELETAL/RHEUMATOLOGICAL: Denies any joint pain, swelling, or any muscle pain. ENDOCRINE: Denies any polyuria or polydipsia. Past Medical History Past Medical History: Hypertension, Pneumonia Additional Past Medical History / Comment(s): Alcoholism, previous history of upper GI bleed/esophagitis, anxiety, depression , hyperlipidemia History of Any Multi-Drug Resistant Organisms: None Reported Past Surgical History: Breast Surgery Additional Past Surgical History / Comment(s): fatty mass removed from breast right 2005, wisdom teeth removed Past Anesthesia/Blood Transfusion Reactions: No Reported Reaction Past Psychological History: Anxiety, Depression Smoking Status: Unknown if ever smoked Past Alcohol Use History: Abuse, Daily, Heavy Additional Past Alcohol Use History / Comment(s): The patient binge drinks alcohol and he drank a fifth of vodka today and every day for the past few w eeks. Past Drug Use History: None Reported - Past Family History Mother Family Medical History: No Reported History Father Additional Family Medical History / Comment(s): Heavy ETOH and depression. Medications and Allergies Home Medications Medication Instructions Recorded Confirmed Type Losartan Potassium 100 mg PO DAILY 08/06/15 01/06/20 History traZODone HCL 450 mg PO HS 01/06/20 01/06/20 History Omeprazole [PriLOSEC] 40 mg PO BID #60 cap 01/09/20 Rx Allergies Allergy/AdvReac Type Severity Reaction Status Date / Time No Known Allergies Allergy Verified 01/31/20 21:31 Physical Exam Vitals: Vital Signs Temp Pulse Pulse Resp BP BP Pulse Ox 02/01/20 07:49 109 H 18 02/01/20 05:00 98.4 F 109 H 18 116/68 98 01/31/20 23:00 97.6 F 96 103 H 18 107/67 158/86 96 01/31/20 22:04 110 H 26 H 140/89 97 01/31/20 21:20 98.2 F 122 H 18 155/92 100 Intake and Output 01/31/20 02/01/20 02/01/20 22:59 06:59 14:59 Intake Total 2400 Balance 2400 Intake: Amount of Fluid Infused ( 700 ml) Intake, IV Titration 1700 Amount Sodium Chloride 0.9% 1, 700 000 ml @ 100 mls/hr IV . Q10H [facility] Rx#:[id number] Sodium Chloride 0.9% 1, 1000 000 ml @ 999 mls/hr IV . Q1H1M [facility] Rx#:[id number] Other: Voiding Method Urinal Urinal # Voids 3 4 # Bowel Movements 0 Weight 94.347 kg GENERAL: The patient is alert and oriented x3, not in any acute distress. Well developed, well nourished. HEENT: Pupils are round and equally reacting to light. EOMI. No scleral icterus. No conjunctival pallor. Normocephalic, atraumatic. No pharyngeal erythema. No thyromegaly. CARDIOVASCULAR: S1 and S2 present. No murmurs, rubs, or gallops. PULMONARY: Chest is clear to auscultation, no wheezing or crackles. ABDOMEN: Soft, nontender, nondistended, normoactive bowel sounds. No palpable organomegaly. MUSCULOSKELETAL: No joint swelling or deformity. EXTREMITIES: No cyanosis, clubbing, or pedal edema. NEUROLOGICAL: Gross neurological examination did not reveal any focal deficits. SKIN: No rashes. No petechiae Results CBC & Chem 7: 02/01/20 09:11 01/31/20 21:35 Labs: Abnormal Lab Results - Last 24 Hours (Table) 01/31/20 01/31/20 02/01/20 Range/Units 21:35 23:48 09:11 RBC 4.16 L (4.30-5.90) m/uL Hgb 11.9 L (13.0-17.5) gm/dL Hct 36.8 L (39.0-53.0) % Lymphocytes # 0.9 L (1.0-4.8) k/uL Potassium 5.4 H (3.5-5.1) mmol/L Chloride 94 L (98-107) mmol/L Phosphorus 4.6 H (2.5-4.5) mg/dL AST 80 H (17-59) U/L ALT 56 H (4-49) U/L Urine Protein 1+ H (Negative) Urine Ketones 3+ H (Negative) Urine Blood Trace H (Negative) Urine Mucus Occasional H (None) /hpf U Marijuana (THC) Screen Detected H (NotDetected) Serum Alcohol 447 H* mg/dL Thrombosis Risk Factor Assmnt - Choose All That Apply Each Factor Represents 1 point: Age 41-60 years, Obesity (BMI >25) Other Risk Factors: No Other congenital or acquired thrombophilia - If yes, enter type in comment: No Thrombosis Risk Factor Assessment Total Risk Factor Score: 2 Thrombosis Risk Factor Assessment Level: Low Risk Assessment and Plan Assessment: Acute GI bleed Acute blood loss anemia Alcohol abuse and at-risk of alcohol withdrawal and delirium tremens 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 Consult psychiatrist. Continue with CIWA protocol and same Labs and medication were reviewed.. Continue same treatment. Continue with symptomatic treatment. Resume home medication. Monitor lytes and vitals. DVT and GI prophylaxis. Further recommendations of the clinical course of the patient DVT prophylaxis: Not heparin and review of GI bleed GI Prophylaxis: Protonix Prognosis is guarded
[2020-02-01] MEDS: ONDANSETRON 4 MG/2 ML VIAL IVP PRN ×2 (11:56→20:02)
[2020-02-01] MEDS: PANTOPRAZOLE 40 MG/10 ML VIAL IVP SCH ×2 (11:56→20:00)
--- NOTE | 2020-02-01 15:11 | CONS ---
CONSULTATION DATE OF DICTATION: 02/01/2020 REASON FOR CONSULTATION: Acute upper GI bleed. HISTORY OF PRESENT ILLNESS: The patient is a 55-year-old pleasant white male admitted to the hospital with 2 episodes of coffee-ground emesis. He was recently discharged from the hospital, at which time he was admitted with acute upper GI bleed 2 weeks ago. An upper endoscopy done on 01/07/2020 showed severe ulcerative esophagitis with a long segment of Landa's esophagus and a GE junction ulcer. Biopsies were done from this area that were negative for intestinal metaplasia. The patient was sent home on Protonix 40 mg twice daily and was advised to quit drinking. He states that for a week he did not drink, and then he started having alcohol, about a fifth a day. He presented to the hospital with upper GI bleed. Since being in the hospital, he is doing better. No abdominal pain. No further episodes of nausea, vomiting. PAST MEDICAL HISTORY: Significant for severe alcohol abuse, hypertension, recent upper GI bleed, hyperlipidemia, anxiety, depression. PAST SURGICAL HISTORY: Breast surgery for a left breast mass. SOCIAL HISTORY: Heavy alcohol use. Chronic smoker. MEDICATIONS: Medications at home include trazodone, Prilosec, losartan. ALLERGIES: NONE. FAMILY HISTORY: Unremarkable. REVIEW OF SYSTEMS: CARDIOPULMONARY: No chest pain or shortness of breath. GENITOURINARY: No dysuria or hematuria. MUSCULOSKELETAL: Unremarkable. SKIN: Unremarkable. ENDOCRINE: Unremarkable. PSYCHIATRIC: Unremarkable. NEUROLOGY: Unremarkable. ENT/VISION: Unremarkable. CONSTITUTIONAL: No recent weight loss. No fever, chills, night sweats. PHYSICAL EXAMINATION: He appears comfortable. No apparent distress. Vital signs are stable. Blood pressure is 132/86, pulse rate 82 per minute, and afebrile. HEENT examination unremarkable. Conjunctivae pink. Sclerae anicteric. Oral cavity no lesions. NECK: No JVD or lymph node enlargement. CHEST: Clear to auscultation. HEART: Regular rate and rhythm. ABDOMEN: Soft. Bowel sounds are positive. No organomegaly. EXTREMITIES: No pedal edema. SKIN: No rashes. NEUROLOGIC: Alert and oriented x3. No focal deficits. LABS: WBC 6.7, hemoglobin 11.9, platelets normal. Basic metabolic panel is within normal limits. Serum alcohol 447. IMPRESSION: 1. Acute upper gastrointestinal bleed. Patient presented with 2 episodes of coffee- ground emesis. Hemoglobin at 11.9 g/dL. He was just discharged home from the hospital 2 weeks ago, at which time he had an upper endoscopy done that showed severe reflux esophagitis and a 2 cm GE junction ulcer and long segment Landa's esophagus. 2. Heavy alcohol abuse. RECOMMENDATIONS: 1. Continue with Protonix 40 mg twice daily. 2. Start him on a clear liquid diet today. 3. Monitor CBC on a daily basis. 4. No plans on any repeat endoscopic intervention at the present time. We will follow with you closely. Thank you for this consultation. MMODL / IJN: [id number] /
[2020-02-01] MEDS: SODIUM CHLORIDE 0.9% 1,000 ML IV SCH (21:39)
[2020-02-02] MEDS: ONDANSETRON 4 MG/2 ML VIAL IVP PRN ×2 (04:17→14:42)
[2020-02-02 06:53] LABS: Basophils % (A) 0 %; Eosinophils % (A) 1 %; HCT 36.1 % (39.0-53.0); Lymphocytes # (A) 1.1 k/uL (1.0-4.8); Lymphocytes % (A) 22 %; MCH 29.6 pg (25.0-35.0); MCHC 33.3 g/dL (31.0-37.0); MCV 88.7 fL (80.0-100.0); Mean Platelet Volume 7.1; Monocytes # (A) 0.2 k/uL (0-1.0); Monocytes % (A) 4 %; Neutrophils # (A) 3.8 k/uL (1.3-7.7); Neutrophils % (A) 72 %; Platelet Count 268 k/uL (150-450); RBC 4.07 m/uL (4.30-5.90); RDW 14.3 % (11.5-15.5); WBC 5.2 k/uL (3.8-10.6)
[2020-02-02 07:00] LABS: ALT 51 U/L (4-49); AST 55 U/L (17-59); African American GFR (CKD) >90 (>60 ml/min/1.73 sqM); Albumin 3.4 g/dL (3.5-5.0); Alkaline Phosphatase 54 U/L (38-126); Anion Gap 9 mmol/L; Bilirubin,Unconjugated 1.3 mg/dL (0.0-1.1); Blood Urea Nitrogen 6 mg/dL (9-20); Calcium 8.4 mg/dL (8.4-10.2); Carbon Dioxide 29 mmol/L (22-30); Chloride 96 mmol/L (98-107); Glucose 95 mg/dL (74-99); Magnesium 1.7 mg/dL (1.6-2.3); Non-African American GFR(CKD) >90 (>60 ml/min/1.73 sqM); Potassium 3.8 mmol/L (3.5-5.1); Sodium 134 mmol/L (137-145); Total Bilirubin 1.3 mg/dL (0.2-1.3); Total Protein 5.8 g/dL (6.3-8.2)
[2020-02-02] MEDS: THIAMINE 100 MG TAB PO SCH ×2 (08:46→17:00)
[2020-02-02] MEDS: PANTOPRAZOLE 40 MG/10 ML VIAL IVP SCH ×2 (08:46→20:14)
--- NOTE | 2020-02-02 10:05 | PN ---
PROGRESS NOTE DATE OF DICTATION: 02/02/2020. REQUESTING PHYSICIAN: Dr. Steward. The patient is a 55-year-old white male with history of alcoholism admitted to the hospital with multiple episodes of coffee-ground emesis. He is still having some black tarry stools. He had a liquid diet. He had an upper endoscopy 3 weeks ago that showed severe ulcerative esophagitis, 2 cm GE junction ulcer with Landa's esophagus. Started on 40 mg twice daily. Continues to complain of severe nausea today. No emesis. No abdominal pain. PHYSICAL EXAMINATION: Appears comfortable in no apparent distress. Vital signs stable. Blood pressure 123/76, pulse rate 59, temperature 98.9. HEENT examination unremarkable. Conjunctivae pink. Sclerae anicteric. Oral cavity no lesions. NECK: No JVD or lymph node enlargement. CHEST: Clear to auscultation. HEART: Regular rate and rhythm. ABDOMEN: Soft, nontender, nondistended. Bowel sounds are positive. No organomegaly. EXTREMITIES: No pedal edema. SKIN no rashes. NEUROLOGIC: Alert and oriented x3. No focal deficits. LABS: WBC 5.2, hemoglobin 12, platelets normal. Basic metabolic panel is within normal limits. IMPRESSION: 1. Acute upper gastrointestinal bleed secondary to severe ulcerative esophagitis, status post EGD 3 weeks ago during last hospitalization. 2. Persistent nausea, which is gradually improving. 3. Heavy alcohol abuse. RECOMMENDATIONS: 1. Continue with Protonix 40 mg twice a day. 2. Remain on a clear liquid diet. 3. Antiemetics as needed. 4. No plans for any endoscopy intervention at the present time. 5. We will follow with you closely. Thank you for this consultation. MMODL / IJN: [id number] /
--- NOTE | 2020-02-02 12:56 | P.PN ---
Subjective On-call hospitalist covering Dr. Steward over the weekend, Dr. Steawrd will resume the care of the patient on Monday02/03/20 This is a pleasant 55 years old male with past medical history of GI bleed, depression, hypertension Was recently admitted to the hospital earlier this month, his status post EGD showing severe ulcerative esophagitis about 10 cm and long segment Landa's esophagus, with pathology report of the biopsy is Negative for intestinal metaplasia and negative for fungal organisms 2 cm gastroesophageal junction ulcer with pathology report is Negative for intestinal metaplasia He presents with nausea vomiting about twice and hematemesis, as it was blood in his vomitus. However he denies abdominal pain, no dizziness. Also patient was complaining of from drinking problem and he wants to quit drinking, is drinking about fifth of liquor/vodka Every day He was drinking alcohol just prior to coming to the hospital, also I denies smoking but he admits to dipping marijuana He denies chest pain or dyspnea He denies depression or suicidal ideation Vital showing patient is tachycardic about 109, he is afebrile on blood pressure is a stable at 106/68 this morning, his saturating 98% on 3 L. Hemoglobin is dropping slightly from 13.1 down to 11.9, CBC is unremarkable, mild hyperkalemia at 5.4, results BMP is unremarkable, ever enzymes slightly elevated with AST at 80 and ALT at 56. Urine analysis is not suspicious of infection. Urine drug screen is positive for marijuana Alcohol level was elevated at 447 on admission On admission he was started on Protonix IV, he got elbowed 3 L and a half of normal saline and continued at a rate of 100 mL per hour, also started on CIWA protocol and same 02/02/2020 Patient is calm in bed, not in distress, complaining of from the toe headache, nausea but no chest pain or dyspnea Vitas looks stable and patient is afebrile. Labs including CBC and BMP looks stable, his sodium slightly low at 134, potassium 3.8 which is within reference limits. Creatinine is normal. Liver enzymes AST and ALT are improving. Patient remains on CIWA protocol, thiamine, Protonix IV 40 M twice daily and normal saline at 75 mL/h GI team R following the case closely and psych team was consulted Dr. Steward will resume the care of the patient tomorrow Review of systems CONSTITUTIONAL: No fever, no malaise, no fatigue. HEENT: No recent visual problems or hearing problems. Denied any sore throat. CARDIOVASCULAR: No orthopnea, PND, no palpitations, no syncope. PULMONARY: No shortness of breath, no cough, no hemoptysis. GASTROINTESTINAL: No diarrhea,no vomiting, no abdominal pain. Normoactive bowel sounds. NEUROLOGICAL: no weakness, no numbness. GENITOURINARY: Denies any burning micturition, frequency, or urgency. MUSCULOSKELETAL/RHEUMATOLOGICAL: Denies any joint pain, swelling, or any muscle pain. ENDOCRINE: Denies any polyuria or polydipsia. Active Medications Generic Name Dose Route Start Last Admin Trade Name Freq PRN Reason Stop Dose Admin Sodium Chloride 1,000 mls @ 75 mls/hr 02/01/20 21:45 02/01/20 21:39 Saline 0.9% IV 75 mls/hr .[id number] LIDIA Administration Lorazepam 1 mg 01/31/20 21:27 02/01/20 13:48 Ativan IV 1 mg Q2HR PRN Administration CIWA 8 or 9 Lorazepam 1 mg 01/31/20 21:27 Ativan IV Q1HR PRN CIWA 10 to 15 Lorazepam 2 mg 01/31/20 21:27 01/31/20 22:02 Ativan IV 02/02/20 21:28 2 mg Q10M PRN Administration CIWA 16 or higher Ondansetron HCl 4 mg 02/01/20 10:45 02/02/20 04:17 Zofran IVP 4 mg Q6HR PRN Administration Nausea And Vomiting Pantoprazole Sodium 40 mg 02/01/20 10:45 02/02/20 08:46 Protonix IVP 40 mg BID LIDIA Administration Thiamine HCl 100 mg 01/31/20 22:00 02/02/20 08:46 Vitamin B-1 PO 100 mg BID-W/MEALS LIDIA Administration Objective - Vital Signs Vital signs: Vital Signs Temp 98.8 F 02/02/20 11:39 Pulse 76 02/02/20 11:39 Resp 18 02/02/20 11:39 BP 143/77 02/02/20 11:39 Pulse Ox 99 02/02/20 11:39 Intake & Output 02/01/20 02/02/20 02/02/20 18:59 06:59 18:59 Intake Total 360 2700 Balance 360 2700 Intake: Intake, IV Titration 900 Amount Sodium Chloride 0.9% 1, 900 000 ml @ 75 mls/hr IV . [id number] [facility] Rx#:[id number] Oral 360 1800 Other: Voiding Method Urinal Urinal Urinal # Voids 3 4 # Bowel Movements 2 - Exam GENERAL: The patient is alert and oriented x3, not in any acute distress. Well developed, well nourished. HEENT: Pupils are round and equally reacting to light. EOMI. No scleral icterus. No conjunctival pallor. Normocephalic, atraumatic. No pharyngeal erythema. No thyromegaly. CARDIOVASCULAR: S1 and S2 present. No murmurs, rubs, or gallops. PULMONARY: Chest is clear to auscultation, no wheezing or crackles. ABDOMEN: Soft, nontender, nondistended, normoactive bowel sounds. No palpable organomegaly. MUSCULOSKELETAL: No joint swelling or deformity. EXTREMITIES: No cyanosis, clubbing, or pedal edema. NEUROLOGICAL: Gross neurological examination did not reveal any focal deficits. SKIN: No rashes. no petechiae. - Labs CBC & Chem 7: 02/02/20 06:06 02/02/20 06:06 Labs: Abnormal Lab Results - Last 24 Hours (Table) 02/02/20 02/02/20 Range/Units 06:06 06:06 RBC 4.07 L (4.30-5.90) m/uL Hgb 12.0 L (13.0-17.5) gm/dL Hct 36.1 L (39.0-53.0) % Sodium 134 L (137-145) mmol/L Chloride 96 L (98-107) mmol/L BUN 6 L (9-20) mg/dL Creatinine 0.64 L (0.66-1.25) mg/dL Unconjugated Bilirubin 1.3 H (0.0-1.1) mg/dL ALT 51 H (4-49) U/L Total Protein 5.8 L (6.3-8.2) g/dL Albumin 3.4 L (3.5-5.0) g/dL Assessment and Plan Assessment: Acute GI bleed Acute blood loss anemia Alcohol abuse and at-risk of alcohol withdrawal and delirium tremens 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 Consult psychiatrist. Continue with CIWA protocol and same Labs and medication were reviewed.. Continue same treatment. Continue with symptomatic treatment. Resume home medication. Monitor lytes and vitals. DVT and GI prophylaxis. Further recommendations of the clinical course of the patient DVT prophylaxis: Not heparin and review of GI bleed GI Prophylaxis: Protonix Prognosis is guarded
[2020-02-02] MEDS: SODIUM CHLORIDE 0.9% 1,000 ML IV SCH (14:40)
[2020-02-02] MEDS: LORazepam 2 MG/ML INJ IV PRN (20:14)
[2020-02-03] MEDS: ONDANSETRON 4 MG/2 ML VIAL IVP PRN ×2 (00:07→07:53)
[2020-02-03] MEDS: LORazepam 2 MG/ML INJ IV PRN (01:53)
[2020-02-03] MEDS: SODIUM CHLORIDE 0.9% 1,000 ML IV SCH (01:54)
[2020-02-03 05:32] VITALS: RESP 16
[2020-02-03 07:02] LABS: ALT 75 U/L (4-49); AST 72 U/L (17-59); African American GFR (CKD) >90 (>60 ml/min/1.73 sqM); Albumin 3.5 g/dL (3.5-5.0); Alkaline Phosphatase 58 U/L (38-126); Anion Gap 6 mmol/L; Bilirubin, Delta 0.1 mg/dL (0.0-0.2); Bilirubin,Unconjugated 0.8 mg/dL (0.0-1.1); Blood Urea Nitrogen 2 mg/dL (9-20); Calcium 8.8 mg/dL (8.4-10.2); Carbon Dioxide 31 mmol/L (22-30); Chloride 99 mmol/L (98-107); Glucose 94 mg/dL (74-99); Magnesium 1.8 mg/dL (1.6-2.3); Non-African American GFR(CKD) >90 (>60 ml/min/1.73 sqM); Potassium 4.4 mmol/L (3.5-5.1); Sodium 136 mmol/L (137-145); Total Bilirubin 0.9 mg/dL (0.2-1.3)
[2020-02-03] MEDS: THIAMINE 100 MG TAB PO SCH (07:52)
[2020-02-03] MEDS: PANTOPRAZOLE 40 MG/10 ML VIAL IVP SCH (07:52)
--- NOTE | 2020-02-03 08:08 | P.PN ---
Subjective Progress Note Date: 02/03/20 Principal diagnosis: The patient is here essentially for gastritis and reflux esophagitis with GI bleed related to alcoholism. He had binge alcohol several days ago. We will advance diet today. Otherwise, no new complaints. No hemoptysis stated. Objective - Vital Signs Vital signs: Vital Signs Temp 98.1 F 02/03/20 05:00 Pulse 77 02/03/20 05:00 Resp 16 02/03/20 05:00 BP 152/91 02/03/20 05:00 Pulse Ox 97 02/03/20 05:00 Intake & Output 02/02/20 02/03/20 02/03/20 18:59 06:59 18:59 Intake Total 240 1015 Balance 240 1015 Intake: Intake, IV Titration 725 Amount Sodium Chloride 0.9% 1, 725 000 ml @ 75 mls/hr IV . [id number] [facility] Rx#:[id number] Oral 240 290 Other: Voiding Method Urinal Toilet # Voids 3 1 # Bowel Movements 1 - Constitutional General appearance: Present: average body habitus - EENT Eyes: Absent: abnormal pupil - Neck Neck: Absent: lymphadenopathy - Respiratory Respiratory: bilateral: CTA - Cardiovascular Rhythm: regular Heart sounds: normal: S1, S2 Abnormal Heart Sounds: Absent: S3 Gallop - Gastrointestinal General gastrointestinal: Present: soft. Absent: tenderness - Integumentary Integumentary: Absent: cellulitis - Labs CBC & Chem 7: 02/02/20 06:06 02/03/20 06:08 Labs: Abnormal Lab Results - Last 24 Hours (Table) 02/03/20 Range/Units 06:08 Sodium 136 L (137-145) mmol/L Carbon Dioxide 31 H (22-30) mmol/L BUN 2 L (9-20) mg/dL Creatinine 0.64 L (0.66-1.25) mg/dL AST 72 H (17-59) U/L ALT 75 H (4-49) U/L Total Protein 6.0 L (6.3-8.2) g/dL Assessment and Plan (1) Alcohol abuse Current Visit: Yes Status: Acute Code(s): F10.10 - ALCOHOL ABUSE, UNCOMPLICATED SNOMED Code(s): 88841322 (2) Upper GI bleed Current Visit: Yes Status: Acute Code(s): K92.2 - GASTROINTESTINAL HEMORRHAGE, UNSPECIFIED SNOMED Code(s): 59792143 Plan: Continue to follow. Anticipate discharge in next 24 hours.
[2020-02-03 08:23] LABS: Basophils % (A) 0 %; Eosinophils # (A) 0.3 k/uL (0-0.7); Eosinophils % (A) 5 %; HCT 38.2 % (39.0-53.0); HGB 12.3 gm/dL (13.0-17.5); Lymphocytes # (A) 1.2 k/uL (1.0-4.8); Lymphocytes % (A) 23 %; MCH 28.8 pg (25.0-35.0); MCHC 32.3 g/dL (31.0-37.0); MCV 89.4 fL (80.0-100.0); Mean Platelet Volume 7.6; Monocytes # (A) 0.2 k/uL (0-1.0); Monocytes % (A) 4 %; Neutrophils # (A) 3.5 k/uL (1.3-7.7); Neutrophils % (A) 66 %; Platelet Count 267 k/uL (150-450); RBC 4.27 m/uL (4.30-5.90); RDW 14.2 % (11.5-15.5); WBC 5.3 k/uL (3.8-10.6)
[2020-02-03] MEDS ORDERED: LOSARTAN 50 MG TAB PO SCH (09:00)
[2020-02-03 11:55] VITALS: BP 163/83; PULSE 71; TEMP 98.5
--- NOTE | 2020-02-03 14:25 | P.DS ---
Providers Date of admission: 01/31/20 22:25 Expected date of discharge: 02/03/20 Attending physician: Wally Steward Consults: 01/31/20 22:25 Consult Physician Routine Consulting Provider: Huma Bautista Consult Reason/Comments: gib Do you want consulting provider notified?: Yes 02/01/20 11:03 Consult Physician Routine Consulting Provider: Dillon Blum Reason/Comments: Depression, alcohol abuse Do you want consulting provider notified?: Yes Primary care physician: Wally Steward - Discharge Diagnosis(es) (1) Alcohol abuse Current Visit: Yes Status: Acute (2) Upper GI bleed Current Visit: Yes Status: Acute Hospital Course: The patient was admitted for alcoholic gastritis. GIB was stabilized.Appreciate GI and psychiatric consultation. The patient has and underlying history of alcholism and will be discharge without delirium tremens. Patient Condition at Discharge: Stable Plan - Discharge Summary Discharge Rx Participant: No New Discharge Prescriptions: New Pantoprazole Sodium [Protonix] 40 mg PO DAILY #30 tablet. Continue Losartan Potassium 100 mg PO DAILY traZODone HCL 450 mg PO HS Discharge Medication List Losartan Potassium 100 mg PO DAILY 08/06/15 [History] traZODone HCL 450 mg PO HS 01/06/20 [History] Pantoprazole Sodium [Protonix] 40 mg PO DAILY #30 tablet. 02/03/20 [Rx] Follow up Appointment(s)/Referral(s): Wally Steward MD [Primary Care Provider] - 1-2 days
--- NOTE | 2020-02-03 19:26 | P.PN ---
Subjective Progress Note Date: 02/03/20 Principal diagnosis: Nausea and vomiting, coffee-ground emesis, esophagitis Patient is seen lying in bed today reporting that he is still somewhat nauseated however no further vomiting. He has tolerated a diet. Objective - Vital Signs Vital signs: Vital Signs Temp 98.1 F 02/03/20 05:00 Pulse 77 02/03/20 05:00 Resp 16 02/03/20 05:00 BP 152/91 02/03/20 05:00 Pulse Ox 97 02/03/20 05:00 Intake & Output 02/02/20 02/03/20 02/03/20 18:59 06:59 18:59 Intake Total 240 1015 Balance 240 1015 Intake: Intake, IV Titration 725 Amount Sodium Chloride 0.9% 1, 725 000 ml @ 75 mls/hr IV . [id number] [facility] Rx#:[id number] Oral 240 290 Other: Voiding Method Urinal Toilet # Voids 3 1 # Bowel Movements 1 - Exam On physical examination, patient appears comfortable in no apparent distress. HEAD: Normocephalic, atraumatic. EYES: No scleral icterus. No conjunctival injection. MOUTH: No lesions, tongue midline. NECK: Trachea midline, no gross abnormalities. ABDOMEN: Soft, obese. Bowel sounds are positive. No organomegaly. No guarding or rigidity. EXTREMITIES: No pedal edema. SKIN: No rashes, no jaundice. NEUROLOGIC: Alert and oriented x3. No focal deficits. - Labs CBC & Chem 7: 02/03/20 06:08 02/03/20 06:08 Labs: Abnormal Lab Results - Last 24 Hours (Table) 02/03/20 02/03/20 Range/Units 06:08 06:08 RBC 4.27 L (4.30-5.90) m/uL Hgb 12.3 L (13.0-17.5) gm/dL Hct 38.2 L (39.0-53.0) % Sodium 136 L (137-145) mmol/L Carbon Dioxide 31 H (22-30) mmol/L BUN 2 L (9-20) mg/dL Creatinine 0.64 L (0.66-1.25) mg/dL AST 72 H (17-59) U/L ALT 75 H (4-49) U/L Total Protein 6.0 L (6.3-8.2) g/dL Assessment and Plan (1) Coffee ground emesis Narrative/Plan: 55-year-old male presenting with complaints of nausea and vomiting and coffee- ground emesis. He had a EGD performed for evaluation less than 1 month ago with findings of severe esophagitis. He continues to drink alcohol outpatient settin g. He has tolerated advancement of his diet. No further vomiting. Status: Acute Code(s): K92.0 - HEMATEMESIS SNOMED Code(s): 79868187 (2) Nausea and vomiting Status: Acute Code(s): R11.2 - NAUSEA WITH VOMITING, UNSPECIFIED SNOMED Code (s): 63209548 (3) Acute blood loss anemia Status: Acute Code(s): D62 - ACUTE POSTHEMORRHAGIC ANEMIA SNOMED Code(s): 471157785 (4) Alcohol abuse Status: Acute Code(s): F10.10 - ALCOHOL ABUSE, UNCOMPLICATED SNOMED Code(s): 34536392 Plan: Supportive care Continue to monitor hemoglobin and hematocrit and transfuse as needed Okay to advance diet as tolerated Continue Protonix 40 mg twice daily Alcohol abstinence Thank you for allowing us to participate in the care of the patient
[2020-02-03] MEDS ORDERED: traZODone HCL 100 MG TAB PO SCH (21:00)
[2020-02-03] MEDS ORDERED: traZODone HCL 50 MG TAB PO SCH (21:00)
== END 2020-02-03 16:14 | disposition home or self-care (01) ==
LOC: EC 21:18 → 5NMEDONC 22:25
PROVIDERS: ADMIT Family Medicine; ATTEND Family Medicine
DX: F10.229 Alcohol dependence with intoxication, unspecified (principal); K22.11 Ulcer of esophagus with bleeding; K29.20 Alcoholic gastritis without bleeding; I10 Essential (primary) hypertension; F32.9 Major depressive disorder, single episode, unspecified; F41.9 Anxiety disorder, unspecified; E87.5 Hyperkalemia; Y90.8 Blood alcohol level of 240 mg/100 ml or more; E78.5 Hyperlipidemia, unspecified; E66.9 Obesity, unspecified; Z68.29 Body mass index [BMI] 29.0-29.9, adult; D62 Acute posthemorrhagic anemia; R00.0 Tachycardia, unspecified; F19.10 Other psychoactive substance abuse, uncomplicated; K25.4 Chronic or unspecified gastric ulcer with hemorrhage; F17.200 Nicotine dependence, unspecified, uncomplicated; K21.0 Gastro-esophageal reflux disease with esophagitis; E86.0 Dehydration; R19.5 Other fecal abnormalities; Z87.19 Personal history of other diseases of the digestive system; Z87.01 Personal history of pneumonia (recurrent); Z79.899 Other long term (current) drug therapy; Z81.8 Family history of other mental and behavioral disorders
CPT/HCPCS: 96376 ×3; 96361 ×4; 96372; 96374; 96375; 99291; 36415; 86900; 86901; 80053; 80048 ×2; 80076 ×2; 82140; 83690; 83735 ×3; 84100; 85025 ×4; 85610; 86850; 81001; 80306; 80320; G0378 ×4; J2060 ×4; J3411; J2405 ×4; C9113 ×4